=== PATIENT | female | born 1955 | race Caucasian/White ===

== ENCOUNTER 2020-08-02 07:23 | Outpatient (CLI) | payer MEDICARE, SELFPAY ==
[2020-08-02 07:49] LABS: Hematocrit 41.1 % (37.0-47.0); Hemoglobin 13.5 g/dL (12.0-15.0); Mean Corpuscular HGB Conc 32.8 g/dl (32-36); Mean Corpuscular Hemoglobin 28.5 pg (26-34); Mean Corpuscular Volume 86.7 fl (80-100); Mean Platelet Volume 10.1 fl (7.4-10.4); Platelet Count Result 287 k/mm3 (150-375); Red Blood Count 4.74 M/mm3 (4.2-5.4); White Blood Count 4.7 K/mm3 (4.5-10.0)
[2020-08-02 08:01] LABS: Alanine Aminotransferase 23 U/L (4-35); Albumin Level 3.8 g/dL (3.5-5.1); Alkaline Phosphatase 59 U/L (38-126); Anion Gap 7 mmol/L (8-16); Aspartate Amino Transferase 38 U/L (14-36); Bilirubin,Total 0.3 mg/dL (0.2-1.3); Blood Urea Nitrogen 13 mg/dL (7-17); Calcium 8.8 mg/dL (8.4-10.2); Carbon Dioxide 26 mmol/L (22-30); Chloride 107 mmol/L (98-107); Cholesterol 193 mg/dL (0-200); Estimated Glomerular Filt Rate > 60; Glucose 86 mg/dL (65-105); HDL Direct 41 mg/dL; Sodium 140 mmol/L (137-145); Triglycerides 76 mg/dL (<150)
[2020-08-02 08:12] LABS: Parathyroid Intact 42.1 pg/mL (7.5-53.5)
[2020-08-02 08:17] LABS: LDL Cholesterol Direct 120 mg/dL
[2020-08-02 08:30] LABS: Vitamin D 25 Hydroxy 84.3 ng/mL
[2020-08-04 18:08] LABS: Free T4 Free Thyroxine 1.12 ng/mL (0.78-2.19)
== END 2020-08-02 07:24 | disposition home or self-care (01) ==
PROVIDERS: PCP Family Medicine; Referring Provider Internal Medicine Endocrinology, Diabetes & Metabolism; Visit Provider Family Medicine
DX: Z13.6 Encounter for screening for cardiovascular disorders (principal); D64.9 Anemia, unspecified; E03.9 Hypothyroidism, unspecified; M81.0 Age-related osteoporosis without current pathological fracture; R73.02 Impaired glucose tolerance (oral); Z00.00 Encounter for general adult medical examination without abnormal findings; M81.6 Localized osteoporosis [Lequesne]
CPT/HCPCS: 36415; 80053; 80061; 82306; 83970; 84439; 84443; 85027

== ENCOUNTER 2020-08-18 13:48 | Outpatient (CLI) | payer MEDICARE, SELFPAY ==
--- NOTE | ~2020-08-18 | DEXA_ITS ---
Bone Density Report Name: Vilma Mckenzie Age: 65 Sex: Female Ethnicity: White Date of : 1955 Indication: postmenopausal osteoporosis; monitoring treatment; hyperparathyroidism; height loss; LOCALIZED OSTEOPOROSIS W/O CURRENT PATHOLOGICAL FRACTURE Referring Provider: PaxtonJaylan Study: Bone densitometry was performed. Exam Date: August 18, 2020 Accession number: [id number] Bone Density: Region BMD T-score Z-score Classification AP Spine (L1-L4) 0.700 -3.2 -1.4 Osteoporosis Femoral Neck (Left) 0.591 -2.3 -0.8 Osteopenia Total Hip (Left) 0.656 -2.3 -1.1 Osteopenia Total Hip Bilateral Avg 0.643 -2.4 -1.2 Osteopenia Femoral Neck (Right) 0.518 -3.0 -1.5 Osteoporosis Total Hip (Right) 0.629 -2.6 -1.3 Osteoporosis World Health Organization criteria for BMD impression classify patients as: Normal (T-score at or above -1.0), Osteopenia (T-score between -1.0 and -2.5), or Osteoporosis (T-score at or below -2.5). 10-year Fracture Risk: FRAX not reported because: Some T-score for Spine Total or Hip Total or Femoral Neck at or below -2.5 Treated for osteoporosis Previous Exams: Region Exam Age BMD T-score BMD Change BMD Change Date g/cm2 vs Baseline vs Previous AP Spine(L1-L4) 08/18/2020 65 0.700 -3.2 -0.009(-1.3%)# -0.023(-3.2%)* 08/12/2018 63 0.723 -2.9 0.014(2.0%)# 0.014(2.0%) 07/22/2016 61 0.709 -3.1 0.000(0.0%)# -0.023(-3.1%) 06/14/2014 59 0.732 -2.9 0.023(3.2%)# 0.023(3.2%)# 06/11/2012 57 0.709 -3.1 Total Hip(Left) 08/18/2020 65 0.656 -2.3 -0.027(-4.0%)# -0.059(-8.2%)* 08/12/2018 63 0.715 -1.9 0.031(4.6%)# 0.023(3.3%) 07/22/2016 61 0.692 -2.1 0.008(1.2%)# 0.028(4.2%)* 06/14/2014 59 0.664 -2.3 -0.020(-2.9%)# -0.020(-2.9%)# 06/11/2012 57 0.683 -2.1 Total Hip(Right) 08/18/2020 65 0.629 -2.6 -0.045(-6.7%)# -0.015(-2.3%) 08/12/2018 63 0.644 -2.4 -0.030(-4.5%)# -0.015(-2.2%) 07/22/2016 61 0.658 -2.3 -0.016(-2.3%)# -0.018(-2.6%) 06/14/2014 59 0.676 -2.2 0.002(0.3%)# 0.002(0.3%)# 06/11/2012 57 0.674 -2.2 *Denotes significance at 95% confidence level, LSC for AP Spine = 0.022 g/cm2, LSC for Total Hip = 0.027 g/cm2 Clinical Information Provided by Patient: Is being treated for osteoporosis Has used the following medications: Boniva (i.e. ibandronate), Evista (i.e. 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
== END 2020-08-18 13:49 | disposition home or self-care (01) ==
LOC: ANHIMG 13:50
PROVIDERS: PCP Family Medicine; Visit Provider Internal Medicine Endocrinology, Diabetes & Metabolism
DX: M81.0 Age-related osteoporosis without current pathological fracture (principal); M85.852 Other specified disorders of bone density and structure, left thigh; M85.851 Other specified disorders of bone density and structure, right thigh
CPT/HCPCS: 77080

== ENCOUNTER 2020-09-02 09:32 | Outpatient (CLI) | payer MEDICARE, SELFPAY ==
[2020-09-07 13:54] LABS: Total Volume 1700 mL; Urine Calcium 11.1 mg/dL
== END 2020-09-02 09:33 | disposition home or self-care (01) ==
PROVIDERS: PCP Family Medicine; Visit Provider Internal Medicine Endocrinology, Diabetes & Metabolism
DX: M81.8 Other osteoporosis without current pathological fracture (principal)
CPT/HCPCS: 82340

== ENCOUNTER 2020-09-18 08:46 | Outpatient (CLI) | payer MEDICARE, SELFPAY ==
--- NOTE | ~2020-09-18 | MM_ITS ---
EXAMINATION: MM screening porfirio BI w rosi HISTORY: Screening mammogram TECHNIQUE: Craniocaudal and mediolateral oblique 3-D tomosynthesis images were obtained and synthetic 2-D images were generated. CAD analysis was submitted and interpreted. COMPARISON: No prior mammogram is available for comparison at this institution. BREAST PARENCHYMAL COMPOSITION: The breasts are heterogeneously dense, which may obscure small masses . FINDINGS: Numerous microcalcifications are scattered in the breast, more numerous on the right. There is no evidence of suspicious mass, calcification, or architectural distortion to suggest malignancy in either breast. There has been no suspicious interval change. IMPRESSION: 1. No mammographic evidence of malignancy. 2. Recommend routine screening mammography in one year. BI-RADS Category 2: Benign finding(s). Reviewed, dictated and finalized at location A.
== END 2020-09-18 08:47 | disposition home or self-care (01) ==
PROVIDERS: PCP Family Medicine; Visit Provider Family Medicine
DX: Z12.31 Encounter for screening mammogram for malignant neoplasm of breast (principal)
CPT/HCPCS: 77063; 77067

== ENCOUNTER 2021-06-22 07:31 | Outpatient (CLI) | payer MEDICARE, SELFPAY ==
[2021-06-22 18:26] LABS: Hematocrit 42.8 % (37.0-47.0); Hemoglobin 13.5 g/dL (12.0-15.0); Mean Corpuscular HGB Conc 31.5 g/dl (32-36); Mean Corpuscular Hemoglobin 27.3 pg (26-34); Mean Corpuscular Volume 86.5 fl (80-100); Platelet Count Result 309 k/mm3 (150-375); Red Blood Count 4.95 M/mm3 (4.2-5.4); Red Cell Distribution Width 14.6 % (11.5-14.5); White Blood Count 5.5 K/mm3 (4.5-10.0)
[2021-06-22 18:36] LABS: Alanine Aminotransferase 29 U/L (4-35); Albumin Level 4.2 g/dL (3.5-5.1); Alkaline Phosphatase 104 U/L (38-126); Anion Gap 6 mmol/L (8-16); Aspartate Amino Transferase 37 U/L (14-36); Bilirubin,Total 0.4 mg/dL (0.2-1.3); Blood Urea Nitrogen 19 mg/dL (7-17); Calcium 9.7 mg/dL (8.4-10.2); Carbon Dioxide 29 mmol/L (22-30); Chloride 103 mmol/L (98-107); Cholesterol 223 mg/dL (0-200); Estimated Glomerular Filt Rate > 60; Glucose 94 mg/dL (65-110); HDL Direct 41 mg/dL; Potassium 4.5 mmol/L (3.4-5.0); Sodium 138 mmol/L (137-145); Triglycerides 116 mg/dL (<150)
[2021-06-22 18:46] LABS: LDL Cholesterol Direct 147 mg/dL
[2021-06-23 13:08] LABS: Free T4 Free Thyroxine Reflex 0.98 ng/dL (0.78-2.19)
[2021-06-23 13:59] LABS: Total Triiodothyronine (T3) 4.97 NG/ML (0.97-1.69)
== END 2021-06-22 07:32 | disposition home or self-care (01) ==
PROVIDERS: PCP Family Medicine; Referring Provider Internal Medicine Endocrinology, Diabetes & Metabolism; Visit Provider Family Medicine
DX: E78.2 Mixed hyperlipidemia (principal); R42 Dizziness and giddiness; E03.9 Hypothyroidism, unspecified
CPT/HCPCS: 36415; 80053; 80061; 84439; 84443; 84480; 85027

== ENCOUNTER 2021-06-29 11:01 | Outpatient (CLI) | payer MEDICARE, SELFPAY | END 2021-06-29 11:02 | disposition home or self-care (01) | LOC: ANHAUDASC 11:02 | PROVIDERS: PCP Family Medicine; Visit Provider Family Medicine | DX: H90.3 Sensorineural hearing loss, bilateral (principal) | CPT/HCPCS: 92557; 92567 ==

== ENCOUNTER 2021-07-06 10:16 | Outpatient (CLI) | payer MEDICARE, SELFPAY ==
[2021-07-06 11:24] LABS: Vitamin D 25 Hydroxy 69.3 ng/mL
[2021-07-09 14:49] LABS: Total Volume 2000 mL; Urine Calcium 20.6 mg/dL
== END 2021-07-06 10:17 | disposition home or self-care (01) ==
PROVIDERS: PCP Family Medicine; Visit Provider Internal Medicine Endocrinology, Diabetes & Metabolism
DX: M81.8 Other osteoporosis without current pathological fracture (principal); E55.9 Vitamin D deficiency, unspecified
CPT/HCPCS: 36415; 82306; 82340

== ENCOUNTER 2021-08-09 01:21 | Day surgery (SDC) | payer MEDICARE, SELFPAY ==
[2021-07-27 15:12] VITALS: BMI 19.6
--- NOTE | 2021-08-08 13:26 | PM.HPGS ---
History of Present Illness History of Present Illness Consent: Risks, benefits, and alternatives have been discussed and questions answered. Patient agrees to proceed with procedure. Chief complaint: positive cologuard Narrative: Vilma Mckenzie is a 66 year old female referred for colon cancer screening. She perform Cologuard test which was positive Review of Systems Review of Systems: All systems reviewed & are unremarkable except as noted in HPI and below PMFSH Past Medical History Medical History Hypothyroidism Surgical History Surgical History History of parathyroidectomy Hx of tonsillectomy Family History Family History Other Family history of glaucoma Social History Social History Smoking status: Never smoker Second hand tobacco smoke exposure: No Alcohol intake: never Substance use: never Living arrangements: alone Gender identity (if verbalized by the patient): Female Sexual Orientation (if Verbalized by the Patient): Straight or Heterosexual Spiritual care concerns: No Agree to blood products: Yes Meds Home Medications and Allergies Home Medications Medication Instructions Recorded Confirmed Type sumatriptan succinate 100 mg tablet See Rx Instructions PO .COMPLEX #9 07/07/20 07/27/21 Rx tablet azelaic acid 15 % topical gel 1 applic TOPICAL BID 06/12/21 07/27/21 History pimecrolimus 1 % topical cream 1 applic TOPICAL BID 06/12/21 07/27/21 History teriparatide 20 mcg/dose (600 20 mcg SUBCUT DAILY 06/12/21 07/27/21 History mcg/2.4 mL) subcutaneous pen injector calcium carbonate-vitamin D3 1 tablet PO DAILY 07/27/21 07/27/21 History [Calcium + D] cetirizine [Zyrtec] 10 mg PO DAILY 07/27/21 07/27/21 History levothyroxine 50 mcg PO DAILY 07/27/21 07/27/21 History multivitamin with minerals [All 1 tablet PO DAILY 07/27/21 07/27/21 History Purpose Multivitamin-Min] omega-3 fatty acids [Fish Oil] 1,000 mg PO DAILY 07/27/21 07/27/21 History Allergies Allergy/AdvReac Type Severity Reaction Status Date / Time latex Allergy Mild Unknown Verified 08/09/21 07:47 amoxicillin Allergy Unknown Unknown Verified 08/09/21 07:47 prednisone AdvReac Mild Other Verified 08/09/21 07:47 Exam Resp: Auscultation: clear to auscultation bilaterally Cardio: Rate: regular rate Rhythm: regular rhythm GI: GI Palp: Yes Soft to palpation and No Tenderness to palpation present (GI) Assessment and Plan Assessment and plan (1) Colon cancer screening: Code(s): Z12.11 - Encounter for screening for malignant neoplasm of colon Status: Acute Assessment and Plan: Colonoscopy with possible biopsy or polypectomy or cautery or injection of substances.
[2021-08-09 07:50] VITALS: BP 120/45; PULSE 94; RESP 18; O2SAT 100; BMI 19.0
[2021-08-09] MEDS: LACTATED RINGERS 1,000 ML 150 ML IV CONT (08:06)
--- NOTE | 2021-08-09 08:31 | WPDANESEPPF ---
Anes - Initial Pre Proc Eval Procedure: Operation Date: 08/09/21 09:00 Proposed Procedures p Colonoscopy - Peter Mota MD Date/Time: 08/09/21 08:31 Surgeon: Peter Mota MD Pre Op Diagnosis: positive cologuard Patient Data Age: 66 Gender: F Height: 1.75 m Weight: 58.4 kg Last Vital Signs Pulse 94 08/09/21 07:50 Resp 18 08/09/21 07:50 BP 120/45 L 08/09/21 07:50 Pulse Ox 100 08/09/21 07:50 Allergies Allergy/AdvReac Type Severity Reaction Status Date / Time latex Allergy Mild Unknown Verified 08/09/21 07:47 amoxicillin Allergy Unknown Unknown Verified 08/09/21 07:47 prednisone AdvReac Mild Other Verified 08/09/21 07:47 Home Medications Medication Instructions Recorded Confirmed Type sumatriptan succinate 100 mg tablet See Rx Instructions PO .COMPLEX #9 07/07/20 07/27/21 Rx tablet azelaic acid 15 % topical gel 1 applic TOPICAL BID 06/12/21 07/27/21 History pimecrolimus 1 % topical cream 1 applic TOPICAL BID 06/12/21 07/27/21 History teriparatide 20 mcg/dose (600 20 mcg SUBCUT DAILY 06/12/21 07/27/21 History mcg/2.4 mL) subcutaneous pen injector calcium carbonate-vitamin D3 1 tablet PO DAILY 07/27/21 07/27/21 History [Calcium + D] cetirizine [Zyrtec] 10 mg PO DAILY 07/27/21 07/27/21 History levothyroxine 50 mcg PO DAILY 07/27/21 07/27/21 History multivitamin with minerals [All 1 tablet PO DAILY 07/27/21 07/27/21 History Purpose Multivitamin-Min] omega-3 fatty acids [Fish Oil] 1,000 mg PO DAILY 07/27/21 07/27/21 History Patient hx anesthesia problems: none Family hx anesthesia problems: none Results Review: All pre-operative results and documents have been reviewed as part of the pre-operative evaluation. [facility] Past Medical History Medical History (Updated 08/09/21 @ 08:31 by Eliecer Broussard MD) Hypothyroidism Surgical History Surgical History History of parathyroidectomy Hx of tonsillectomy Family History Family History Other Family history of glaucoma Social History Social History Smoking status: Never smoker Second hand tobacco smoke exposure: No Alcohol intake: never Substance use: never Living arrangements: alone Gender identity (if verbalized by the patient): Female Sexual Orientation (if Verbalized by the Patient): Straight or Heterosexual Spiritual care concerns: No Agree to blood products: Yes Anes - Eval Final PreProcedure Day of Procedure 08/09/21 08:31 Patient weight: normal Heart: regular rate and rhythm Lungs: clear to auscultation Airway: Mallampati scale class II Neurological: alert and oriented Last oral intake: >/= 8 hours ASA classification: II Emergent: no Anesthetic plan: proceed Anesthesia type and monitoring: general GIVS and standard monitoring Results Review: All pre-operative results and documents have been reviewed as part of the pre-operative evaluation. Informed Consent: The patient's anesthetic plan and its attendant risks and benefits were discussed with the patient/family/POA. Questions were solicited and answers provided to the satisfaction of the patient/family/POA.
[2021-08-09 09:30] VITALS: BP 87/46; PULSE 79; RESP 25; O2SAT 96
[2021-08-09 09:40] VITALS: BP 94/58; PULSE 81; RESP 17; O2SAT 99
[2021-08-09 09:50] VITALS: BP 99/65; PULSE 75; RESP 17; O2SAT 99
== END 2021-08-09 10:01 | disposition home or self-care (01) ==
PROVIDERS: PCP Family Medicine; Visit Provider Internal Medicine Gastroenterology
PROC: 0DJD8ZZ Inspection of Lower Intestinal Tract, Via Natural or Artificial Opening Endoscopic (ICD-10-PCS; CPT 45378; principal; 2021-08-09 09:00)
DX: Z12.11 Encounter for screening for malignant neoplasm of colon (principal); K63.5 Polyp of colon; R19.5 Other fecal abnormalities; E03.9 Hypothyroidism, unspecified
CPT/HCPCS: 45381; 45385; 88305; J2704; J7120

== ENCOUNTER 2021-09-20 10:03 | Outpatient (CLI) | payer MEDICARE, SELFPAY ==
--- NOTE | ~2021-09-20 | MM_ITS ---
EXAMINATION: MM screening porfirio BI w rosi HISTORY: Screening TECHNIQUE: Craniocaudal and mediolateral oblique 3-D tomosynthesis images were obtained and synthetic 2-D images were generated. CAD analysis was submitted and interpreted. COMPARISON: Comparison to multiple prior studies sequentially, with oldest reviewed study dated 09/2012. BREAST PARENCHYMAL COMPOSITION: The breasts are heterogeneously dense, which may obscure small masses . FINDINGS: Stable benign-appearing right breast calcifications. There is no evidence of suspicious mas s, calcification, or architectural distortion to suggest malignancy in either breast. There has been no suspicious interval change. IMPRESSION: 1. No mammographic evidence of malignancy. 2. Recommend routine screening mammography in one year. BI-RADS Category 2: Benign finding(s). Reviewed, dictated and finalized at location A.
== END 2021-09-20 10:04 | disposition home or self-care (01) ==
LOC: ANHIMG 10:05
PROVIDERS: PCP Family Medicine; Visit Provider Family Medicine
DX: Z12.31 Encounter for screening mammogram for malignant neoplasm of breast (principal)
CPT/HCPCS: 77063; 77067

== ENCOUNTER → 2022-06-25 14:40 | Outpatient (CLI) | payer MEDICARE, SELFPAY ==
--- NOTE | ~2022-06-25 | XR_ITS ---
XR knee LT 3V 06/25/2022 14:59 Indication: Left knee pain Procedure: 3 views left knee Comparison: No prior studies for comparison. Findings: There is anatomic alignment. No significant joint space narrowing. No fracture, subluxation or dislocation. No joint effusion. Small marginal osteophyte lateral aspect of the patellofemoral co mpartment. Impression: 1: Mild osteoarthritis of the left knee.. Reviewed, dictated and finalized at location A. 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
--- NOTE | ~2022-06-25 | XR_ITS ---
XR knee RT 3V 06/25/2022 14:59 INDICATION: Right knee pain PROCEDURE: 3 views right knee COMPARISON: 10/10/2017 FINDINGS: Fracture, dislocation or subluxation is not identified. No significant joint effusion. The soft tissues appear within normal limits. No foreign bodies are identified. No significant joint spa ce narrowing. IMPRESSION: 1: No significant bone or joint abnormality. Reviewed, dictated and finalized at location A. [employer]
== END ==
PROVIDERS: PCP Family Medicine; Visit Provider Family Medicine
DX: M17.12 Unilateral primary osteoarthritis, left knee (principal); M25.569 Pain in unspecified knee
CPT/HCPCS: 73562

== ENCOUNTER 2022-06-26 08:10 | Outpatient (CLI) | payer MEDICARE, SELFPAY ==
[2022-06-26 20:18] LABS: LDL Cholesterol Direct 121 mg/dL
[2022-06-26 20:22] LABS: Alanine Aminotransferase 39 U/L (6-35); Albumin Level 4.1 g/dL (3.5-5.1); Alkaline Phosphatase 95 U/L (38-126); Anion Gap 8 mmol/L (8-16); Aspartate Amino Transferase 45 U/L (14-36); Bilirubin,Total 0.4 mg/dL (0.2-1.3); Blood Urea Nitrogen 16 mg/dL (7-17); Calcium 9.1 mg/dL (8.4-10.2); Carbon Dioxide 27 mmol/L (22-30); Chloride 104 mmol/L (98-107); Cholesterol 204 mg/dL (0-200); Estimated Glomerular Filt Rate > 60; Glucose 34 mg/dL (65-110); HDL Direct 37 mg/dL; Potassium 5.2 mmol/L (3.4-5.0); Sodium 139 mmol/L (137-145); Triglycerides 89 mg/dL (<150)
[2022-06-26 20:25] LABS: Vitamin D 25 Hydroxy 48.4 ng/mL
[2022-06-26 20:34] LABS: Basophils Absolute Auto 0.1 K/mm3 (0.0-0.1); Eosinophils Absolute Auto 0.1 K/mm3 (0-0.3); Eosinophils Percent Auto 1.8 % (0-4.4); Hematocrit 43.5 % (37.0-47.0); Hemoglobin 13.5 g/dL (12.0-15.0); Immature Granulocyte Absolute 0.01 K/mm3 (0.00-0.031); Immature Granulocyte Percent A 0.2 % (0-0.5); Lymphocytes Absolute Auto 1.77 K/mm3 (0.9-3.2); Lymphocytes Percent Auto 28.9 % (18.3-44.2); Mean Corpuscular Hemoglobin 26.3 pg (26-34); Mean Corpuscular Volume 84.8 fl (80-100); Mean Platelet Volume 11.1 fl (7.4-10.4); Monocytes Absolute Auto 0.7 K/mm3 (0.1-0.6); Monocytes Percent Auto 11.6 % (2.6-8.5); Neutrophils Absolute Auto 3.5 K/mm3 (1.3-6.7); Neutrophils Percent Auto 56.5 % (45.5-73.1); Platelet Count Result 303 k/mm3 (150-375); Red Blood Count 5.13 M/mm3 (4.2-5.4); Red Cell Distribution Width 15.2 % (11.5-14.5); White Blood Count 6.1 K/mm3 (4.5-10.0)
== END 2022-06-26 08:11 | disposition home or self-care (01) ==
LOC: ANHGOSHLAB 08:12
PROVIDERS: PCP Family Medicine; Visit Provider Family Medicine
DX: E03.9 Hypothyroidism, unspecified (principal); E55.9 Vitamin D deficiency, unspecified; E78.2 Mixed hyperlipidemia; R42 Dizziness and giddiness
CPT/HCPCS: 36415; 80053; 80061; 82306; 84443; 85025

== ENCOUNTER 2022-09-25 12:11 | Outpatient (CLI) | payer MEDICARE, SELFPAY ==
--- NOTE | ~2022-09-25 | MM_ITS ---
EXAMINATION: MM screening porfirio BI w rosi HISTORY: Screening mammogram TECHNIQUE: Craniocaudal and mediolateral oblique 3-D tomosynthesis images were obtained and synthetic 2-D images were generated. CAD analysis was submitted and interpreted. COMPARISON: 09/20/2021, 09/18/2020, 04/28/2017 BREAST PARENCHYMAL COMPOSITION: The breasts are heterogeneously dense, which may obscure small masses . FINDINGS: Scattered benign-appearing calcifications are present. No suspicious mass, calcification, o r architectural distortion are identified in either breast to suggest malignancy. There has been no s uspicious interval change. IMPRESSION: 1. No mammographic evidence of malignancy. 2. Recommend routine screening mammography in one year. BI-RADS Category 2: Benign finding(s). Reviewed, dictated and finalized at location A.
== END 2022-09-25 12:12 | disposition home or self-care (01) ==
LOC: ANHIMG 12:12
PROVIDERS: PCP Family Medicine; Visit Provider Family Medicine
DX: Z12.31 Encounter for screening mammogram for malignant neoplasm of breast (principal)
CPT/HCPCS: 77063; 77067

== ENCOUNTER 2022-09-25 12:50 | Outpatient (CLI) | payer MEDICARE, SELFPAY ==
[2022-09-25 15:25] LABS: Anion Gap 8 mmol/L (8-16); Blood Urea Nitrogen 21 mg/dL (7-17); Calcium 9.3 mg/dL (8.4-10.2); Carbon Dioxide 27 mmol/L (22-30); Chloride 103 mmol/L (98-107); Estimated Glomerular Filt Rate > 60; Glucose 99 mg/dL (65-110); Potassium 4.2 mmol/L (3.4-5.0); Sodium 138 mmol/L (137-145)
== END 2022-09-25 12:51 | disposition home or self-care (01) ==
LOC: ANHGOSHLAB 12:51
PROVIDERS: PCP Family Medicine; Visit Provider Family Medicine
DX: E87.5 Hyperkalemia (principal)
CPT/HCPCS: 36415; 77063; 77067; 80048

== ENCOUNTER 2023-10-10 10:30 | Outpatient (CLI) | payer MEDICARE, SELFPAY ==
--- NOTE | ~2023-10-10 | MM_ITS ---
EXAMINATION: MM screening porfirio BI w rosi HISTORY: Screening mammogram TECHNIQUE: Craniocaudal and mediolateral oblique 3-D tomosynthesis images were obtained and synthetic 2-D images were generated. CAD analysis was submitted and interpreted. COMPARISON: 09/25/2022, 09/20/2021 bilateral screening mammogram examinations BREAST PARENCHYMAL COMPOSITION: The breasts are heterogeneously dense, which may obscure small masses . FINDINGS: Scattered bilateral benign calcifications are again identified. There is no evidence of kapil picious mass, calcification, or architectural distortion to suggest malignancy in either breast. Ther e has been no suspicious interval change. IMPRESSION: 1. No mammographic evidence of malignancy. 2. Recommend routine screening mammography in one year. BI-RADS Category 2: Benign finding(s). Reviewed, dictated and finalized at location B.
== END 2023-10-10 10:31 | disposition home or self-care (01) ==
PROVIDERS: PCP Family Medicine; Visit Provider Family Medicine
DX: Z12.31 Encounter for screening mammogram for malignant neoplasm of breast (principal)
CPT/HCPCS: 77063; 77067

== ENCOUNTER 2024-01-05 08:14 | Outpatient (CLI) | payer MEDICARE, SELFPAY ==
[2024-01-05 18:02] LABS: LDL Cholesterol Direct 145 mg/dL
[2024-01-05 19:24] LABS: Aspartate Amino Transferase 36 U/L (14-36); Potassium 4.4 mmol/L (3.4-5.0)
[2024-01-05 19:27] LABS: Alanine Aminotransferase 24 U/L (6-35); Albumin Level 4.2 g/dL (3.5-5.1); Alkaline Phosphatase 39 U/L (38-126); Anion Gap 12 mmol/L (4-12); Bilirubin,Total 0.8 mg/dL (0.2-1.3); Blood Urea Nitrogen 17 mg/dL (7-17); Calcium 9.1 mg/dL (8.4-10.2); Carbon Dioxide 22 mmol/L (22-30); Chloride 100 mmol/L (98-107); Cholesterol 231 mg/dL (0-200); Estimated Glomerular Filt Rate > 60; Glucose 61 mg/dL (65-110); HDL Direct 61 mg/dL; Sodium 134 mmol/L (137-145); Triglycerides 73 mg/dL (<150)
== END 2024-01-05 08:15 | disposition home or self-care (01) ==
PROVIDERS: PCP Family Medicine; Visit Provider Family Medicine
DX: E03.9 Hypothyroidism, unspecified (principal); E78.2 Mixed hyperlipidemia
CPT/HCPCS: 36415; 80053; 80061; 84443

== ENCOUNTER 2024-01-12 10:55 | Outpatient (CLI) | payer MEDICARE, SELFPAY | END 2024-01-12 10:56 | disposition home or self-care (01) | LOC: ANHAUDASC 10:55 | PROVIDERS: PCP Family Medicine; Visit Provider Family Medicine | DX: H90.3 Sensorineural hearing loss, bilateral (principal) | CPT/HCPCS: 92557; 92567 ==

== ENCOUNTER 2024-02-12 07:48 | Outpatient (NON) | payer MEDICARE, SELFPAY | END 2024-02-12 07:49 | disposition home or self-care (01) | PROVIDERS: PCP Family Medicine; Visit Provider Internal Medicine Gastroenterology | DX: K63.5 Polyp of colon (principal); D12.3 Benign neoplasm of transverse colon; Z86.010 Personal history of colon polyps | CPT/HCPCS: 88305 ==

== ENCOUNTER 2024-02-12 07:54 | Day surgery (SDC) | payer MEDICARE, SELFPAY ==
[2024-01-05 07:49] VITALS: BMI 21.4
[2024-01-22 09:56] VITALS: BMI 21.1
--- NOTE | 2024-02-11 13:14 | WPDANESEPPF ---
Anes - Initial Pre Proc Eval Procedure: Operation Date: 02/12/24 10:00 Proposed Procedures p Diagnostic Colonoscopy - Kumar Garcia MD Date/Time: 02/11/24 13:14 Surgeon: Kumar Garcia MD Pre Op Diagnosis: History of Colon Polyps Patient Data Age: 68 Gender: F Height: 1.73 m Weight: 63 kg Allergies Allergy/AdvReac Type Severity Reaction Status Date / Time latex Allergy Mild Unknown Verified 02/12/24 08:42 prednisone AdvReac Mild Other Verified 02/12/24 08:42 amoxicillin AdvReac Unknown Diarrhea Verified 02/12/24 08:42 Home Medications Medication Instructions Recorded Confirmed Type pimecrolimus 1 % topical cream 1 applic topical BID PRN ECZEMA 06/12/21 02/12/24 History calcium carbonate 600 mg-vitamin 1 tablet PO DAILY 07/27/21 02/12/24 History D3 5 mcg (200 unit) tablet cetirizine 10 mg capsule (Zyrtec) 10 mg PO DAILY 07/27/21 02/12/24 History levothyroxine 50 mcg tablet 50 mcg PO DAILY 07/27/21 02/12/24 History multivitamin with minerals 1 tablet PO DAILY 07/27/21 02/12/24 History conjugated estrogens 0.625 mg/gram 0.625 mg vaginal 2XW #30 grams 12/11/21 02/12/24 Rx vaginal cream azelastine 137 mcg (0.1 %) nasal 1 spray intranasal Q12H #30 mL 12/31/23 02/12/24 Rx spray denosumab 60 mg/mL subcutaneous 60 mg subcut [id number] 12/31/23 02/12/24 History syringe (Prolia) sumatriptan succinate 100 mg tablet See Rx Instructions PO .COMPLEX #9 12/31/23 02/12/24 Rx tabs riboflavin (vitamin B2) 50 mg 50 mg PO DAILY 01/22/24 02/12/24 History tablet turmeric root extract 500 mg 500 mg PO DAILY 01/22/24 02/12/24 History capsule Patient hx anesthesia problems: none Family hx anesthesia problems: none Results Review: All pre-operative results and documents have been reviewed as part of the pre-operative evaluation. [facility] Past Medical History Medical History Chronic rhinitis Hypothyroidism Surgical History Surgical History History of parathyroidectomy Hx of tonsillectomy Family History Family History Other Family history of glaucoma Social History Social History Smoking status: Never smoker Second hand tobacco smoke exposure: No Alcohol intake: current Drinks per week: 0 Alcohol use details: RARE, 3 TIMES A YEAR Substance use: never Substance use type: does not use Lack of Transportation: No Lack of Food: Never True Current Housing: I Have Housing Concerned About Future Housing: No Difficulty Paying Gas/Electric Bills: No Difficulty Paying for Meds: No Currently Unemployed: No Education: Master's Degree or Higher Difficulty w/ Childcare or Family Care: No Living arrangements: with family Gender identity (if verbalized by the patient): Female Sexual Orientation (if Verbalized by the Patient): Straight or Heterosexual Spiritual care concerns: No Agree to blood products: Yes Anes - Eval Final PreProcedure Day of Procedure Patient weight: normal Heart: regular rate and rhythm Lungs: clear to auscultation and normal air movement Airway: Mallampati scale class II Neurological: alert and oriented Last oral intake: >/= 8 hours ASA classification: II Emergent: no Anesthetic plan: proceed Anesthesia type and monitoring: general GIVS and standard monitoring
[2024-02-12 08:43] VITALS: BP 110/74; PULSE 79; RESP 15; TEMP 36.6; O2SAT 100
[2024-02-12] MEDS: LACTATED RINGERS 1,000 ML 150 ML IV CONT (08:49)
--- NOTE | 2024-02-12 09:32 | PM.HPGS ---
History of Present Illness History of Present Illness Consent: Risks, benefits, and alternatives have been discussed and questions answered. Patient agrees to proceed with procedure. Chief complaint: History of Colon Polyps Narrative: Vilma Mckenzie is a 68 year old female presents for screening colonoscopy. Patient's current weight appetite and bowel movements are normal. She denies abdominal pain. Patient has had no bleeding. Patient does have a history of a rather large polyp resected in 2021. Because of its large size follow-up colonoscopy is advised at this time. Patient's family history noncontributory. Review of Systems Review of Systems: All systems reviewed & are unremarkable except as noted in HPI and below PMFSH Past Medical History Medical History Chronic rhinitis Hypothyroidism Surgical History Surgical History History of parathyroidectomy Hx of tonsillectomy Family History Family History Other Family history of glaucoma Social History Social History Smoking status: Never smoker Second hand tobacco smoke exposure: No Alcohol intake: current Drinks per week: 0 Alcohol use details: RARE, 3 TIMES A YEAR Substance use: never Substance use type: does not use Lack of Transportation: No Lack of Food: Never True Current Housing: I Have Housing Concerned About Future Housing: No Difficulty Paying Gas/Electric Bills: No Difficulty Paying for Meds: No Currently Unemployed: No Education: Master's Degree or Higher Difficulty w/ Childcare or Family Care: No Living arrangements: with family Gender identity (if verbalized by the patient): Female Sexual Orientation (if Verbalized by the Patient): Straight or Heterosexual Spiritual care concerns: No Agree to blood products: Yes Meds Home Medications and Allergies Home Medications Medication Instructions Recorded Confirmed Type pimecrolimus 1 % topical cream 1 applic topical BID PRN ECZEMA 06/12/21 02/12/24 History calcium carbonate 600 mg-vitamin 1 tablet PO DAILY 07/27/21 02/12/24 History D3 5 mcg (200 unit) tablet cetirizine 10 mg capsule (Zyrtec) 10 mg PO DAILY 07/27/21 02/12/24 History levothyroxine 50 mcg tablet 50 mcg PO DAILY 07/27/21 02/12/24 History multivitamin with minerals 1 tablet PO DAILY 07/27/21 02/12/24 History conjugated estrogens 0.625 mg/gram 0.625 mg vaginal 2XW #30 grams 12/11/21 02/12/24 Rx vaginal cream azelastine 137 mcg (0.1 %) nasal 1 spray intranasal Q12H #30 mL 12/31/23 02/12/24 Rx spray denosumab 60 mg/mL subcutaneous 60 mg subcut [id number] 12/31/23 02/12/24 History syringe (Prolia) sumatriptan succinate 100 mg tablet See Rx Instructions PO .COMPLEX #9 12/31/23 02/12/24 Rx tabs riboflavin (vitamin B2) 50 mg 50 mg PO DAILY 01/22/24 02/12/24 History tablet turmeric root extract 500 mg 500 mg PO DAILY 01/22/24 02/12/24 History capsule Allergies Allergy/AdvReac Type Severity Reaction Status Date / Time latex Allergy Mild Unknown Verified 02/12/24 08:42 prednisone AdvReac Mild Other Verified 02/12/24 08:42 amoxicillin AdvReac Unknown Diarrhea Verified 02/12/24 08:42 Vital Signs Vital Signs - 24 hr 02/12/24 08:43 Temperature 97.9 F Pulse Rate 79 Respiratory Rate 15 Blood Pressure 110/74 Pulse Oximetry 100 Oxygen Delivery Room Air Exam Narrative: Physical exam reveals patient to be alert signs stable. HEENT exam is unremarkable. Patient is anicteric. Lungs are clear to auscultation and percussion. Heart is without murmur or extra sounds. Abdomen bowel sounds are present soft nontender with no organomegaly. Digital external rectal exam normal. Assessment and Plan Assessment and plan (1) History of colon polyps: Code
[2024-02-12 10:09] VITALS: BP 80/54; PULSE 73; RESP 14; O2SAT 98
[2024-02-12 10:19] VITALS: BP 82/55; PULSE 74; RESP 16; O2SAT 99
--- NOTE | 2024-02-12 10:21 | SUR.PHASEII ---
1009; DR BYRNES BROUGHT PT TO [facility]. BP 80/54. IVF INFUSING PER DR BYRNES
[2024-02-12 10:29] VITALS: BP 101/75; PULSE 66; RESP 16; O2SAT 99
--- NOTE | 2024-02-12 10:47 | SUR.PHASEII ---
PT MEETS DISCHARGE CRITERIA. WAITING FOR RIDE
--- NOTE | 2024-02-12 10:50 | WPDANESPN ---
Anes - Prog Note Post-Op Date/Time: 02/12/24 10:50 Cardiovascular status: normal Respiratory status: normal Airway patency: baseline Mental status: baseline Post-Op hydration status: normal Vital Signs: Last Vital Signs Temp 36.6 C 02/12/24 08:43 Pulse 66 02/12/24 10:29 Resp 16 02/12/24 10:29 BP 101/75 02/12/24 10:29 Pulse Ox 99 02/12/24 10:29 O2 Del Method Room Air 02/12/24 10:29 Pain Score (VAS): 0 I/O: Intake & Output 02/11/24 02/12/24 02/12/24 23:59 07:59 15:59 Intake Total 700 Balance 700 Post-procedural complaints: none Patient Feedback: Patient satisfied with anesthetic care. Other Findings: Patient vital signs back to baseline. Patient denies nausea and vomiting. Patient's pain under control. Patient OK for discharge.
== END 2024-02-12 10:49 | disposition home or self-care (01) ==
PROVIDERS: PCP Family Medicine; Visit Provider Internal Medicine Gastroenterology
PROC: 0DJD8ZZ Inspection of Lower Intestinal Tract, Via Natural or Artificial Opening Endoscopic (ICD-10-PCS; CPT 45378; principal; 2024-02-12 10:00)
DX: Z86.010 Personal history of colon polyps (principal); D12.3 Benign neoplasm of transverse colon; K64.8 Other hemorrhoids
CPT/HCPCS: 45385

== ENCOUNTER 2024-07-23 08:21 | Observation (INO) | payer MEDICARE, SELFPAY ==
[2024-07-23] VITALS (20 sets, daily range): BP systolic 119–151; BP diastolic 72–100; PULSE 58–80; RESP 12–28; TEMP 36.2–36.4; O2SAT 99–100; BMI 16.7
--- NOTE | 2024-07-23 09:01 | ED.GENADULT ---
HPI - General Adult General Chief complaint: Abdominal Pain Stated complaint: abdominal pain Time Seen by Provider: 07/23/24 09:01 Source: patient Mode of arrival: ambulatory Limitations: no limitations History of Present Illness HPI narrative: 69 YEARS OLD WHITE FEMALE CAME TO THE ED BY PRIVATE CAR BECAUSE OF ABDOMINAL PAIN. PATIENT IS TELLING ME THAT SHE HAD LEFT LOWER QUADRANT PAIN LAST NIGHT, THIS MORNING RADIATING ACROSS LOWER ABDOMEN TO THE RIGHT SIDE, ASSOCIATED WITH NAUSEA AND VOMITING ONCE. PATIENT DENIES AGGRAVATING OR RELIEVING FACTORS, HISTORY OF HYPOTHYROIDISM, DRINKS ALCOHOL OCCASIONALLY, DOES NOT SMOKE OR USE DRUGS. NO HISTORY OF ABDOMINAL SURGERY. Related Data Home Medications ?Medication ?Instructions ?Recorded ?Confirmed ?Last Taken ?Type pimecrolimus 1 % topical cream 1 applic topical BID PRN ECZEMA 06/12/21 07/23/24 01/18/24 History calcium 600 mg (as 1 tablet PO DAILY 07/27/21 07/23/24 07/22/24 History carbonate)-vitamin D3 5 mcg (200 unit) tablet cetirizine 10 mg capsule (Zyrtec) 10 mg PO DAILY 07/27/21 07/23/24 07/22/24 History levothyroxine 50 mcg tablet 50 mcg PO DAILY 07/27/21 07/23/24 07/23/24 History multivitamin with minerals 1 tablet PO DAILY 07/27/21 07/23/24 07/22/24 History denosumab 60 mg/mL subcutaneous 60 mg subcut [id number] 12/31/23 07/23/24 09/24/23 History syringe (Prolia) riboflavin (vitamin B2) 50 mg 50 mg PO DAILY 01/22/24 07/23/24 07/22/24 History tablet turmeric root extract 500 mg 500 mg PO DAILY 01/22/24 07/23/24 07/22/24 History capsule Allergies Allergy/AdvReac Type Severity Reaction Status Date / Time latex Allergy Mild Unknown Verified 07/23/24 08:44 prednisone AdvReac Mild Other Verified 07/23/24 08:44 amoxicillin AdvReac Unknown Diarrhea Verified 07/23/24 08:44 Review of Systems Review of Systems: All systems reviewed & are unremarkable except as noted in HPI and below PMFSH Past Medical History Medical History Mixed hyperlipidemia Hearing loss Chronic rhinitis Migraine headache Vaginal prolapse TMJ (temporomandibular joint disorder) History of colon polyps Osteoporosis Hypothyroidism Surgical History Surgical History Hx of tonsillectomy History of parathyroidectomy Family History Family History Sibling Malignant neoplasm of prostate Hypercholesteremia Mother Osteoporosis Grandparent Osteoporosis Other Family history of glaucoma Social History Social History Smoking status: Never smoker Second hand tobacco smoke exposure: No Alcohol intake: never Drinks per week: 0 Alcohol use details: RARE, 3 TIMES A YEAR Substance use: never Substance use type: does not use Do You Feel Safe in your Home?: Yes Lack of Transportation: No Lack of Food: Never True Current Housing: I Have Housing Concerned About Future Housing: No Difficulty Paying Gas/Electric Bills: No Difficulty Paying for Meds: No Currently Unemployed: No Education: Master's Degree or Higher Difficulty w/ Childcare or Family Care: No Living arrangements: with family Gender identity (if verbalized by the patient): Female Sexual Orientation (if Verbalized by the Patient): Straight or Heterosexual Spiritual care concerns: No Agree to blood products: Yes Exam Narrative: GENERAL APPEARANCE: WELL-DEVELOPED, WELL-NOURISHED SKIN: NORMAL COLOR HEAD: NORMOCEPHALIC, NONTRAUMATIC EYES: CLEAR CONJUNCTIVA ENT: OROPHARYNX NORMAL, EARS NORMAL, NOSE NORMAL NECK: SUPPLE, NONTENDER CHEST AND RESPIRATORY: AIRWAY PATENT, NO RESPIRATORY DISTRESS, NO ACCESSORY MUSCLE USE HEART: REGULAR RATE/RHYTHM ABDOMEN: SOFT, MILD TENDERNESS RIGHT LOWER QUADRANT AND SUPRAPUBIC AREA NO GUARDING OR REBOUND NO ORGANOMEGALY, QUIET BOWEL SOUNDS VASCULAR: NORMAL PERIPHERAL PULSES, NORMAL CAPILLARY REFILL. MUSCULOSKELETAL: NORMAL RANGE OF MOTION, NONTENDER BACK NEUROLOGIC: ALERT AND ORIENTED ?3, MANAGEMENT LEAD IS NORMAL TESTED, NO GROSS MOTOR DEFICIT Course Consultations Consultation #1: DR DAWSON ADMIT TO HOSPITALIST Date: 07/23/24 Time: 12:04 Vital Signs Vital signs: Vital Signs Pulse Rate 63 07/23/24 08:32 Respiratory Rate 15 07/23/24 08:32 Blood Pressure 151/86 H 07/23/24 08:32 Pulse Oximetry 100 07/23/24 08:32 Temperature 36.4 C 07/23/24 13:46 Pulse Rate 77 07/23/24 13:46 Respiratory Rate 16 07/23/24 13:46 Blood Pressure 149/83 H 07/23/24 13:46 Pulse Oximetry 100 07/23/24 13:46 Oxygen Delivery Room Air 07/23/24 08:44 Medical Decision Making MDM Narrative Medical decision making narrative: PATIENT PRESENTS WITH ABDOMINAL PAIN VITAL SIGNS STABLE PHYSICAL EXAMINATION SHOWING SLIGHT TENDERNESS RIGHT LOWER QUADRANT WITHOUT GUARDING REBOUND DIFFERENTIAL DIAGNOSIS APPENDICITIS, CONSTIPATION, CHOLECYSTITIS, DIVERTICULITIS, COLITIS, URINARY TRACT INFECTION BLOOD WORKUP TODAY INCLUDES CBC, CMP, LIPASE, LACTIC ACID SHOWED INSIGNIFICANT ABNORMALITY URINALYSIS SHOWED NO EVIDENCE OF INFECTION CHEST X-RAY SHOWED NO ACUTE ABNORMALITIES CT ABDOMEN AND PELVIS WITH IV CONTRAST SHOWED QUESTIONABLE APPENDICITIS ADMIT TO HOSPITALIST, DISCUSSED WITH DR. DAWSON Vital Signs Vital Signs: Vital Signs Pulse Rate 63 07/23/24 08:32 Respiratory Rate 15 07/23/24 08:32 Blood Pressure 151/86 H 07/23/24 08:32 Pulse Oximetry 100 07/23/24 08:32 Temperature 36.4 C 07/23/24 13:46 Pulse Rate 77 07/23/24 13:46 Respiratory Rate 16 07/23/24 13:46 Blood Pressure 149/83 H 07/23/24 13:46 Pulse Oximetry 100 07/23/24 13:46 Oxygen Delivery Room Air 07/23/24 08:44 Lab Data 07/23/24 09:13 07/23/24 09:13 Labs: Lab Results 07/23/24 07/23/24 Range/Units 09:13 09:26 WBC 9.1 (4.5-10.0) K/mm3 RBC 5.11 (4.2-5.4) M/mm3 Hgb 15.0 (12.0-15.0) g/dL Hct 45.6 (37.0-47.0) % MCV 89.2 (80-100) fl MCH 29.4 (26-34) pg MCHC 32.9 (32-36) g/dl RDW 13.2 (11.5-14.5) % Plt Count 270 (150-375) k/mm3 MPV 10.0 (7.4-10.4) fl Immature Gran % (Auto) 0.2 (0-0.5) % Neut % (Auto) 86.5 H (45.5-73.1) % Lymph % (Auto) 8.9 L (18.3-44.2) % [place] % (Auto) 3.9 (2.6-8.5) % Eos % (Auto) 0.1 (0-4.4) % Baso % (Auto) 0.4 (0.2-1.2) % Lymph # (Auto) 0.81 L (0.9-3.2) K/mm3 [place] # (Auto) 0.4 (0.1-0.6) K/mm3 Eos # (Auto) 0.0 (0-0.3) K/mm3 Baso # (Auto) 0.0 (0.0-0.1) K/mm3 Abs Immat Gran (auto) 0.02 (0.00-0.031) K/mm3 Absolute Neuts (auto) 7.8 H (1.3-6.7) K/mm3 Absolute Nucleated RBC 0.000 (0.0-0.012) K/mm3 Nucleated RBC % 0.0 (0.0-0.2) % Sodium 138 (137-145) mmol/L Potassium 3.8 (3.4-5.0) mmol/L Chloride 103 (98-107) mmol/L Carbon Dioxide 23 (22-30) mmol/L Anion Gap 12 (4-12) mmol/L BUN 14 (7-17) mg/dL Creatinine 0.66 L (0.7-1.0) mg/dL Estim Creat Clear Calc 67 ml/min Estimated GFR > 60 (59 - ) Glucose 114 H (65-110) mg/dL Lactic Acid 1.0 (0.7-2.0) mmol/L Calcium 9.0 (8.4-10.2) mg/dL Total Bilirubin 0.6 (0.2-1.3) mg/dL AST 36 (14-36) U/L ALT 29 (6-35) U/L Alkaline Phosphatase 58 (38-126) U/L Troponin I < 0.012 (0.000-0.034) ng/mL Total Protein 7.0 (6.3-8.2) g/dL Albumin 4.5 (3.5-5.1) g/dL Lipase 34 (23-300) U/L Urine Color Dark yellow (Yellow) Urine Appearance Clear (Clear) Urine pH 7.0 (5.0-9.0) Ur Specific [place] 1.018 (1.001-1.035) Urine Protein Trace (Negative) mg/dL Urine Glucose (UA) Negative (Negative) mg/dL Urine Ketones 2+ H (Negative) mg/dL Ur Blood (Man) Negative (Negative) Urine Nitrate Negative (Negative) Urine Bilirubin Negative (Negative) Urine Urobilinogen 0.2 (<2.0) mg/dL Leukocyte Esterase Rfl Negative (Negative) YOHANA/UL Urine RBC 0-2 (0-2) /hpf Urine WBC 0-5 (0-3) /hpf Ur Squamous Epith Cells Occasional (Few) /hpf Urine Bacteria None seen /hpf Urine Casts 0-2 Imaging Data Radiologist's impression: Impressions Chest X-Ray 07/23/24 09:48 IMPRESSION: 1. No acute cardiopulmonary disease. Abdomen/Pelvis CT 07/23/24 10:06 IMPRESSION: 1. Fluid-filled appendix dilated to 1.6 cm which raises suspicion for acute appendicitis but without evident wall thickening or periappendiceal inflammatory stranding to more specifically suggest this. 2. Large moderate proximal colonic stool with additional thickened material in the distal ileum suggestive of constipation. 2. 3 separate 8-11 mm cystic lesions in the head and body of the pancreas. The differential diagnosis includes pseudocyst, intraductal papillary mucinous neoplasm (IPMN), mucinous cystic neoplasm (MCN), and the less common serous cystadenoma and neuroendocrine tumor. Correlate for history of pancreatitis and consider 1 year follow-up pre and postcontrast MRI. Critical Care Time Critical Care Time Critical Care Time: No Discharge Plan Discharge Clinical Impression: Abdominal pain, Acute constipation Patient Disposition: Still a Patient Condition: Stable
[2024-07-23] MEDS: SODIUM CHLORIDE 0.9% IV 1,000 ML 999 ML IV CONT (09:12)
[2024-07-23 09:22] LABS: Basophils Percent Auto 0.4 % (0.2-1.2); Eosinophils Percent Auto 0.1 % (0-4.4); Hematocrit 45.6 % (37.0-47.0); Immature Granulocyte Absolute 0.02 K/mm3 (0.00-0.031); Immature Granulocyte Percent A 0.2 % (0-0.5); Lymphocytes Absolute Auto 0.81 K/mm3 (0.9-3.2); Lymphocytes Percent Auto 8.9 % (18.3-44.2); Mean Corpuscular HGB Conc 32.9 g/dl (32-36); Mean Corpuscular Hemoglobin 29.4 pg (26-34); Mean Corpuscular Volume 89.2 fl (80-100); Monocytes Absolute Auto 0.4 K/mm3 (0.1-0.6); Monocytes Percent Auto 3.9 % (2.6-8.5); Neutrophils Absolute Auto 7.8 K/mm3 (1.3-6.7); Neutrophils Percent Auto 86.5 % (45.5-73.1); Platelet Count Result 270 k/mm3 (150-375); Red Blood Count 5.11 M/mm3 (4.2-5.4); Red Cell Distribution Width 13.2 % (11.5-14.5); White Blood Count 9.1 K/mm3 (4.5-10.0)
[2024-07-23 09:27] LABS: Add Urine Microscopic? YES; Appearance Urine Clear (Clear); Bacteria Urine None Seen /hpf; Bilirubin Urine Negative (Negative); Blood Urine Negative (Negative); Color Urine Dark Yellow (Yellow); Glucose Urine UA Negative (Negative); Ketones Urine 2+ mg/dL (Negative); Leukocyte Esterase Ur Negative LEU/UL (Negative); Nitrate Urine Negative (Negative); Non Pathogenic Casts 0-2; Protein Urine Trace mg/dL (Negative); RBC Urine 0-2 /hpf (0-2); Specific Grav Ur 1.018 (1.001-1.035); Squamous Epithelial Cell Urine Occasional /hpf (Few); Urobilinogen Urine 0.2 mg/dL (<2.0); WBC Urine 0-5 /hpf (0-3)
[2024-07-23 09:39] LABS: Alanine Aminotransferase 29 U/L (6-35); Albumin Level 4.5 g/dL (3.5-5.1); Alkaline Phosphatase 58 U/L (38-126); Anion Gap 12 mmol/L (4-12); Aspartate Amino Transferase 36 U/L (14-36); Bilirubin,Total 0.6 mg/dL (0.2-1.3); Blood Urea Nitrogen 14 mg/dL (7-17); Carbon Dioxide 23 mmol/L (22-30); Chloride 103 mmol/L (98-107); Estimated CRCL calculation 67 ml/min; Estimated Glomerular Filt Rate > 60; Glucose 114 mg/dL (65-110); Lipase 34 U/L (23-300); Potassium 3.8 mmol/L (3.4-5.0); Sodium 138 mmol/L (137-145)
[2024-07-23 09:49] LABS: Troponin I < 0.012 ng/mL (0.000-0.034)
[2024-07-23] MEDS: ONDANSETRON INJ 4 MG/2 ML VIAL IV PUSH (11:17)
[2024-07-23] MEDS: HYDROmorphone HCL INJ (*CRX) 1 MG/ML SYR 0.5 MG IV PUSH (11:17)
--- NOTE | 2024-07-23 12:17 | PM.IMHP ---
H&P: HPI History of Present Illness Date/Time: 07/23/24 12:17 Chief Complaint: Abdominal Pain Narrative: 69 y/o F presents here with abdominal pain with PMH of hypothyroidism. The patient presents here from home for further evaluation of abdominal pain. She reports onset of left lower abdominal pain around 8-9 p.m. She reports overnight that she tried a heating pad for her pain without relief. Then this morning and pain now effecting the whole abdomen and diffuse. Now also accompanied by nausea with 1 episode of emesis. She denies any significant abdominal surgery history. Last bowel movement at 0600 a.m. this morning, described small volume and formed. Initial VS at presentation: 97.5? F, HR 63, R 15, 151/86, 100% on RA. ED workup showed: No leukocytosis, no anemia, no significant electrolyte derangements, glucose 114, creatinine 0.66 and normal GFR, negative troponin, 2+ ketones. CXR showed no acute cardiopulmonary disease. CT abdomen/pelvis showed fluid-filled appendix dilated 1.6 cm raises concerns for acute appendicitis but without evidence wall thickening or periappendiceal inflammatory stranding to more specifically suggest this, large moderate proximal colonic stool, recent right 8-11 mm cystic lesions in the head and body of the pancreas. Review of Systems Review of Systems: All systems reviewed & are unremarkable except as noted in HPI and below PMFSH Past Medical History Medical History Mixed hyperlipidemia Hearing loss Chronic rhinitis Migraine headache Vaginal prolapse TMJ (temporomandibular joint disorder) History of colon polyps Osteoporosis Hypothyroidism Surgical History Surgical History Hx of tonsillectomy History of parathyroidectomy Family History Family History Sibling Malignant neoplasm of prostate Hypercholesteremia Mother Osteoporosis Grandparent Osteoporosis Other Family history of glaucoma Social History Social History Smoking status: Never smoker Second hand tobacco smoke exposure: No Alcohol intake: never Drinks per week: 0 Alcohol use details: RARE, 3 TIMES A YEAR Substance use: never Substance use type: does not use Do You Feel Safe in your Home?: Yes Lack of Transportation: No Lack of Food: Never True Current Housing: I Have Housing Concerned About Future Housing: No Difficulty Paying Gas/Electric Bills: No Difficulty Paying for Meds: No Currently Unemployed: No Education: Master's Degree or Higher Difficulty w/ Childcare or Family Care: No Living arrangements: with family Gender identity (if verbalized by the patient): Female Sexual Orientation (if Verbalized by the Patient): Straight or Heterosexual Spiritual care concerns: No Agree to blood products: Yes Meds Home Medications and Allergies Home Medications ?Medication ?Instructions ?Recorded ?Confirmed ?Type pimecrolimus 1 % topical cream 1 applic topical BID PRN ECZEMA 06/12/21 07/23/24 History calcium 600 mg (as 1 tablet PO DAILY 07/27/21 07/23/24 History carbonate)-vitamin D3 5 mcg (200 unit) tablet cetirizine 10 mg capsule (Zyrtec) 10 mg PO DAILY 07/27/21 07/23/24 History levothyroxine 50 mcg tablet 50 mcg PO DAILY 07/27/21 07/23/24 History multivitamin with minerals 1 tablet PO DAILY 07/27/21 07/23/24 History conjugated estrogens 0.625 mg/gram 0.625 mg vaginal 2XW #30 grams 12/11/21 07/23/24 Rx vaginal cream azelastine 137 mcg (0.1 %) nasal 1 spray intranasal Q12H #30 mL 12/31/23 07/23/24 Rx spray denosumab 60 mg/mL subcutaneous 60 mg subcut [id number] 12/31/23 07/23/24 History syringe (Prolia) sumatriptan succinate 100 mg tablet See Rx Instructions PO .COMPLEX #9 12/31/23 07/23/24 Rx tabs riboflavin (vitamin B2) 50 mg 50 mg PO DAILY 01/22/24 07/23/24 History tablet turmeric root extract 500 mg 500 mg PO DAILY 01/22/24 07/23/24 History capsule Allergies Allergy/AdvReac Type Severity Reaction Status Date / Time latex Allergy Mild Unknown Verified 07/23/24 08:44 prednisone AdvReac Mild Other Verified 07/23/24 08:44 amoxicillin AdvReac Unknown Diarrhea Verified 07/23/24 08:44 Vital Signs Vital Signs - 24 hr 07/23/24 08:32 07/23/24 08:44 07/23/24 08:46 Temperature 97.5 F L Pulse Rate 63 63 60 Respiratory Rate 15 16 18 Blood Pressure 151/86 H 151/86 H 139/83 Pulse Oximetry 100 99 100 Oxygen Delivery Room Air 07/23/24 09:01 07/23/24 09:16 07/23/24 09:18 Temperature Pulse Rate 64 66 64 Respiratory Rate 13 21 H 28 H Blood Pressure 143/86 H 130/95 H 125/78 Pulse Oximetry 99 100 100 Oxygen Delivery 07/23/24 09:19 07/23/24 09:31 07/23/24 09:51 Temperature Pulse Rate 67 58 L 61 Respiratory Rate 17 13 13 Blood Pressure 135/88 140/84 Pulse Oximetry 100 100 100 Oxygen Delivery 07/23/24 10:15 07/23/24 10:30 07/23/24 10:46 Temperature Pulse Rate 72 68 68 Respiratory Rate 15 17 17 Blood Pressure 139/83 Pulse Oximetry 99 99 99 Oxygen Delivery 07/23/24 10:47 07/23/24 11:00 Temperature Pulse Rate 80 74 Respiratory Rate 16 12 Blood Pressure 136/83 Pulse Oximetry 99 100 Oxygen Delivery Exam Const: General: comfortable and no acute distress Other: , female, well appearing HENMT: Face/Nose/Sinus: Normal nares present Mouth: Yes moist mucous membranes Eyes: General: appearance normal, both eyes and all related structures Sclera: sclerae normal Pupils: Equal, round and reactive pupils present EOM: EOMs intact bilaterally Resp: Effort & Inspection: normal respiratory effort Auscultation: clear to auscultation bilaterally Cardio: Rate: regular rate Rhythm: regular rhythm Other: S1-S2 present without murmur, rub, ectopy GI: Other: Abdomen soft, nondistended, nontender. Normoactive bowel sounds in all quadrants. Skin: General skin exam: normal color and no rashes or lesions noted Wounds: no wounds Neuro: Speech: normal speech Motor exam (neuro): 5/5 motor strength present throughout Sensory Exam: normal sensation Other: A&O x4 Extrem: General: normal to inspection Psych: Mental Status: mental status grossly normal Affect: normal affect Other: Good insight and judgment, pleasant H&P: Results Labs Labs: Short CBC 07/23/24 Range/Units 09:13 WBC 9.1 (4.5-10.0) K/mm3 Hgb 15.0 (12.0-15.0) g/dL Hct 45.6 (37.0-47.0) % Plt Count 270 (150-375) k/mm3 BMP 07/23/24 09:13 Sodium 138 Potassium 3.8 Chloride 103 Carbon Dioxide 23 BUN 14 Creatinine 0.66 L Glucose 114 H Calcium 9.0 Cardiac Enzymes 07/23/24 Range/Units 09:13 Troponin I < 0.012 (0.000-0.034) ng/mL Liver Function 07/23/24 Range/Units 09:13 Total Bilirubin 0.6 (0.2-1.3) mg/dL AST 36 (14-36) U/L ALT 29 (6-35) U/L Alkaline Phosphatase 58 (38-126) U/L Albumin 4.5 (3.5-5.1) g/dL Urine 07/23/24 Range/Units 09:13 Urine Color Dark yellow (Yellow) Urine Appearance Clear (Clear) Urine pH 7.0 (5.0-9.0) Ur Specific [place] 1.018 (1.001-1.035) Urine Protein Trace (Negative) mg/dL Urine Glucose (UA) Negative (Negative) mg/dL Assessment and Plan Assessment and plan (1) Appendicitis: Qualifiers: Acute appendicitis type: with generalized peritonitis Appendicitis abscess presence: without abscess Appendicitis gangrene presence: without gangrene Appendicitis perforation presence: without perforation Appendicitis type: acute appendicitis Qualified Code(s): K35.200 - Acute appendicitis with generalized peritonitis, without perforation or abscess Code(s): K37 - Unspecified appendicitis Status: Suspected Assessment and Plan: - CT abd/pelvis: 1. Fluid-filled appendix dilated to 1.6 cm which raises suspicion for acute appendicitis but without evident wall thickening or periappendiceal inflammatory stranding to more specifically suggest this. 2. Large moderate proximal colonic stool with additional thickened material in the distal ileum suggestive of constipation. 3. 3 separate 8-11 mm cystic lesions in the head and body of the pancreas. The differential diagnosis includes pseudocyst, intraductal papillary mucinous neoplasm (IPMN), mucinous cystic neoplasm (MCN), and the less common serous cystadenoma and neuroendocrine tumor. Correlate for history of pancreatitis and consider 1 year follow-up pre and postcontrast MRI. - WBC 9.1 - did not meet SIRS criteria, lactic 1.0 - general surgery consulted - analgesics prn - IV fluids - clear liquid diet - start Ertapenem on 07/23 (2) Acute constipation: Code(s): K59.00 - Constipation, unspecified Status: Acute Assessment and Plan: - see CT above - IV fluids - start docusate bid (3) Hypothyroidism: Qualifiers: Hypothyroidism type: unspecified Qualified Code(s): E03.9 - Hypothyroidism, unspecified Code(s): E03.9 - Hypothyroidism, unspecified Status: Chronic Assessment and Plan: - continue home medications Plan Diet: clear liquid GI Prophylaxis: No current indication DVT Prophylaxis: SCDs Lines: Peripheral Code Status: Full code Quality VTE Prophylaxis VTE prophylaxis: mechanical ordered Hospitalist MIPS Advance Care Plan I have confirmed that the patient's Advanced Care Plan is present, code status is documented, or surrogate decision maker is listed in patient medical record.: Yes Medication Reconciliation I have utilized all available resources to obtain, update and review the patients current medications (includes all prescriptions, OTC, herbals, cannabis, and nutritional supplements).: Yes
[2024-07-23] MEDS: ERTAPENEM 1 GM/NS 50 ML 1 GM/50 ML BAG IVPB (12:46)
[2024-07-23] MEDS: SODIUM CHLORIDE 0.9% IV 1,000 ML 125 ML IV CONT (12:49)
--- NOTE | 2024-07-23 15:53 | ADMGEN ---
This patient, Vilma Mckenzie, was admitted to 3 [facility] Surg Room 319-01. Patient/family oriented to hospital policies and general routines including ID bracelet, bed and alarms, visiting hours, pain management, procedures, bathroom and other care routines, personal items, smoking policy, room service/diet, and visiting hours. Information on how to activate the Rapid Response Team has been discussed. Patient/Family are encouraged to report perceived risks to care and to ask questions if they do not understand what they are told or what they should do.
--- NOTE | 2024-07-23 19:21 | PM.CNGS ---
Assessment and Plan Assessment and plan (1) Abdominal pain: Qualifiers: Abdominal location: generalized Qualified Code(s): R10.84 - Generalized abdominal pain Code(s): R10.9 - Unspecified abdominal pain Status: Acute Assessment and Plan: Pain much better but process tank tender in the right lower quadrant. Will recheck exam and labs again in the morning. Monitor any recurrence of her abdominal pain. May need to repeat her CT scan as well. (2) Abnormal CT scan, gastrointestinal tract: Code(s): R93.3 - Abnormal findings on diagnostic imaging of other parts of digestive tract Status: Acute Assessment and Plan: Dilated appendix at 1.6 cm but no periappendiceal inflammatory changes. As above, may need to repeat CT scan at some point unless decision made to proceed with appendectomy. (3) Acute constipation: Code(s): K59.00 - Constipation, unspecified Status: Acute Assessment and Plan: Retained stool noted on CT scan patient tells me that her bowel habits wax and wane between constipation and then sometimes some loose stools. She eats more fiber when she has small pellets of stool and that seems to improve the situation. She did have a colonoscopy last January which showed 3 tubular adenoma polyps in the area of the hepatic flexure but was otherwise negative. History of Present Illness Consult details Consult date: 07/23/24 Reason for consult: abdominal pain Requesting physician: Lita Portillo MD Narrative: Patient is a 69-year-old woman who came to the emergency room today after having experienced severe abdominal pain starting early this morning. The pain began of the left side of the abdomen but then moved across and became diffuse. By the time she came to the emergency room the pain seemed to be somewhat in the right lower quadrant. The she had also had some nausea and vomiting. In the emergency room, she was afebrile and had normal vital signs. Her white blood cell count was 9000. Her abdominal exam showed some right lower quadrant tenderness but no peritoneal signs. She had a CT scan of the abdomen and pelvis which showed a 1.6 cm, fluid-filled appendix but no periappendiceal inflammatory changes. She was also noted to have quite a bit of retained stool in the corresponding proximal ascending colon and even some solid matter in the distal ileum. She received an analgesics in the emergency room about 8-9 hours ago and has had very little pain since then. She also received a dose of ertapenem. She is had liquids throughout the day and tolerated these with no nausea. She feels much better than she did when she came to the emergency room and then she did last night. Review of Systems Review of Systems: All systems reviewed & are unremarkable except as noted in HPI and below (HPI) [facility] Past Medical History Medical History Mixed hyperlipidemia Hearing loss Chronic rhinitis Migraine headache Vaginal prolapse TMJ (temporomandibular joint disorder) History of colon polyps Osteoporosis Hypothyroidism Surgical History Surgical History Hx of tonsillectomy History of parathyroidectomy Family History Family History Sibling Malignant neoplasm of prostate Hypercholesteremia Mother Osteoporosis Grandparent Osteoporosis Other Family history of glaucoma Social History Social History Smoking status: Never smoker Second hand tobacco smoke exposure: No Alcohol intake: never Drinks per week: 0 Alcohol use details: RARE, 3 TIMES A YEAR Substance use: never Substance use type: does not use Do You Feel Safe in your Home?: Yes Lack of Transportation: No Lack of Food: Never True Current Housing: I Have Housing Concerned About Future Housing: No Difficulty Paying Gas/Electric Bills: No Difficulty Paying for Meds: No Currently Unemployed: No Education: Master's Degree or Higher Difficulty w/ Childcare or Family Care: No Living arrangements: with family Gender identity (if verbalized by the patient): Female Sexual Orientation (if Verbalized by the Patient): Straight or Heterosexual Spiritual care concerns: No Agree to blood products: Yes Meds Home Medications and Allergies Home Medications ?Medication ?Instructions ?Recorded ?Confirmed ?Type pimecrolimus 1 % topical cream 1 applic topical BID PRN ECZEMA 06/12/21 07/23/24 History calcium 600 mg (as 1 tablet PO DAILY 07/27/21 07/23/24 History carbonate)-vitamin D3 5 mcg (200 unit) tablet cetirizine 10 mg capsule (Zyrtec) 10 mg PO DAILY 07/27/21 07/23/24 History levothyroxine 50 mcg tablet 50 mcg PO DAILY 07/27/21 07/23/24 History multivitamin with minerals 1 tablet PO DAILY 07/27/21 07/23/24 History conjugated estrogens 0.625 mg/gram 0.625 mg vaginal 2XW #30 grams 12/11/21 07/23/24 Rx vaginal cream azelastine 137 mcg (0.1 %) nasal 1 spray intranasal Q12H #30 mL 12/31/23 07/23/24 Rx spray denosumab 60 mg/mL subcutaneous 60 mg subcut [id number] 12/31/23 07/23/24 History syringe (Prolia) sumatriptan succinate 100 mg tablet See Rx Instructions PO .COMPLEX #9 12/31/23 07/23/24 Rx tabs riboflavin (vitamin B2) 50 mg 50 mg PO DAILY 01/22/24 07/23/24 History tablet turmeric root extract 500 mg 500 mg PO DAILY 01/22/24 07/23/24 History capsule Allergies Allergy/AdvReac Type Severity Reaction Status Date / Time latex Allergy Mild Unknown Verified 07/23/24 08:44 prednisone AdvReac Mild Other Verified 07/23/24 08:44 amoxicillin AdvReac Unknown Diarrhea Verified 07/23/24 08:44 Vital Signs Vital Signs - 24 hr 07/23/24 08:32 07/23/24 08:44 07/23/24 08:46 Temperature 36.4 C L Pulse Rate 63 63 60 Respiratory Rate 15 16 18 Blood Pressure 151/86 H 151/86 H 139/83 Pulse Oximetry 100 99 100 Oxygen Delivery Room Air 07/23/24 09:01 07/23/24 09:16 07/23/24 09:18 Temperature Pulse Rate 64 66 64 Respiratory Rate 13 21 H 28 H Blood Pressure 143/86 H 130/95 H 125/78 Pulse Oximetry 99 100 100 Oxygen Delivery 07/23/24 09:19 07/23/24 09:31 07/23/24 09:51 Temperature Pulse Rate 67 58 L 61 Respiratory Rate 17 13 13 Blood Pressure 135/88 140/84 Pulse Oximetry 100 100 100 Oxygen Delivery 07/23/24 10:15 07/23/24 10:30 07/23/24 10:46 Temperature Pulse Rate 72 68 68 Respiratory Rate 15 17 17 Blood Pressure 139/83 Pulse Oximetry 99 99 99 Oxygen Delivery 07/23/24 10:47 07/23/24 11:00 07/23/24 11:22 Temperature Pulse Rate 80 74 80 Respiratory Rate 16 12 20 Blood Pressure 136/83 147/100 H Pulse Oximetry 99 100 100 Oxygen Delivery 07/23/24 11:31 07/23/24 12:16 07/23/24 12:45 Temperature Pulse Rate 75 71 77 Respiratory Rate 18 14 14 Blood Pressure 122/76 119/75 Pulse Oximetry 100 100 100 Oxygen Delivery 07/23/24 13:46 07/23/24 15:45 Temperature 36.4 C Pulse Rate 77 Respiratory Rate 16 Blood Pressure 149/83 H Pulse Oximetry 100 Oxygen Delivery Room Air Exam Const: General: comfortable, no acute distress, alert and awake HENMT: Head: normocephalic and atraumatic Mouth: Yes Normal oral and palatal mucosa present Eyes: Conjunctivae: conjunctivae normal Pupils: Equal, round and reactive pupils present EOM: EOMs intact bilaterally Neck: Neck: normal visual inspection, no lymphadenopathy and nontender Resp: Effort & Inspection: normal respiratory effort Auscultation: clear to auscultation bilaterally Cardio: Rate: regular rate Rhythm: regular rhythm Heart sounds: no gallops, no murmurs and no rubs GI: Inspection: non-distended, scaphoid and no scars GI Palp: Yes Soft to palpation, Yes Tenderness to palpation present (GI) (Right lower quadrant), No Guarding due to palpation present (GI), No Hepatomegaly present, No Splenomegaly present and No Palpable mass present Skin: Lesions: no lesions Rashes: no rashes Neuro: General: no focal motor deficits and CN's II-XI intact bilaterally Cranial nerves: Yes Equal, round and reactive pupils present, Yes Bilaterally intact EOM present, Yes facial symmetry and Yes Midline tongue present Speech: normal speech Motor exam (neuro): 5/5 motor strength present throughout and Motor abnormalities not present Extrem: General: no clubbing, cyanosis or edema and edema Psych: Affect: normal affect Thought process: Normal thought process present Insight: Good insight present (Psych) Results Labs 07/23/24 09:13 07/23/24 09:13 Labs: Abnormal lab results 07/23/24 Range/Units 09:13 Neut % (Auto) 86.5 H (45.5-73.1) % Lymph % (Auto) 8.9 L (18.3-44.2) % Lymph # (Auto) 0.81 L (0.9-3.2) K/mm3 Absolute Neuts (auto) 7.8 H (1.3-6.7) K/mm3 Creatinine 0.66 L (0.7-1.0) mg/dL Glucose 114 H (65-110) mg/dL Urine Ketones 2+ H (Negative) mg/dL Diabetes panel 07/23/24 Range/Units 09:13 Sodium 138 (137-145) mmol/L Potassium 3.8 (3.4-5.0) mmol/L Chloride 103 (98-107) mmol/L Carbon Dioxide 23 (22-30) mmol/L BUN 14 (7-17) mg/dL Creatinine 0.66 L (0.7-1.0) mg/dL Glucose 114 H (65-110) mg/dL Calcium 9.0 (8.4-10.2) mg/dL AST 36 (14-36) U/L ALT 29 (6-35) U/L Alkaline Phosphatase 58 (38-126) U/L Total Protein 7.0 (6.3-8.2) g/dL Albumin 4.5 (3.5-5.1) g/dL Calcium panel 07/23/24 Range/Units 09:13 Calcium 9.0 (8.4-10.2) mg/dL Albumin 4.5 (3.5-5.1) g/dL Pituitary panel 07/23/24 Range/Units 09:13 Sodium 138 (137-145) mmol/L Potassium 3.8 (3.4-5.0) mmol/L Chloride 103 (98-107) mmol/L Carbon Dioxide 23 (22-30) mmol/L BUN 14 (7-17) mg/dL Creatinine 0.66 L (0.7-1.0) mg/dL Glucose 114 H (65-110) mg/dL Calcium 9.0 (8.4-10.2) mg/dL Adrenal panel 07/23/24 Range/Units 09:13 Sodium 138 (137-145) mmol/L Potassium 3.8 (3.4-5.0) mmol/L Chloride 103 (98-107) mmol/L Carbon Dioxide 23 (22-30) mmol/L BUN 14 (7-17) mg/dL Creatinine 0.66 L (0.7-1.0) mg/dL Glucose 114 H (65-110) mg/dL Calcium 9.0 (8.4-10.2) mg/dL Total Bilirubin 0.6 (0.2-1.3) mg/dL AST 36 (14-36) U/L ALT 29 (6-35) U/L Alkaline Phosphatase 58 (38-126) U/L Total Protein 7.0 (6.3-8.2) g/dL Albumin 4.5 (3.5-5.1) g/dL All other labs normal. Imaging Abdomen CT scan report/results: report reviewed and image reviewed CT scan - pelvis: report reviewed and image reviewed
[2024-07-24] MEDS: SODIUM CHLORIDE 0.9% IV 1,000 ML 100 ML IV CONT ×2 (00:30→09:52)
[2024-07-24] MEDS: LEVOTHYROXINE SODIUM 50 MCG TABLET PO (05:41)
[2024-07-24 06:00] VITALS: BP 121/78; PULSE 73; RESP 18; TEMP 36.8; O2SAT 100
[2024-07-24 06:30] LABS: Basophils Percent Auto 0.8 % (0.2-1.2); Eosinophils Absolute Auto 0.1 K/mm3 (0-0.3); Eosinophils Percent Auto 1.1 % (0-4.4); Hematocrit 42.3 % (37.0-47.0); Immature Granulocyte Absolute 0.01 K/mm3 (0.00-0.031); Immature Granulocyte Percent A 0.2 % (0-0.5); Lymphocytes Percent Auto 28.7 % (18.3-44.2); Mean Corpuscular HGB Conc 33.1 g/dl (32-36); Mean Corpuscular Volume 90.6 fl (80-100); Mean Platelet Volume 9.8 fl (7.4-10.4); Monocytes Absolute Auto 0.5 K/mm3 (0.1-0.6); Monocytes Percent Auto 9.6 % (2.6-8.5); Neutrophils Absolute Auto 3.1 K/mm3 (1.3-6.7); Neutrophils Percent Auto 59.6 % (45.5-73.1); Platelet Count Result 240 k/mm3 (150-375); Red Blood Count 4.67 M/mm3 (4.2-5.4); Red Cell Distribution Width 13.6 % (11.5-14.5); White Blood Count 5.2 K/mm3 (4.5-10.0)
[2024-07-24 06:38] LABS: Alanine Aminotransferase 23 U/L (6-35); Albumin Level 3.7 g/dL (3.5-5.1); Alkaline Phosphatase 49 U/L (38-126); Anion Gap 8 mmol/L (4-12); Aspartate Amino Transferase 30 U/L (14-36); Bilirubin,Total 0.7 mg/dL (0.2-1.3); Blood Urea Nitrogen 7 mg/dL (7-17); CRP 0.8 mg/dL (<1.0); Calcium 7.8 mg/dL (8.4-10.2); Carbon Dioxide 22 mmol/L (22-30); Chloride 110 mmol/L (98-107); Estimated CRCL calculation 58 ml/min; Estimated Glomerular Filt Rate > 60; Glucose 87 mg/dL (65-110); Potassium 3.8 mmol/L (3.4-5.0); Sodium 140 mmol/L (137-145)
[2024-07-24 08:00] VITALS: PULSE 71; RESP 16; O2SAT 99
[2024-07-24] MEDS: ERTAPENEM 1 GM/NS 50 ML 1 GM/50 ML BAG IVPB (09:48)
--- NOTE | 2024-07-24 10:50 | PM.IMPN ---
Progress Note: A&P Assessment and Plan (1) Appendicitis: Qualifiers: Appendicitis type: acute appendicitis Acute appendicitis type: with generalized peritonitis Appendicitis gangrene presence: without gangrene Appendicitis perforation presence: without perforation Appendicitis abscess presence: without abscess Qualified Code(s): K35.200 - Acute appendicitis with generalized peritonitis, without perforation or abscess Code(s): K37 - Unspecified appendicitis Status: Suspected Assessment and Plan: - CT abd/pelvis: 1. Fluid-filled appendix dilated to 1.6 cm which raises suspicion for acute appendicitis but without evident wall thickening or periappendiceal inflammatory stranding to more specifically suggest this. 2. Large moderate proximal colonic stool with additional thickened material in the distal ileum suggestive of constipation. 3. 3 separate 8-11 mm cystic lesions in the head and body of the pancreas. The differential diagnosis includes pseudocyst, intraductal papillary mucinous neoplasm (IPMN), mucinous cystic neoplasm (MCN), and the less common serous cystadenoma and neuroendocrine tumor. Correlate for history of pancreatitis and consider 1 year follow-up pre and postcontrast MRI. - WBC 9.1 - did not meet SIRS criteria, lactic 1.0 - general surgery consulted - analgesics prn - IV fluids - clear liquid diet - start Ertapenem on 07/23 - surgery following (2) Acute constipation: Code(s): K59.00 - Constipation, unspecified Status: Acute Assessment and Plan: - see CT above - IV fluids - start docusate bid (3) Hypothyroidism: Qualifiers: Hypothyroidism type: unspecified Qualified Code(s): E03.9 - Hypothyroidism, unspecified Code(s): E03.9 - Hypothyroidism, unspecified Status: Chronic Assessment and Plan: - continue home medications (4) Abdominal pain: Qualifiers: Abdominal location: generalized Qualified Code(s): R10.84 - Generalized abdominal pain Code(s): R10.9 - Unspecified abdominal pain Status: Acute Assessment and Plan: Surgery was consulted jess reviewed: Will recheck exam and labs again in the morning. Monitor any recurrence of her abdominal pain. May need to repeat her CT scan as well Plan Diet: clear liquid GI Prophylaxis: No current indication DVT Prophylaxis: SCDs Lines: Peripheral Code Status: Full code Subjective Date/time seen: 07/24/24 10:50 Interval history: 69 y/o F presents here with abdominal pain with PMH of hypothyroidism. Initial VS at presentation: 97.5? F, HR 63, R 15, 151/86, 100% on RA. ED workup showed: No leukocytosis, no anemia, no significant electrolyte derangements, glucose 114, creatinine 0.66 and normal GFR, negative troponin, 2+ ketones. CXR showed no acute cardiopulmonary disease. CT abdomen/pelvis showed fluid-filled appendix dilated 1.6 cm raises concerns for acute appendicitis but without evidence wall thickening or periappendiceal inflammatory stranding to more specifically suggest this, large moderate proximal colonic stool, recent right 8-11 mm cystic lesions in the head and body of the pancreas. Surgery was consulted, DR Cortez saw pt 07/23 at 1900. Review of Systems Review of Systems: All systems reviewed & are unremarkable except as noted in HPI and below Exam Narrative: normal Const: General: comfortable and no acute distress Other: , female, well appearing HENMT: Face/Nose/Sinus: Normal nares present Mouth: Yes moist mucous membranes Eyes: General: appearance normal, both eyes and all related structures Sclera: sclerae normal Pupils: Equal, round and reactive pupils present EOM: EOMs intact bilaterally Resp: Effort & Inspection: normal respiratory effort Auscultation: clear to auscultation bilaterally Cardio: Rate: regular rate Rhythm: regular rhythm Other: S1-S2 present without murmur, rub, ectopy GI: Other: Abdomen soft, nondistended, nontender. Normoactive bowel sounds in all quadrants. Skin: General skin exam: normal color and no rashes or lesions noted Wounds: no wounds Neuro: Cranial nerves: Yes Equal, round and reactive pupils present Speech: normal speech Motor exam (neuro): 5/5 motor strength present throughout Sensory Exam: normal sensation Other: A&O x4 Extrem: General: normal to inspection Psych: Mental Status: mental status grossly normal Affect: normal affect Other: Good insight and judgment, pleasant Objective Data Vital Signs Vital Signs: Vital Signs - 24 hr 07/23/24 11:00 07/23/24 11:22 07/23/24 11:31 Temperature Pulse Rate 74 80 75 Respiratory Rate 12 20 18 Blood Pressure 147/100 H 122/76 Pulse Oximetry 100 100 100 Oxygen Delivery 07/23/24 12:16 07/23/24 12:45 07/23/24 13:46 Temperature 97.6 F Pulse Rate 71 77 77 Respiratory Rate 14 14 16 Blood Pressure 119/75 149/83 H Pulse Oximetry 100 100 100 Oxygen Delivery 07/23/24 15:45 07/23/24 22:00 07/24/24 06:00 Temperature 97.2 F L 98.3 F Pulse Rate 72 73 Respiratory Rate 18 18 Blood Pressure 127/72 121/78 Pulse Oximetry 100 100 Oxygen Delivery Room Air Intake/Output Intake/Output: Intake & Output 07/21/24 07/22/24 07/23/24 07/24/24 23:59 23:59 23:59 23:59 Intake Total 2785.4 1101.3 Balance 2785.4 1101.3 Meds/Results Medications: Active Medications Generic Name Dose Route Start Last Admin Trade Name Freq PRN Reason Stop Dose Admin Acetaminophen 650 mg 07/23/24 12:44 Acetaminophen 325 Mg Tablet PO Q6H PRN Mild Pain (1-3) or Fever Hydrocodone Bitart/Acetaminophen 1 tab 07/23/24 12:44 Hydrocodone/Acetaminophen (*Crx) 5-325 Mg Tablet PO Q6H PRN Pain Rated 4-6 Docusate Sodium 100 mg 07/23/24 21:00 Docusate Sodium 100 Mg Capsule PO Q12HR NAOMI Sodium Chloride 1,000 mls @ 100 mls/hr 07/23/24 12:05 07/24/24 09:52 Normal Saline Iv IV CONT 100 mls/hr .Q10H NAOMI Administration Ertapenem 1 gm in 50 mls @ 100 mls/hr 07/24/24 09:00 07/24/24 09:48 Invanz 1 Gm/Ns 50 Ml IVPB 100 mls/hr Q24H NAOMI Administration Levothyroxine Sodium 50 mcg 07/24/24 06:30 07/24/24 05:41 Levothyroxine Sodium 50 Mcg Tablet PO 50 mcg DAILY@0630 NAOMI Administration Miscellaneous Information 1 each 07/23/24 00:01 Pimecrolimus 1% Cream Is Out Of Stock, Can Patient Bring From Home? XX 08/22/24 00:00 CLARIFY NAOMI Morphine Sulfate 2 mg 07/23/24 12:44 Morphine Sulfate (*Crx) 2 Mg/Ml Inj IV PUSH Q4H PRN Pain Rated 7-10 Ondansetron HCl 4 mg 07/23/24 12:05 Ondansetron Inj 4 Mg/2 Ml Vial IV PUSH Q4H PRN Nausea Pimecrolimus 1 applic 07/23/24 19:04 Pimecrolimus 1% 30 Gm Cream TOPICAL BID PRN Eczema Radiology Results: ITS Impressions Chest X-Ray 07/23/24 09:48 IMPRESSION: 1. No acute cardiopulmonary disease. Abdomen/Pelvis CT 07/23/24 10:06 IMPRESSION: 1. Fluid-filled appendix dilated to 1.6 cm which raises suspicion for acute appendicitis but without evident wall thickening or periappendiceal inflammatory stranding to more specifically suggest this. 2. Large moderate proximal colonic stool with additional thickened material in the distal ileum suggestive of constipation. 2. 3 separate 8-11 mm cystic lesions in the head and body of the pancreas. The differential diagnosis includes pseudocyst, intraductal papillary mucinous neoplasm (IPMN), mucinous cystic neoplasm (MCN), and the less common serous cystadenoma and neuroendocrine tumor. Correlate for history of pancreatitis and consider 1 year follow-up pre and postcontrast MRI. Labs Labs: Laboratory Results - last 24 hr 07/24/24 06:17 WBC 5.2 RBC 4.67 Hgb 14.0 Hct 42.3 MCV 90.6 MCH 30.0 MCHC 33.1 RDW 13.6 Plt Count 240 MPV 9.8 Immature Gran % (Auto) 0.2 Neut % (Auto) 59.6 Lymph % (Auto) 28.7 [place] % (Auto) 9.6 H Eos % (Auto) 1.1 Baso % (Auto) 0.8 Lymph # (Auto) 1.50 [place] # (Auto) 0.5 Eos # (Auto) 0.1 Baso # (Auto) 0.0 Abs Immat Gran (auto) 0.01 Absolute Neuts (auto) 3.1 Absolute Nucleated RBC 0.000 Nucleated RBC % 0.0 Sodium 140 Potassium 3.8 Chloride 110 H Carbon Dioxide 22 Anion Gap 8 BUN 7 D Creatinine 0.59 L Estim Creat Clear Calc 58 Estimated GFR > 60 Glucose 87 Calcium 7.8 L Total Bilirubin 0.7 AST 30 ALT 23 Alkaline Phosphatase 49 C-Reactive Protein 0.8 Total Protein 6.0 L Albumin 3.7 Quality VTE Prophylaxis VTE prophylaxis: mechanical ordered
--- NOTE | 2024-07-24 12:39 | PM.DS ---
DS: Admitting Diagnosis Discharge Date 07/24 Admitting Diagnosis abd pain DS: Discharge Diagnosis Discharge Diagnosis (1) Appendicitis: Qualifiers: Acute appendicitis type: with generalized peritonitis Appendicitis abscess presence: without abscess Appendicitis gangrene presence: without gangrene Appendicitis perforation presence: without perforation Appendicitis type: acute appendicitis Qualified Code(s): K35.200 - Acute appendicitis with generalized peritonitis, without perforation or abscess Code(s): K37 - Unspecified appendicitis Status: Suspected (2) Acute constipation: Code(s): K59.00 - Constipation, unspecified Status: Acute Assessment and Plan: - see CT above - IV fluids - start docusate bid (3) Hypothyroidism: Qualifiers: Hypothyroidism type: unspecified Qualified Code(s): E03.9 - Hypothyroidism, unspecified Code(s): E03.9 - Hypothyroidism, unspecified Status: Chronic Assessment and Plan: - continue home medications (4) Abdominal pain: Qualifiers: Abdominal location: generalized Qualified Code(s): R10.84 - Generalized abdominal pain Code(s): R10.9 - Unspecified abdominal pain Status: Acute DS: Summary Hospital Course Hospital Course: 69-year-old woman admitted for severe abdominal pain started yesterday. Pain started to left side of the abdomen but then moved across and became diffuse. By the time she came to the emergency room the pain seemed to be somewhat in the right lower quadrant. The she had also had some nausea and vomiting. She was afebrile, her VS were wnl. WBC- 9000. Her exam showed some RLQ tenderness but no peritoneal signs. Surgery was consulted. Dr Cortez saw and evaluated her on 07/23 in te evening. # abd pain r/o appendicitis - CT abd/pelvis: 1. Fluid-filled appendix dilated to 1.6 cm which raises suspicion for acute appendicitis but without evident wall thickening or periappendiceal inflammatory stranding to more specifically suggest this. 2. Large moderate proximal colonic stool with additional thickened material in the distal ileum suggestive of constipation. 3. 3 separate 8-11 mm cystic lesions in the head and body of the pancreas. The differential diagnosis includes pseudocyst, intraductal papillary mucinous neoplasm (IPMN), mucinous cystic neoplasm (MCN), and the less common serous cystadenoma and neuroendocrine tumor. Correlate for history of pancreatitis and consider 1 year follow-up pre and postcontrast MRI. - WBC 9.1 - did not meet SIRS criteria, lactic 1.0 - analgesics prn - IV fluids - clear liquid diet - start Ertapenem on 07/23 - surgery following: Dilated appendix at 1.6 cm but no periappendiceal inflammatory changes. As above, may need to repeat CT scan at some point unless decision made to proceed with appendectomy. 07/24- this morning her pain is pretty much gone. She ate breakfast. No n/v. Dr Cortez told pt that he would be ok with discharge but a close f/u on friday and home with antibiotics- he would send rx for her. # acute constipation apparently not a new issues- she had been battling with it She eats more fiber when she starts having issues with BMs - need to add fiber daily to diet -had colonoscopy last January: 3 tubular adenoma polyps in the area of the hepatic flexure but otherwise unremarkable Status at Discharge Functional status at discharge: independent ambulation Overall status at discharge: patient is progressing back to baseline Time Spent with Patient Time attestation: Total time spent providing and/or coordinating discharge services: Time spent: Greater than 30 minutes Exam Narrative: normal Const: General: comfortable and no acute distress Other: , female, well appearing HENMT: Face/Nose/Sinus: Normal nares present Mouth: Yes moist mucous membranes Eyes: General: appearance normal, both eyes and all related structures Sclera: sclerae normal Pupils: Equal, round and reactive pupils present EOM: EOMs intact bilaterally Resp: Effort & Inspection: normal respiratory effort Auscultation: clear to auscultation bilaterally Cardio: Rate: regular rate Rhythm: regular rhythm Other: S1-S2 present without murmur, rub, ectopy GI: Other: Abdomen soft, nondistended, nontender. Normoactive bowel sounds in all quadrants. Skin: General skin exam: normal color and no rashes or lesions noted Wounds: no wounds Neuro: Cranial nerves: Yes Equal, round and reactive pupils present Speech: normal speech Motor exam (neuro): 5/5 motor strength present throughout Sensory Exam: normal sensation Other: A&O x4 Extrem: General: normal to inspection Psych: Mental Status: mental status grossly normal Affect: normal affect Other: Good insight and judgment, pleasant DS: Data Data Completed and Pending Completed studies during hospitalization: chest xray, abd/pelvis ct Labs on day of discharge: Labs from last 24 hours 07/24/24 06:17 WBC 5.2 RBC 4.67 Hgb 14.0 Hct 42.3 MCV 90.6 MCH 30.0 MCHC 33.1 RDW 13.6 Plt Count 240 MPV 9.8 Immature Gran % (Auto) 0.2 Neut % (Auto) 59.6 Lymph % (Auto) 28.7 [place] % (Auto) 9.6 H Eos % (Auto) 1.1 Baso % (Auto) 0.8 Lymph # (Auto) 1.50 [place] # (Auto) 0.5 Eos # (Auto) 0.1 Baso # (Auto) 0.0 Abs Immat Gran (auto) 0.01 Absolute Neuts (auto) 3.1 Absolute Nucleated RBC 0.000 Nucleated RBC % 0.0 Sodium 140 Potassium 3.8 Chloride 110 H Carbon Dioxide 22 Anion Gap 8 BUN 7 D Creatinine 0.59 L Estim Creat Clear Calc 58 Estimated GFR > 60 Glucose 87 Calcium 7.8 L Total Bilirubin 0.7 AST 30 ALT 23 Alkaline Phosphatase 49 C-Reactive Protein 0.8 Total Protein 6.0 L Albumin 3.7 Discharge Plan Discharge Attending physician on discharge: Jamie Stewart Consulting providers: Joe Cortez Discharging Clinician: Nette Mcbride Patient Disposition: Home, Self-Care Activity: may shower Diet: as tolerated and high fiber Discharge Instructions: please f/u with Dr Cortez. He is sending you home with antibiotics- please start taking it as directed. If abd pain return or you develop any other new or worrisome symptoms, please come back to ED. Start taking metamucil daily and use OTC meds to regulate your BMs. When ou use metamucil, please make sure you drink enough water. Patient Instructions: Antibiotic Form Patient Language: Tuvaluan Stand Alone Forms: General Discharge Information Follow-up/Referrals: Mercedez Morillo MD [Primary Care Provider] - 2 Weeks Joe Cortez MD [Physician] - 1 Week (f/u when instructed per DR Cortez) Discharge Medications: Continued conjugated estrogens 0.625 mg/gram cream 0.625 mg vaginal 2XW Qty: 30 0RF Prolia 60 mg/mL syringe 60 mg subcut [id number] azelastine 137 mcg (0.1 %) spray,non-aerosol 1 spray intranasal Q12H Qty: 30 11RF Rx Instructions: administer into each nostril sumatriptan succinate 100 mg tablet See Rx Instructions PO .COMPLEX Qty: 9 3RF Rx Instructions: take 1 tab at onset of headache; if no relief, may repeat 1 tab after at least 2 hrs; max = 2 tabs/24 hrs PO pimecrolimus 1 % cream 1 applic topical BID PRN (Reason: ECZEMA) calcium carbonate-vitamin D3 600 mg-5 mcg (200 unit) Tablet 1 tablet PO DAILY levothyroxine 50 mcg tablet 50 mcg PO DAILY multivitamin with minerals Tablet 1 tablet PO DAILY Zyrtec 10 mg Capsule 10 mg PO DAILY riboflavin (vitamin B2) 50 mg Tablet 50 mg PO DAILY turmeric root extract 500 mg Capsule 500 mg PO DAILY Date of admission: 07/23/24 12:05 Primary Care Provider: Mercedez Morillo Admitting Provider: Frank Rome Attending physician on admission: Frank Rome Condition: Stable Quality VTE Prophylaxis VTE prophylaxis: mechanical ordered Hospitalist MIPS Heart Failure (Exclusion) Patient has history of Heart Transplant or Left Ventricular Assistive Device?: No IF YES, STOP HERE Heart Failure (Qualifier) Patient has current or prior documentation of LVEF less than or equal to 40%, or mod/servere depressed LVSF?: No IF NO, STOP HERE
[2024-07-24 14:00] VITALS: BP 117/73; PULSE 71; RESP 16; TEMP 36.4; O2SAT 99
--- NOTE | 2024-07-24 14:59 | PM.PNGS ---
Progress Note: A&P Assessment and Plan (1) Abnormal CT scan, gastrointestinal tract: Code(s): R93.3 - Abnormal findings on diagnostic imaging of other parts of digestive tract Status: Acute Assessment and Plan: Dilated appendix but no surrounding inflammatory changes, retained stool cecum (2) Abdominal pain: Qualifiers: Abdominal location: generalized Qualified Code(s): R10.84 - Generalized abdominal pain Code(s): R10.9 - Unspecified abdominal pain Status: Acute Assessment and Plan: Pain is gone today. Patient tolerated liquids well. Will discharge and have her see me in the office later this week. Subjective Subjective Date/Time Seen: 07/24/24 14:59 Patient reports: feels better, pain is less, tolerating liquids well and afebrile Review of Systems Review of Systems: All systems reviewed & are unremarkable except as noted in HPI and below (HPI) Exam Const: General: comfortable and no acute distress Orientation/consciousness: patient oriented x3 GI: Inspection: normal to inspection and non-distended GI Palp: Yes Soft to palpation, No Tenderness to palpation present (GI), No Guarding due to palpation present (GI) and No Rebound tenderness present Auscultation: normal bowel sounds Neuro: General: patient oriented x3 and no focal motor deficits Extrem: General: no calf tenderness and no edema Psych: Affect: normal affect Insight: Good insight present (Psych) Judgement: Good judgement present (Psych) Objective Data Vital Signs Vital Signs: Vital Signs - 24 hr 07/23/24 15:45 07/23/24 22:00 07/24/24 06:00 Temperature 36.2 C L 36.8 C Pulse Rate 72 73 Respiratory Rate 18 18 Blood Pressure 127/72 121/78 Pulse Oximetry 100 100 Oxygen Delivery Room Air 07/24/24 14:00 Temperature 36.4 C L Pulse Rate 71 Respiratory Rate 16 Blood Pressure 117/73 Pulse Oximetry 99 Oxygen Delivery Intake/Output Intake/Output: Intake & Output 07/21/24 07/22/24 07/23/24 07/24/24 23:59 23:59 23:59 23:59 Intake Total 2785.4 1281.3 Balance 2785.4 1281.3 Meds/Results Medications: Active Medications Generic Name Dose Route Start Last Admin Trade Name Freq PRN Reason Stop Dose Admin Acetaminophen 650 mg 07/23/24 12:44 Acetaminophen 325 Mg Tablet PO Q6H PRN Mild Pain (1-3) or Fever Hydrocodone Bitart/Acetaminophen 1 tab 07/23/24 12:44 Hydrocodone/Acetaminophen (*Crx) 5-325 Mg Tablet PO Q6H PRN Pain Rated 4-6 Docusate Sodium 100 mg 07/23/24 21:00 Docusate Sodium 100 Mg Capsule PO Q12HR NAOMI Sodium Chloride 1,000 mls @ 100 mls/hr 07/23/24 12:05 07/24/24 09:52 Normal Saline Iv IV CONT 100 mls/hr .Q10H NAOMI Administration Ertapenem 1 gm in 50 mls @ 100 mls/hr 07/24/24 09:00 07/24/24 09:48 Invanz 1 Gm/Ns 50 Ml IVPB 100 mls/hr Q24H NAOMI Administration Levothyroxine Sodium 50 mcg 07/24/24 06:30 07/24/24 05:41 Levothyroxine Sodium 50 Mcg Tablet PO 50 mcg DAILY@0630 NAOMI Administration Miscellaneous Information 1 each 07/23/24 00:01 Pimecrolimus 1% Cream Is Out Of Stock, Can Patient Bring From Home? XX 08/22/24 00:00 CLARIFY NAOMI Morphine Sulfate 2 mg 07/23/24 12:44 Morphine Sulfate (*Crx) 2 Mg/Ml Inj IV PUSH Q4H PRN Pain Rated 7-10 Ondansetron HCl 4 mg 07/23/24 12:05 Ondansetron Inj 4 Mg/2 Ml Vial IV PUSH Q4H PRN Nausea Pimecrolimus 1 applic 07/23/24 19:04 Pimecrolimus 1% 30 Gm Cream TOPICAL BID PRN Eczema Radiology Results: ITS Impressions Chest X-Ray 07/23/24 09:48 IMPRESSION: 1. No acute cardiopulmonary disease. Abdomen/Pelvis CT 07/23/24 10:06 IMPRESSION: 1. Fluid-filled appendix dilated to 1.6 cm which raises suspicion for acute appendicitis but without evident wall thickening or periappendiceal inflammatory stranding to more specifically suggest this. 2. Large moderate proximal colonic stool with additional thickened material in the distal ileum suggestive of constipation. 2. 3 separate 8-11 mm cystic lesions in the head and body of the pancreas. The differential diagnosis includes pseudocyst, intraductal papillary mucinous neoplasm (IPMN), mucinous cystic neoplasm (MCN), and the less common serous cystadenoma and neuroendocrine tumor. Correlate for history of pancreatitis and consider 1 year follow-up pre and postcontrast MRI. Labs Labs: Laboratory Results - last 24 hr 07/24/24 06:17 WBC 5.2 RBC 4.67 Hgb 14.0 Hct 42.3 MCV 90.6 MCH 30.0 MCHC 33.1 RDW 13.6 Plt Count 240 MPV 9.8 Immature Gran % (Auto) 0.2 Neut % (Auto) 59.6 Lymph % (Auto) 28.7 [place] % (Auto) 9.6 H Eos % (Auto) 1.1 Baso % (Auto) 0.8 Lymph # (Auto) 1.50 [place] # (Auto) 0.5 Eos # (Auto) 0.1 Baso # (Auto) 0.0 Abs Immat Gran (auto) 0.01 Absolute Neuts (auto) 3.1 Absolute Nucleated RBC 0.000 Nucleated RBC % 0.0 Sodium 140 Potassium 3.8 Chloride 110 H Carbon Dioxide 22 Anion Gap 8 BUN 7 D Creatinine 0.59 L Estim Creat Clear Calc 58 Estimated GFR > 60 Glucose 87 Calcium 7.8 L Total Bilirubin 0.7 AST 30 ALT 23 Alkaline Phosphatase 49 C-Reactive Protein 0.8 Total Protein 6.0 L Albumin 3.7
== END 2024-07-24 15:40 | disposition home or self-care (01) ==
LOC: ANHED 12:08 → ANH3MEDSUR 07-24 12:55
PROVIDERS: Student in an Organized Health Care Education/Training Program; Admitting Provider Family Medicine; Emergency Provider Emergency Medicine; PCP Family Medicine; Visit Provider Internal Medicine
DX: R10.84 Generalized abdominal pain (principal); R93.3 Abnormal findings on diagnostic imaging of other parts of digestive tract; K59.00 Constipation, unspecified; E03.9 Hypothyroidism, unspecified; E78.2 Mixed hyperlipidemia; G43.909 Migraine, unspecified, not intractable, without status migrainosus; J31.0 Chronic rhinitis; H91.90 Unspecified hearing loss, unspecified ear; M26.609 Unspecified temporomandibular joint disorder, unspecified side; M81.0 Age-related osteoporosis without current pathological fracture; N81.10 Cystocele, unspecified; Z79.899 Other long term (current) drug therapy; Z86.018 Personal history of other benign neoplasm
CPT/HCPCS: 36415; 71046; 74177; 80053; 81001; 83605; 83690; 84484; 85025; 86140; 96361; 96365; 96375; 99285; A9270; G0378; J1171; J1335; J2405; J7030; Q9967

== ENCOUNTER 2024-08-03 08:29 | Outpatient (CLI) | payer MEDICARE, SELFPAY ==
--- OUTSIDE RECORDS SUMMARY | 2024-08-03 08:53 | XMS_ITS | Encounter Summary ---
Author Organization [facility] Address [address] [place] [address] Care Team Providers Care Fishing Manager Name Role Phone Unavailable Primary Care Provider Unavailabl e Encounter Details Date Type Department Care Team (Late st Contact Info) Description 11/25/2019 Lab Requisition [facility] [address] [place] [id number] Venkatesh Woodson MD [address] [place] [id number] Social History Tobacco Use Types Packs/Day Years Used Date Smoking Tobacco: Never Assessed Sex and Gender Information Value Date Recorded Sex Assigned at Not on file Gender Identity Not on file Sexual Orientation Not on file documented as of this encounter Plan of Treatment Not on file documented as of this encounter Procedures Procedure Name Priority Date/Time Associated Diagnosis Comments DERMATOPATHOLOGY Routine 11/23/2019 12:0 0 AM CDT documented in this encounter Results * DERMATOPATHOLOGY (11/23/2019 12:00 AM CDT) Case Report Dermatopathology Report Case: [id number] Authorizing Provider: Venkatesh Woodson MD Collected: 11/23/2019 12:00 AM Ordering Location: [facility] Received: 11/25/2019 10:45 AM Pathologist: Nicole Gerardo MD Specimen: Skin, right upper buttock 0 1:12 PM CDT DERMATOPATHOLOGY LABORATORY Final Diagnosis Specimen A. 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 Path # [id number] 0 1:12 PM CDT DERMATOPATHOLOGY LABORATORY Gross Description Specimen A: Received is one formalin filled container labeled with the patient's name and designated right upper buttock. The specimen consists of a shave biopsy measuring [id number]. Jar 0. 0 1:12 PM CDT DERMATOPATHOLOGY LABORATORY Microscopic Description Specimen A. SKIN, right upper buttock: This is a junctional nevus. There is melanin pigment in the stratum corneum. There is architectural disorder characterized by a lentiginous proliferation of melanocytes between irregular nests of cells along the dermal-epidermal junction. There is underlying fibroplasia of the papillary dermis. (Junctional Kenny's Nevus or Junctional Dysplastic Nevus) 0 1:12 PM CDT DERMATOPATHOLOGY LABORATORY Disclaimer An external and internal positive and negative controls are appropriate for the histochemical, immunohistochemical and immunofluorescence stain(s) in this case (if any), except where stated explicitly. The performance characteristics of the stain(s) cited in this report were developed and its performance characteristic determined by the Dermatopathology Laboratory at [facility], directed by Dr. Virgie Martinez. These tests need not be, and therefore are not, approved by the [place] Food and Drug Administration. The tests are used for clinical purposes. Billing Codes Specimen Charges Stain Charges 11870 1 0 1:12 PM CDT DERMATOPATHOLOGY LABORATORY Embedded Images 0 1:12 PM CDT DERMATOPATHOLOGY LABORATORY Pathology/Cytolog y TISSUE SPECIMEN FROM SKIN / Unknown 11/23/2019 11/25/2019 10:45 AM CDT Venkatesh Woodson MD LAB - PATHOLOGY/CYTO LOGY ORDERABLES DERMATOPATHOLOGY LABORATORY [facility] - Department of Dermatology [employer] [place] [address], [facility] [phone] documented in this encounter Visit Diagnoses Not on filedocumented in this encounter
--- OUTSIDE RECORDS SUMMARY | 2024-08-03 08:53 | XMS_ITS | Clinical Summary ---
Author Organization [facility] Address [address] [place] [address] Phone Care Team Providers Care Relations Specialist Name Role Phone Mercedez Morillo MD Primary Care Provider [phone] Allergies No known active allergies Medications ibandronate (BONIVA) 150 mg tablet 02/28/20 13 Active ELIDEL 1 % Cream 04/03/20 13 Active FINACEA 15 % Gel 03/01/20 13 Active EVISTA 60 mg tablet 03/29/20 13 Active Eflornithine (VANIQA) 13.9 % Cream Apply to affected area. Active Cetirizine (ZYRTEC) 10 mg Capsule Take by mouth. Activ e GLUC HCL/CSANA/GLY- AM-GLY,MX/C (GLUCOSAM-COND ROITIN-GA GLYCN-C ORAL) Take by mouth. A ctive Insulin [place], Disposable, (Ira Pen Needle) 32 gauge x 5/32 Needle Use once daily with Forteo 100 Each 2 2 3:04 PM CDT 02/13/20 21 Active Insulin [place], Disposable, (Unifine Pentips Plus) 31 gauge x 5/16 Needle USE ONCE DAILY WITH FORTEO 100 Each 2 11/09/19 22 Active azithromycin (ZITHROMAX) 250 mg tablet Take 2 tablets by mouth on day 1, then take 1 tablet by mouth daily on days 2-5 6 Tablet 2 6:39 PM CDT 12/12/19 22 Active azelastine (ASTEPRO) 0.15 % (205.5 mcg) nasal spray Administer 2 Sprays in each nostril daily. 30 mL 12/12/19 22 Active mupirocin (BACTROBAN) 2 % Ointment APPLY TO THE AFFECTED AREA(S) TWICE DAILY. 22 Gram 2 6:21 PM CDT 01/22/20 22 Active teriparatide (Forteo) 20 mcg/dose (600mcg/2.4mL) pen Inject 20 mcg by subcutaneous injection daily. 7.2 mL 1 2 11:40 AM SUPERINTENDENT AMMUNITION STORAGE 03/07/20 22 Active azelastine (ASTELIN) 137 mcg/actuation nasal spray ADMINISTER 1 SPRAY IN EACH NOSTRIL EVERY 12 HOURS. 30 mL 11 3 11:39 AM CDT 03/26/20 22 Active levothyroxine 50 mcg tablet Take 1 Tablet (50 mcg) by mouth daily. 30 Tablet 7 3 2:04 PM SUPERINTENDENT AMMUNITION STORAGE 04/16/20 22 Active levothyroxine 50 mcg tablet Take 1 tablet (50 mcg total) by mouth credit charge authorizer before breakfast 90 Tablet 3 3 12:54 PM SUPERINTENDENT AMMUNITION STORAGE 07/18/19 23 Active teriparatide (Forteo) 20 mcg/dose (600mcg/2.4mL) pen Inject 0.08 mL (20 mcg total) under the skin credit charge authorizer before breakfast 7.2 mL 3 3 11:11 AM CDT 07/18/19 23 Active Insulin [place], Disposable, (Pen Needle) 32 gauge x 5/32 Needle Use once daily for forteo injection 100 Each 3 3 11:11 AM CDT 11/19/19 23 Active pimecrolimus (Elidel) 1 % Cream Apply to rash on trunk twice daily as directed 60 Gram 4 3 3:02 PM CDT 12/03/19 23 Active Azelaic Acid (Finacea) 15 % Gel Apply to face twice daily. 50 Gram 10 3 3:02 PM CDT 12/03/19 23 Active azelastine (ASTELIN) 137 mcg/actuation nasal spray Administer 1 spray in both nostrils every 12 hours 30 mL 11 4 12:14 PM CDT 04/27/20 23 Active SUMAtriptan (IMITREX) 100 mg tablet Take 1 tab at onset of headache; if no relief, may repeat 1 tab after at least 2 hrs; max = 2 tabs/24 hrs PO 9 Tablet 3 3 12:54 PM SUPERINTENDENT AMMUNITION STORAGE 04/27/20 23 Active SUMAtriptan (IMITREX) 100 mg tablet take 1 tab at onset of headache; if no relief, may repeat 1 tab after at least 2 hrs; max = 2 tabs/24 hrs PO 9 Tablet 3 04/28/20 23 Active SUMAtriptan (IMITREX) 100 mg tablet Take one tablet by mouth at onset of headache; if no relief may repeat one tablet after at least 2 hours. maximum of 2 tablets in 24 hours. 9 Tablet 3 04/28/20 23 Active estradioL (ESTRACE) 0.01% (0.1 mg/g) vaginal cream Use 1/4th of an applicator (1 gram) twice weekly. 42.5 Gram 3 4 11:14 AM SUPERINTENDENT AMMUNITION STORAGE 10/09/19 24 Active azelastine (ASTELIN) 137 mcg/actuation nasal spray [place] 1 [place] in each nostril every 12 hours. 30 mL 11 4 11:14 AM SUPERINTENDENT AMMUNITION STORAGE 12/31/19 24 Active SUMAtriptan (IMITREX) 100 mg tablet Take 1 Tablet (100 mg) by mouth as needed at onest of headache. If no relief, may repeat with another tablet after at least 2 hours. Max doseage: 2 tablets/24 hours 9 Tablet 3 4 11:36 AM CDT 12/31/19 24 Active levothyroxine 50 mcg tablet Take 1 Tablet (50 mcg) by mouth daily in the morning BEFORE BREAKFAST. 90 Tablet 3 5 12:54 PM SUPERINTENDENT AMMUNITION STORAGE 07/05/19 25 Active psyllium (Hydrocil) Powder 1 tbsp orally daily; mix into at least 8 oz of water or juice before administering 300 Gram 07/25/19 25 Active levothyroxine 50 mcg tablet Take 1 tablet (50 mcg total) by mouth credit charge authorizer before breakfast 90 Tablet 3 4 11:04 AM SUPERINTENDENT AMMUNITION STORAGE 07/08/19 24 025 Discontinu ed(Reorder ) levoFLOXacin (LEVAQUIN) 750 mg tablet Take 1 Tablet (750 mg) by mouth daily for 5 days. 5 Tablet 5 5:01 PM SUPERINTENDENT AMMUNITION STORAGE 07/25/19 25 025 metroNIDAZOLE (FLAGYL) 500 mg tablet Take 1 Tablet (500 mg) by mouth 3 times daily for 5 days. 14 Tablet 5 5:01 PM SUPERINTENDENT AMMUNITION STORAGE 07/25/19 25 025 Active Problems Patient Care Coordination No te Formatting of this note migh t be different from the original. Primary Care: Mercedez Morillo MD Referring Provider: Mercedez Morillo MD [address] [id number] Other: Problem Noted Date Diagnosed Date Breast mass, right 04/06/2013 Overview (04/06/2013): Looks benign, stable, plan continued 6 month follow-up Encounters Date Type Department Care Team Description 07/31/2024 External Device Data [facility] Provider, Abstract 07/30/2024 External Device Data [facility] Provider, Abstract 07/28/2024 External Device Data [facility] Provider, Abstract 07/28/2024 External Device Data [facility] Provider, Abstract 07/13/2024 External Device Data [facility] Provider, Abstract 06/16/2024 External Device Data [facility] Provider, Abstract 06/16/2024 External Device Data [facility] Provider, Abstract 06/09/2024 External Device Data [facility] Provider, Abstract from Last 3 Months Family History Medical History Relation Name Comments Heart Disease Father Stroke Maternal Grandfather Cancer Maternal Uncle Bone Heart Disease Paternal Grandfather Heart Disease Paternal Grandmother Relation Name Status Comments Father Maternal Grandfather Maternal Uncle Paternal Grandfather Paternal Grandmother Social History Tobacco Use Types Packs/Day Years Used Date Smoking Tobacco: Never Alcohol Use Standard Drinks/Week Comments Not Asked 0 (1 standard drink = 0.6 oz pur e alcohol) Comments No Sex and Gender Information Value Date Recorded Sex Assigned at Not on file Legal Sex Female 1:54 PM SUPERINTENDENT AMMUNITION STORAGE Gender Identity Not on file Sexual Orientation Not on file Last Filed Vital Signs Vital Sign Reading Time Taken Comments Blood Pressure 108/61 04/06/2013 3:03 PM SUPERINTENDENT AMMUNITION STORAGE Pulse 76 04/06/2013 3:03 PM SUPERINTENDENT AMMUNITION STORAGE Temperature - - Respiratory Rate - - Oxygen Saturation - - Inhaled Oxygen Concentration - - Weight 61.7 kg (136 lb) 04/06/2013 3:03 PM SUPERINTENDENT AMMUNITION STORAGE Height 172.7 cm (5' 8 ) 04/06/2013 3:03 PM SUPERINTENDENT AMMUNITION STORAGE Body Mass Index 20.68 04/06/2013 3:03 PM SUPERINTENDENT AMMUNITION STORAGE Plan of Treatment Health Maintenance Due Date Last Done Comments DTAP/TDAP/TD VACCINES (1 - Tdap) 1974 COLORECTAL SCREENING 2000 Colorectal Cancer Screening 2000 FIT-DNA Q 3 years 2000 FIT/FOBT Q 1 year 2000 Flex Sig/CT Colonography Q 5 years 2000 PNEUMOCOCCAL VACCINE 50+ YEA RS (1 of 1 - PCV) 2005 ZOSTER VACCINE (1 of 2) 2005 BREAST CANCER SCREENING 04/06/2014 04/06/20 13, 11/27/2012, 10/14/2011, Additional history exists OSTEOPOROSIS SCREENING 2020 INFLUENZA VACCINE (#1) 2023 02/25/2021 RSV VACCINE (60+ or ) (1 - 1-dose 75+ series) 2030 Procedures Procedure Name Priority Date/Time Associated Diagnosis Comments MAMMO DIAGNOSTIC UNI RIGHT W OR WO CAD Routine 04/06/2013 2:47 PM SUPERINTENDENT AMMUNITION STORAGE Breast mass from Last 3 Months or Most Recently Relevant to Health Maintenance Results * MAMMO DIGITAL DIAG UNI RIGHT (04/06/2013 2:47 PM SUPERINTENDENT AMMUNITION STORAGE) Anatomical Region Laterality Modality Breast Right Mammography 04/06/2013 2:46 PM SUPERINTENDENT AMMUNITION STORAGE Narrative 04/07/2013 7:32 PM SUPERINTENDENT AMMUNITION STORAGE RIGHT BREAST FULL FIELD DIGITAL DIAGNOSTIC MAMMOGRAM WITH COMPUTER-AIDED DETECTION AND RIGHT BREAST ULTRASOUND. 04/06/13 HISTORY: Fibrocystic changes Comparison is made with previous studies dated November 2012, September 2011 and May 2010. Breast composition: Heterogeneously dense which lowers the sensitivity of mammography. Findings: Numerous calcifications are identified within the right breast. These are predominately within the upper outer quadrant. Compared with studies dating back to 2010, these are all essentially stable. No new dominant masses, areas of asymmetry, or suspicious clustered calcifications are identified within the right breast. CAD was utilized. A right breast ultrasound was performed. This demonstrates hypoechoic parallel smoothly marginated mass in the upper-outer quadrant of the right breast which measures 9 x 3 mm in size. Several other cysts are seen. When compared with the ultrasound from November 2012 from the outside institution, this mass is stable. Overall assessment: BI-RADS category 2. Benign findings. RECOMMENDATION: Annual mammography is recommended. The patient due for next bilateral mammogram in November 2013. Dictated from Deb Morin Procedure Note Starla Link MD - 04/07/2013 RIGHT BREAST FULL FIELD DIGITAL DIAGNOSTIC MAMMOGRAM WITH COMPUTER-AIDED DETECTION AND RIGHT BREAST ULTRASOUND. 04/06/13 HISTORY: Fibrocystic changes Comparison is made with previous studies dated November 2012, September 2011 and May 2010. Breast composition: Heterogeneously dense which lowers the sensitivity of mammography. Findings: Numerous calcifications are identified within the right breast. These are predominately within the upper outer quadrant. Compared with studies dating back to 2010, these are all essentially stable. No new dominant masses, areas of asymmetry, or suspicious clustered calcifications are identified within the right breast. CAD was utilized. A right breast ultrasound was performed. This demonstrates hypoechoic parallel smoothly marginated mass in the upper-outer quadrant of the right breast which measures 9 x 3 mm in size. Several other cysts are seen. When compared with the ultrasound from November 2012 from the outside institution, this mass is stable. Overall assessment: BI-RADS category 2. Benign findings. RECOMMENDATION: Annual mammography is recommended. The patient due for next bilateral mammogram in November 2013. Dictated from Deb Morin Domonique Resendiz MD MAMMO ORDERABLES Final Result from Last 3 Months or Most Recently Relevant to Health Maintenance Insurance [employer] O OPEN ACCESS RX CLAUDIO PLANS (INTERNAL) [facility] RX AETNA Medicare Part D Care Teams Relations Specialist Relationship Specialty Start Date End Date Mercedez Morillo MD [address] [place] [id number] PCP - General Family Practice 04/06/13
--- OUTSIDE RECORDS SUMMARY | 2024-08-03 08:53 | XMS_ITS | Encounter Summary ---
Author Organization [facility] Address [address] [place] [address] Care Team Providers Care Welding Pantograph Operator Name Role Phone Mercedez Morillo MD Primary Care Provider [phone] Encounter Details Date Type Department Care Team (Late st Contact Info) Description 07/31/2024 External Device Data [facility] Provider, Abstract NO ADDRESS ON FILE Social History Tobacco Use Types Packs/Day Years Used Date Smoking Tobacco: Never Alcohol Use Standard Drinks/Week Comments Not Asked 0 (1 standard drink = 0.6 oz pur e alcohol) Comments No Sex and Gender Information Value Date Recorded Sex Assigned at Not on file Legal Sex Female 1:54 PM APRON CLEANER Gender Identity Not on file Sexual Orientation Not on file documented as of this encounter Plan of Treatment Not on file documented as of this encounter Visit Diagnoses Not on filedocumented in this encounter Care Teams Welding Pantograph Operator Relationship Specialty Start Date End Date Mercedez Morillo MD [address] [place] [address] PCP - General Family Practice 04/06/13 documented as of this encounter
--- OUTSIDE RECORDS SUMMARY | 2024-08-03 08:53 | XMS_ITS | Encounter Summary ---
Author Organization [facility] Address [address] [place] [address] Phone Care Team Providers Care Marketing Production Specialist Name Role Phone Mercedez Morillo MD Primary Care Provider [phone] Encounter Details Date Type Department Care Team (Late st Contact Info) Description 03/03/2023 [id number] [facility] 5th [place] [address] [place] [address] Robert Berry MD [address] [facility] [address] [place] [address] Social History Tobacco Use Types Packs/Day Years Used Date Smoking Tobacco: Never Smokeless Tobacco: Never Alcohol Use Standard Drinks/Week Comments Yes 0 (1 standard drink = 0.6 oz pur e alcohol) AUDIT-C Answer Date Recorded Q1: How often do you have a drink containing alc ohol? Monthly or less 11/25/2021 Q2: How many drinks containi ng alcohol do you have on a typical day when you are drinking? 1 or 2 11/25/2021 Q3: How often do you have si x or more drinks on one occasion? Never 11/25/2021 PHQ-2 Answer Date Recorded PHQ-2 Total Score (If total score is 3 or more points, staff should administer the PHQ-9) 0 08/29/2020 Comments No Sex and Gender Information Value Date Recorded Sex Assigned at Not on file Legal Sex Female 11:14 AM ASSISTANT FEDERAL PUBLIC DEFENDER Gender Identity Female 08/22/2020 9:50 AM CDT Sexual Orientation Straight 08/22/2020 9: 50 AM CDT documented as of this encounter Plan of Treatment Not on file documented as of this encounter Visit Diagnoses Not on filedocumented in this encounter Care Teams Marketing Production Specialist Relationship Specialty Start Date End Date Mercedez Morillo MD PCP - General 08/26/16 documented as of this encounter
--- OUTSIDE RECORDS SUMMARY | 2024-08-03 08:53 | XMS_ITS | Clinical Summary ---
Author Organization [facility] Address [address] [place] [address] Care Team Providers Care Director Dermatology Name Role Phone Unavailable Primary Care Provider Unavailabl e Source Comments [facility],non-owned Affiliates and Associated Physician Practices is amultiple site organization consisting of ambulatory clinics and hospital sitesin [place], [place], [place] and [place]. This disclosure is being madepursuant to the Care Everywhere program and may not contain all information available regarding this patient. Last updated 18.[facility] [employer] Social History Tobacco Use Types Packs/Day Years Used Date Smoking Tobacco: Never Assessed Sex and Gender Information Value Date Recorded Sex Assigned at Not on file Gender Identity Not on file Sexual Orientation Not on file Plan of Treatment Health Maintenance Due Date Last Done Comments BONE DENSITY TESTING 1955 COLOGUARD (AGES 45-75) - COL ON CA SCREENING 1955 COLON MONITORING 1955 COLONOSCOPY - COLON CA SCREENING 1955 CT COLONOGRAPHY - COLON CA SCREENING 1955 Colorectal Cancer Screening 1955 FIT - COLON CA SCREENING 1955 FLEX SIG - COLON CA SCREENING 1955 LIPID TESTING 1955 MAMMOGRAM 1955 HEPATITIS C SCREENING 05/10/1973 DTAP/TDAP/TD VACCINES (1 - Tdap) 1974 PNEUMOCOCCAL VACCINE 50+ (1 of 1 - PCV) 2005 ZOSTER VACCINE (1 of 2) 2005 COVID-19 VACCINE ( - 2023-2 5 season) 2024 INFLUENZA VACCINE (#1) 2024 DEPRESSION SCREENING 05/26/2024 MEDICARE AWV CALENDAR YEAR 2024 Respiratory Syncytial Virus (RSV) Vaccine Pt: or over 60 yrs (1 - 1-dose 75+ series) 2030 HEPATITIS B VACCINE Aged Out No longe r eligible based on patient's age to complete this topic HIB VACCINE Aged Out No longer eligi ble based on patient's age to complete this topic HPV VACCINE Aged Out No longer eligi ble based on patient's age to complete this topic MENINGOCOCCAL (Group B) VACCINE Aged Out No longer eligible based on patient's age to complete this topic MENINGOCOCCAL VACCINE Aged Out No adrian nalini eligible based on patient's age [place] [address]
--- OUTSIDE RECORDS SUMMARY | 2024-08-03 08:53 | XMS_ITS | Referral Summary ---
Author Organization [facility] Address [address] [facility] [place] [address] Care Team Providers Care Pickling Drum Operator Name Role Phone Unavailable Primary Care Provider Unavailabl e Source Comments [facility],non-owned Affiliates and Associated Physician Practices is amultiple site organization consisting of ambulatory clinics and hospital sitesin [place], [place]. This disclosure is being madepursuant to the Care Everywhere program and may not contain all information available regarding this patient. Last updated 18.[facility] [employer] Social History Tobacco Use Types Packs/Day Years Used Date Smoking Tobacco: Never Assessed Sex and Gender Information Value Date Recorded Sex Assigned at Not on file Gender Identity Not on file Sexual Orientation Not on file [place] [address]
--- OUTSIDE RECORDS SUMMARY | 2024-08-03 08:53 | XMS_ITS | Patient Health Summary ---
Author Organization [facility] Address [address] [facility] [place] [address] Care Team Providers Care Alarm Technician Name Role Phone Unavailable Primary Care Provider Unavailabl e Note from [facility],non-owned Affiliates and Associated Physician Practices is amultiple site organization consisting of ambulatory clinics and hospital sitesin [place], [place], [place]. This disclosure is being madepursuant to the Care Everywhere program and may not contain all information available regarding this patient. Last updated 18.[facility] Social History Tobacco Use Types Packs/Day Years Used Date Smoking Tobacco: Never Assessed Sex and Gender Information Value Date Recorded Sex Assigned at Not on file Gender Identity Not on file Sexual Orientation Not on file Procedures * DERMATOPATHOLOGY(Performed 11/23/2019) Results * DERMATOPATHOLOGY (11/23/2019 12:00 AM CDT) Case Report Dermatopathology Report Case: [id number] Authorizing Provider: Venkatesh Woodson MD Collected: 11/23/2019 12:00 AM Ordering Location: [facility] DermPath Lab Received: 11/25/2019 10:45 AM Pathologist: Nicole Gerardo MD Specimen: Skin, right upper buttock 0 1:12 PM CDT DERMATOPATHOLOGY LABORATORY Final Diagnosis Specimen A. 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 Path # [id number]. 0 1:12 PM CDT DERMATOPATHOLOGY LABORATORY Gross Description Specimen A: Received is one formalin filled container labeled with the patient's name and designated right upper buttock. The specimen consists of a shave biopsy measuring 6x4y4ic. Jar 0. 0 1:12 PM CDT DERMATOPATHOLOGY [...] characteristic determined by the Dermatopathology Laboratory at [facility], directed by Dr. Virgie Martinez. These tests need not be, and therefore are not, approved by the [place] Food and Drug Administration. The tests are used for clinical purposes. Billing Codes Specimen Charges Stain Charges 39258 1 0 1:12 PM CDT DERMATOPATHOLOGY LABORATORY Embedded Images 0 1:12 PM CDT DERMATOPATHOLOGY LABORATORY Pathology/Cytolog y TISSUE SPECIMEN FROM SKIN / Unknown 11/23/2019 11/25/2019 10:45 AM CDT Venkatesh Woodson MD LAB - PATHOLOGY/CYTO LOGY ORDERABLES Performing Organization Address City/State/[facility] Co de Phone Number DERMATOPATHOLOGY LABORATORY [facility] - Department of Dermatology [employer]/[address] [phone]
--- OUTSIDE RECORDS SUMMARY | 2024-08-03 08:53 | XMS_ITS | Encounter Summary ---
Author Organization [facility] Address [address] [place] [address] Care Team Providers Care Airborne And Air Delivery Specialist Name Role Phone Mercedez Morillo MD Primary Care Provider [phone] Encounter Details Date Type Department Care Team (Late st Contact Info) Description 07/16/2024 Results Follow-Up [facility] [id number] [place] [phone] [place] [id number] [place] [address] Social History Tobacco Use Types Packs/Day Years [...] on file Legal Sex Female 11:14 AM EXERCISE PHYSIOLOGIST CERTIFIED Gender Identity Female 08/22/2020 9:50 AM CDT Sexual Orientation Straight 08/22/2020 9: 50 AM CDT documented as of this encounter Plan of Treatment Not on file documented as of this encounter Visit Diagnoses Not on filedocumented in this encounter Care Teams Airborne And Air Delivery Specialist Relationship Specialty Start Date End Date Mercedez Morillo MD PCP - General 08/26/16 documented as of this encounter
--- OUTSIDE RECORDS SUMMARY | 2024-08-03 08:53 | XMS_ITS | Clinical Summary ---
Author Organization [facility] Address [address] [place] [id number] Care Team Providers Care Fork Operator Name Role Phone Mercedez Morillo MD Primary Care Provider [phone] Allergies Active Allergy Reactions Criticality Noted Date Comments Amoxicillin Poison Coco Extract Rash Medium 12/11/2022 Prednisone Agitation,Anxiety Low 12/25/2020 Medications azelaic acid (FINACEA) 15 % cream apply by topical route 2 times every day a thin layer to the affected area(s) 0 12/01/19 11 Active pimecrolimus (ELIDEL) 1 % cream apply by topical route 2 times every day a thin layer to the affected area(s) ; rub in gently and completely 0 0 05/04/20 13 Active calcium carbonate-ines min D3 (CALCIUM 600 WITH VITAMIN D3) 600 mg(1,500mg) -400 unit capsule 0 0 03/08/20 15 Active Additional Information Patient taking differently: 600 mg oral Daily, Reported on 07/13/2024 SUMAtriptan (IMITREX) 100 mg tablet Active turmeric (CURCUMIN MISC) Take by mouth daily 02/23/20 20 Active cetirizine 10 mg capsule Take 10 mg by mouth daily Active azelastine (ASTELIN) 137 mcg (0.1 %) nasal spray 02/16/20 22 Active riboflavin, vitamin B2, 400 mg tablet Take 400 mg by mouth daily 12/25/19 23 Active denosumab (PROLIA) 60 mg/mL syringe 04/08/20 23 Active estradioL (ESTRACE) 0.01 % (0.1 mg/gram) vaginal creamIndicatio ns:Vaginal atrophy Use 1/4th of an applicator (1 gram) twice weekly. 42.5 g 3 10/09/19 24 Active multivitamin (MULTI-DAY ORAL) Take by mouth Active levothyroxine (SYNTHROID) 50 mcg tablet Take 1 tablet (50 mcg total) by mouth ground support agent before breakfast 90 tablet 3 07/05/19 25 Active levothyroxine (SYNTHROID) 50 mcg tablet Take 1 tablet (50 mcg total) by mouth ground support agent before breakfast 90 tablet 3 07/08/19 24 025 Discontinued Active Problems Problem Noted Date Diagnosed Date Uterovaginal prolapse 01/30/2022 Assessment & Plan (10/09/2023 5:01 PM CDT): -currently managed with #3 Ring, she is happy with support and would like to continue with conservative management. -continue pessary self management, she leaves out nightly. -continue twice weekly VET -she will return in 12 months for pessary check Assessment & Plan (05/13/2022 5:21 PM ELEPHANT TAMER): -currently managed with #3 Ring -discussed trial of Gellhorn pessary to see if addressing apical support loss would provide improvement in subjective feeling of slower stream; she declines at this time -continue pessary self management, she leaves out nightly. -continue twice weekly VET -she will return in 6 months for pessary check Assessment & Plan (02/20/2022 2:59 PM CDT): -previously fit with a #2 Ring pessary that was upsized to a #3 Ring pessary to see if provides better symptomatic relief of slower urine stream in addition to relief of pressure/heaviness already achieved with #2. She was sent home with #2 Ring to go back to using, if desired. -she will call the office in 3-4 weeks to let us know if urinary stream improved -she was instructed on pessary self management and will remove nightly. -she will return in 3 months for pessary check Assessment & Plan (01/30/2022 1:02 PM CDT): -we reviewed management options and she would like to trial conservative management with a pessary -she was fit with a #2 Ring pessary that was comortable; we reviewed how to reinsert should it be expelled -will reassess at follow up if pessary support improves urinary stream -she will return in 2-4 weeks for pessary check Vaginal atrophy 01/30/2022 Assessment & Plan (10/09/2023 5:01 PM CDT): - continue twice weekly VET - she finds the cream messy and wasteful, she will check her insurance regarding use of Vagifem or Imvexxy and may call to have Rx changed Assessment & Plan (02/20/2022 2:56 PM CDT): - continue twice weekly VET - she finds the cream messy and wasteful, she will check her insurance regarding use of Vagifem or Imvexxy and may call to have Rx changed Assessment & Plan (01/30/2022 1:00 PM CDT): -continue twice weekly VET Pelvic floor dysfunction 01/30/2022 Assessment & Plan (02/20/2022 2:54 PM CDT): - continue home PFPT exercises Assessment & Plan (01/30/2022 1:00 PM CDT): -continue PFPT exercises Subclinical hypothyroidism 06/28/2021 Assessment & Plan (07/18/2022 4:16 PM ELEPHANT TAMER): Continue Levothyroxine 50 mcg daily Assessment & Plan (06/28/2021 12:28 PM ELEPHANT TAMER): With hypercholesterolemia Will start LT4 50 mcg daily, which can help to lower cholesterol Recheck TSH, FT4 in 3 m Vitamin D deficiency 06/28/2021 Assessment & Plan (07/08/2023 12:51 PM ELEPHANT TAMER): Chronic, well controlled UD 25 OH vit D levels Will adjust vit D dose if indicated Assessment & Plan (06/28/2021 12:30 PM ELEPHANT TAMER): Check vit D levels Adjust dose of vit D accordingly Family history of pituitary disease 09/02/2017 Osteoporosis 05/04/2013 Overview (08/29/2016): Osteoporosis Assessment & Plan (07/08/2023 12:50 PM ELEPHANT TAMER): Chronic , well controlled Prolia very 6 m Patient was advised to call me before next injection is due, so I can send the rx and the pt can come to the office to have the injection Risk of rebound fractures, if Prolia is discontinued was explained ' Weight bearing exercise Ca and vit D intake UD vit D and urine calcium Assessment & Plan (07/18/2022 4:18 PM ELEPHANT TAMER): Continue Forteo. Continue Ca and vit D After completing 2 years of Forteo, in December, will consider starting Prolia Assessment & Plan (06/28/2021 12:27 PM ELEPHANT TAMER): Continue Forteo Weight bearing exercise Calcium and vit D Will check 24 h urine calcium Assessment & Plan (08/29/2020 2:19 PM CDT): With worsening bone density Stop Evista Start Forteo Assessment & Plan (08/31/2019 10:06 AM CDT): Stop Boniva ( 1-2 year hiatus ) Continue Evista Weight bearing exercise Continue Ca and vit D Check labs in 2-3 months. Assessment & Plan (09/01/2018 10:32 AM CDT): Continue Ca and vit D intake Stop Boniva ( 2 year holiday period ) Continue Evista Consider repeat bone density in a year Assessment & Plan (09/02/2017 4:29 PM CDT): Continue Evista, Boniva Ca and Vit D intake discussed Daily walking and weight bearing exercise. 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 ) Vs secondary. Check PTH, serum Ca. Check 25 oh vit D Encounters Date Type Department Care Team Description 07/29/2024 Orders Only [facility] [address] [phone] Jaylan Matta MD Family history of pituitary disease (Primary Dx) 07/16/2024 Results Follow-Up [facility] [address], [place] [address] Jaylan Matta MD 07/13/2024 12:20 PM ELEPHANT TAMER Lab [address] [address] Lymphocytic thyroiditis; Vitamin D deficiency 07/13/2024 11:30 AM ELEPHANT TAMER Office Visit [facility] [address] [facility] [address] [place] [address] Jaylan Matta MD Lymphocytic thyroiditis (Primary Dx); Vitamin D deficiency 06/11/2024 Telephone [facility] [address] [facility] [address] [place] [address] Riddhi Moss RN 05/11/[address] [facility] [address] [facility] Medical Office Building [address] [place] [address] Robert Berry MD from Last 3 Months Surgical History Surgery Date Site/Laterality Comments TONSILLECTOMY Tonsillectomy PARATHYROIDECTOMY parathyroidectomy Medical History Medical History Date Comments History of multiple allergies Al lergies Hx Other Medical Headache, migra ine Hx Other Medical hyperparathyroi dism Hx Other Medical back pain Osteoporosis Osteoporosis Disorder of thyroid Thyroid dise ase Hx Other Medical poor circulatio n Hx Other Medical osteoarthritis Family History Medical History Relation Name Comments Coronary artery disease Brother Katerine nary artery disease; Coronary artery disease Father Katerine nary artery disease; /Coronary artery disease, premature; Osteoporosis Mother Osteoporosis; Mental illness Other 1 Family histor y of Mental illness; Stroke Other 2 Family history of Stroke; Arthritis Other 3 Family history of arthritis; Hip fracture Neg Hx Relation Name Status Comments Brother Father Mother Other 1 Other 2 Other 3 Social History Tobacco Use Types Packs/Day Years Used Date Smoking Tobacco: Never Smokeless Tobacco: Never Tobacco Cessation:Counseling Given: Not Answered Alcohol Use Standard Drinks/Week Comments Yes 0 [...] on file Legal Sex Female 11:14 AM ELEPHANT TAMER Gender Identity Female 08/22/2020 9:50 AM CDT Sexual Orientation Straight 08/22/2020 9: 50 AM CDT Obstetrics History Para Term AB IAB SAB Ectopic Multiple Livin g Live Births 2 2 Date Outcome GA Total Labor Labor/2nd/3rd Weight Sex Type Anes PTL Salima A1 A5 Name Clin Para Para Last Filed Vital Signs Vital Sign Reading Time Taken Comments Blood Pressure 110/66 07/13/2024 11:43 AM ELEPHANT TAMER Pulse 82 07/13/2024 11:43 AM ELEPHANT TAMER Temperature 36.2 C (97.1 F) 04/14/2024 11:12 AM ELEPHANT TAMER Respiratory Rate 20 07/13/2024 11:4 3 AM ELEPHANT TAMER Oxygen Saturation 100% 04/14/2024 11: 12 AM ELEPHANT TAMER Inhaled Oxygen Concentration - - Weight 64.3 kg (141 lb 12.8 oz) 025 11:43 AM ELEPHANT TAMER Height 170.2 cm (5' 7 ) 07/13/2024 11:4 3 AM ELEPHANT TAMER Body Mass Index 22.21 07/13/2024 11:43 AM ELEPHANT TAMER Plan of Treatment Health Maintenance Due Date Last Done Comments Breast Cancer Screening-Mammogram 1955 Colon Cancer Screening-Colonoscopy 1955 Fall Risk Assessment 1955 Hepatitis C Screening 1955 DTaP/Tdap/Td Vaccine (1 - Tdap) 1966 Hepatitis B Screening 1973 Pneumococcal vaccine 65+ (1 of 1 - PCV) 2005 Zoster Vaccine (1 of 2) 2005 Well Visit 65+ 2020 Depression Screening 08/29/2021 08/29/2020, 08/31/2019, 09/01/2018, Additional history exists Influenza Vaccine (#1) 2024 , 02/24/2019, 02/26/2018 Osteoporosis Screening-Bone Density Scan 03/03/2025 03/03/2023, 01/07/2022, 12/25/2020, Additional history exists Procedures Procedure Name Priority Date/Time Associated Diagnosis Comments VITAMIN D 25 HYDROXY Routine 07/13/2024 12:31 PM ELEPHANT TAMER Vitamin D deficiency TSH Routine 07/13/2024 12:31 PM ELEPHANT TAMER Lymphocytic thyroiditis T4, FREE Routine 07/13/2024 12:31 PM ELEPHANT TAMER Lymphocytic thyroiditis DEXA TBS AXIAL SKELETON BONE DENSITY 1 OR MORE SITES Schedule Routine, Read Routine (OP Routine) 03/03/2023 10:04 AM CDT Osteoporosis, unspecified osteoporosis type, unspecified pathological fracture presence from Last 3 Months or Most Recently Relevant to Health Maintenance Results * Vitamin D 25 hydroxy (07/13/2024 12:31 PM ELEPHANT TAMER) Vitamin D 25-OH 51 30 - 80 ng/mL Blood 07/13/2024 12:3 1 PM ELEPHANT TAMER 07/13/2024 5:04 PM ELEPHANT TAMER Jaylan Matta MD LAB BLOOD ORDERABLES Final Resul t Performing Organization Address [facility] Co de Phone Number DEE [address] [address] [employer] Time [place], [place] [id number] * TSH (07/13/2024 12:31 PM ELEPHANT TAMER) Pathologist [facility] Thyroid Stimulating Hormone 3.00 0.30 - 4.20 mcIUnit/mL Blood 07/13/2024 12:3 1 PM ELEPHANT TAMER 07/13/2024 5:04 PM ELEPHANT TAMER Jaylan Matta MD LAB BLOOD ORDERABLES Final Resul t Performing Organization Address City/[facility] Co de Phone Number DEE [phone] [address] [facility] [employer] [address] * T4, free (07/13/2024 12:31 PM ELEPHANT TAMER) Free T4 1.21 0.90 - 1.70 ng/dL Blood 07/13/2024 12:3 1 PM ELEPHANT TAMER 07/13/2024 5:04 PM ELEPHANT TAMER us Jaylan Matta MD LAB BLOOD ORDERABLES Final Resul t DEE LÓPEZ [address] [address] Department [place] [address] * Dexa TBS Axial Skeleton Bone Density 1 or more sites (03/03/2023 10:04 AM CDT) Anatomical Region Laterality Modality Wrist, Body N/A Radiographic Dora ging Narrative 03/03/2023 10:29 AM CDT Patient Name: Vilma Mckenzie Date of : 1955 Date of scan: 03/03/2023 Bone mineral density was performed on a HolomyLINGO Discovery Densitometer. Based on machine cross-calibration and precision studies the least significant changes of this densitometer is 0.024 g/cm2 at the spine, 0.020 g/cm2 at the total proximal femur, and 0.014g/cm2 at the forearm. HISTORY: This is a 67 y.o. postmenopausal female with a history of hyperparathyroidism (parathyroidectomy), osteoporosis, and thyroid disease. She reports that she has never smoked. She has never used smokeless tobacco. Currently on treatment with calcium, vitamin D, teriparatide (Forteo), and thyroid hormone and previously treated with ibandronate (Boniva) and raloxifene (Evista). INDICATIONS: Menopause status, treatment monitoring, and history of osteoporosis. FINDINGS: BONE MINERAL DENSITY OF THE LUMBAR SPINE Bone Mineral Density (BMD) of the lumbar spine was measured from L1-L4 and the average density was calculated to be 0.785 gm/cm2. This corresponds to a T-score (standard deviations from the mean of young adults) of -2.4. When compared to the previous study of 01/07/2022 there has been no significant changes in bone density. BONE MINERAL DENSITY OF THE PROXIMAL FEMUR Bone Mineral Density (BMD) of the left hip total was found to be 0.700 gm/cm2. This corresponds to a T-score standard deviations from the mean of young adults of -2.0. Femoral neck is 0.618 gm/cm2 with a T-score (standard deviations from the mean of young adults) of -2.1. When compared to the previous study of 01/07/2022 there has been a 0.056 gm/cm (8.7%) increase in bone density that is considered significant. SUMMARY: Bone mineral density shows evidence of low bone mass at the lumbar spine and proximal femur and moderately increased fracture risk (Osteopenia). There has been a significant increase in bone density since previous measurement. The lumbar spine Trabecular Bone Score is 1.307 which suggests partially degraded bone microarchitecture compared to the general population. Final decisions regarding diagnostic or therapeutic recommendations should include BMD, TBS, additional clinical risk factors as well the clinical context of the patient. Please see attached TBS results for further details. ADDITIONAL COMMENTS: Postmenopausal Women and Men Over 50: Diagnostic criteria: Osteoporosis: BMD at or below -2.5 T-score; Osteopenia (low bone mass): BMD between -1.0 and -2.5 T-score. If the patient has a history of a fragility fracture, a fracture that occurred with trauma equivalent to a fall from a standing position or less, then the diagnosis is osteoporosis regardless of bone density. The history and data sections of the bone mineral density scan were prepared by Mona Gonzalez) AMARILYS who is accredited by the International Society of Clinical Densitometry. The overall patient assessment and scan interpretation were performed by Robert Berry M.D. who is certified by the International Society of Clinical Densitometry. [id number] Robert Berry MD IMG DXA PROCEDURES Final Re sult from Last 3 Months or Most Recently Relevant to Health Maintenance Insurance [place] [address] [place] [address] [employer] Care Teams Fork Operator Relationship Specialty Start Date End Date Mercedez Morillo MD PCP - General 08/26/16
--- OUTSIDE RECORDS SUMMARY | 2024-08-03 08:53 | XMS_ITS | Referral Summary ---
Author Organization [address] [facility] Address [address] [place] [address] Care Team Providers Care Sign Artist Name Role Phone Mercedez Morillo MD Primary Care Provider [phone] Encounters Date Type Department Care Team Description 07/29/2024 Orders Only [facility] [address] [address] Jaylan Matta MD Family history of pituitary disease (Primary Dx) 07/16/2024 Results Follow-Up [facility] [address] [phone] Jaylan Matat MD 07/13/2024 12:20 PM SPEECH LANGUAGE PATHOLOGIST PRN Lab [address] [phone] Lymphocytic thyroiditis; Vitamin D deficiency 07/13/2024 11:30 AM SPEECH LANGUAGE PATHOLOGIST PRN Office Visit [facility] [address] [address] Jaylan Matta MD Lymphocytic thyroiditis (Primary Dx); Vitamin D deficiency 06/11/2024 Telephone [facility] at [address] [place] [phone] Riddhi Msos, STACY 05/11/2024 Telephone [facility] [address] [facility] Medical Office Building [address] [place] [address] Robert Berry MD from Last 3 Months Allergies Active Allergy Reactions Criticality Noted Date [...] 1 tablet (50 mcg total) by mouth supervisor fireworks assembly before breakfast 90 tablet 3 07/05/19 25 Active levothyroxine (SYNTHROID) 50 mcg tablet Take 1 tablet (50 mcg total) by mouth supervisor fireworks assembly before breakfast 90 tablet 3 07/08/19 24 [...] check Assessment & Plan (05/13/2022 5:21 PM SPEECH LANGUAGE PATHOLOGIST PRN): -currently managed with #3 Ring -discussed trial [...] 06/28/2021 Assessment & Plan (07/18/2022 4:16 PM SPEECH LANGUAGE PATHOLOGIST PRN): Continue Levothyroxine 50 mcg daily Assessment & Plan (06/28/2021 12:28 PM SPEECH LANGUAGE PATHOLOGIST PRN): With hypercholesterolemia Will start LT4 50 mcg daily, which can help to lower cholesterol Recheck TSH, FT4 in 3 m Vitamin D deficiency 06/28/2021 Assessment & Plan (07/08/2023 12:51 PM SPEECH LANGUAGE PATHOLOGIST PRN): Chronic, well controlled UD 25 OH vit D levels Will adjust vit D dose if indicated Assessment & Plan (06/28/2021 12:30 PM SPEECH LANGUAGE PATHOLOGIST PRN): Check vit D levels Adjust dose of vit D accordingly Family history of pituitary disease 09/02/2017 Osteoporosis 05/04/2013 Overview (08/29/2016): Osteoporosis Assessment & Plan (07/08/2023 12:50 PM SPEECH LANGUAGE PATHOLOGIST PRN): Chronic , well controlled Prolia very 6 [...] calcium Assessment & Plan (07/18/2022 4:18 PM SPEECH LANGUAGE PATHOLOGIST PRN): Continue Forteo. Continue Ca and vit D After completing 2 years of Forteo, in December, will consider starting Prolia Assessment & Plan (06/28/2021 12:27 PM SPEECH LANGUAGE PATHOLOGIST PRN): Continue Forteo Weight bearing exercise Calcium and [...] disease Assessment & Plan (07/08/2023 12:51 PM SPEECH LANGUAGE PATHOLOGIST PRN): Chronic, well controlled UD TFTs Continue Levothyroxine [...] serum Ca. Check 25 oh vit D Social History Tobacco Use Types Packs/Day Years [...] on file Legal Sex Female 11:14 AM SPEECH LANGUAGE PATHOLOGIST PRN Gender Identity Female 08/22/2020 9:50 AM CDT Sexual Orientation Straight 08/22/2020 9: 50 AM CDT Last Filed Vital Signs Vital Sign Reading Time Taken Comments Blood Pressure 110/66 07/13/2024 11:43 AM SPEECH LANGUAGE PATHOLOGIST PRN Pulse 82 07/13/2024 11:43 AM SPEECH LANGUAGE PATHOLOGIST PRN Temperature 36.2 C (97.1 F) 04/14/2024 11:12 AM SPEECH LANGUAGE PATHOLOGIST PRN Respiratory Rate 20 07/13/2024 11:4 3 AM SPEECH LANGUAGE PATHOLOGIST PRN Oxygen Saturation 100% 04/14/2024 11: 12 AM SPEECH LANGUAGE PATHOLOGIST PRN Inhaled Oxygen Concentration - - Weight 64.3 kg (141 lb 12.8 oz) 025 11:43 AM SPEECH LANGUAGE PATHOLOGIST PRN Height 170.2 cm (5' 7 ) 07/13/2024 11:4 3 AM SPEECH LANGUAGE PATHOLOGIST PRN Body Mass Index 22.21 07/13/2024 11:43 AM SPEECH LANGUAGE PATHOLOGIST PRN Plan of Treatment Not on file Procedures Procedure Name Priority Date/Time Associated Diagnosis Comments VITAMIN D 25 HYDROXY Routine 07/13/2024 12:31 PM SPEECH LANGUAGE PATHOLOGIST PRN Vitamin D deficiency TSH Routine 07/13/2024 12:31 PM SPEECH LANGUAGE PATHOLOGIST PRN Lymphocytic thyroiditis T4, FREE Routine 07/13/2024 12:31 PM SPEECH LANGUAGE PATHOLOGIST PRN Lymphocytic thyroiditis DEXA TBS AXIAL SKELETON BONE DENSITY 1 OR MORE SITES Schedule Routine, Read Routine (OP Routine) 03/03/2023 10:04 AM CDT Osteoporosis, unspecified osteoporosis type, unspecified pathological fracture presence from Last 3 Months or Most Recently Relevant to Health Maintenance Results * Vitamin D 25 hydroxy (07/13/2024 12:31 PM SPEECH LANGUAGE PATHOLOGIST PRN) Vitamin D 25-OH 51 30 - 80 ng/mL Blood 07/13/2024 12:3 1 PM SPEECH LANGUAGE PATHOLOGIST PRN 07/13/2024 5:04 PM SPEECH LANGUAGE PATHOLOGIST PRN Jaylan Matta MD LAB BLOOD ORDERABLES Final Resul t Performing Organization Address [facility] Co de Phone Number DEE LÓPEZ [address] [place] [address] * TSH (07/13/2024 12:31 PM SPEECH LANGUAGE PATHOLOGIST PRN) Thyroid Stimulating Hormone 3.00 0.30 - 4.20 mcIUnit/mL Blood 07/13/2024 12:3 1 PM SPEECH LANGUAGE PATHOLOGIST PRN 07/13/2024 5:04 PM SPEECH LANGUAGE PATHOLOGIST PRN us Jaylan Matta MD LAB BLOOD ORDERABLES Final Resul t Performing Organization Address City/[facility] Co de Phone Number DEE LÓPEZ [address] [address] [place] [address] * T4, free (07/13/2024 12:31 PM SPEECH LANGUAGE PATHOLOGIST PRN) Free T4 1.21 0.90 - 1.70 ng/dL Blood 07/13/2024 12:3 1 PM SPEECH LANGUAGE PATHOLOGIST PRN 07/13/2024 5:04 PM SPEECH LANGUAGE PATHOLOGIST PRN us Jaylan Matta MD LAB BLOOD ORDERABLES Final Resul t DEE LÓPEZ [address] [address] [place] [address] * Dexa TBS Axial Skeleton Bone Density 1 or more sites (03/03/2023 10:04 AM CDT) Anatomical Region Laterality Modality Wrist, Body N/A Radiographic Dora ging Narrative 03/03/2023 10:29 AM CDT Patient Name: Vilma Mckenzie Date of : 1955 Date of scan: 03/03/2023 Bone mineral density was performed on a Holo[employer]á [employer] Discovery Densitometer. Based on machine cross-calibration and [...] mineral density scan were prepared by Mona Vásquez(Max) AMARILYS who is accredited by the International Society of Clinical Densitometry. The overall patient assessment and scan interpretation were performed by Robert Berry M.D. who is certified by the International Society of Clinical Densitometry. [id number] Robert Berry MD [facility] DXA PROCEDURES Final Re sult from Last 3 Months or Most Recently Relevant to Health Maintenance Insurance [employer] [place] [id number] [facility] [id number] [facility] MEDICARE Care Teams Sign Artist Relationship Specialty Start Date End Date Mercedez Morillo MD PCP - General 08/26/16
[2024-08-03 13:30] LABS: Basophils Absolute Auto 0.1 K/mm3 (0.0-0.1); Basophils Percent Auto 1.7 % (0.2-1.2); Eosinophils Absolute Auto 0.1 K/mm3 (0-0.3); Eosinophils Percent Auto 2.8 % (0-4.4); Hematocrit 47.8 % (37.0-47.0); Hemoglobin 15.4 g/dL (12.0-15.0); Immature Granulocyte Absolute 0.01 K/mm3 (0.00-0.031); Immature Granulocyte Percent A 0.2 % (0-0.5); Lymphocytes Absolute Auto 1.45 K/mm3 (0.9-3.2); Lymphocytes Percent Auto 31.2 % (18.3-44.2); Mean Corpuscular HGB Conc 32.2 g/dl (32-36); Mean Corpuscular Hemoglobin 29.6 pg (26-34); Mean Corpuscular Volume 91.7 fl (80-100); Mean Platelet Volume 10.3 fl (7.4-10.4); Monocytes Absolute Auto 0.5 K/mm3 (0.1-0.6); Monocytes Percent Auto 11.6 % (2.6-8.5); Neutrophils Absolute Auto 2.4 K/mm3 (1.3-6.7); Neutrophils Percent Auto 52.5 % (45.5-73.1); Platelet Count Result 287 k/mm3 (150-375); Red Blood Count 5.21 M/mm3 (4.2-5.4); Red Cell Distribution Width 13.5 % (11.5-14.5); White Blood Count 4.7 K/mm3 (4.5-10.0)
[2024-08-03 13:55] LABS: Alanine Aminotransferase 33 U/L (6-35); Albumin Level 4.2 g/dL (3.5-5.1); Alkaline Phosphatase 50 U/L (38-126); Anion Gap 10 mmol/L (4-12); Aspartate Amino Transferase 50 U/L (14-36); Bilirubin,Total 0.7 mg/dL (0.2-1.3); Blood Urea Nitrogen 14 mg/dL (7-17); Calcium 8.9 mg/dL (8.4-10.2); Carbon Dioxide 26 mmol/L (22-30); Chloride 103 mmol/L (98-107); Cholesterol 202 mg/dL (0-200); Estimated Glomerular Filt Rate > 60; Glucose 88 mg/dL (65-110); HDL Direct 54 mg/dL; Potassium 4.7 mmol/L (3.4-5.0); Sodium 139 mmol/L (137-145); Triglycerides 94 mg/dL (<150)
[2024-08-03 14:06] LABS: LDL Cholesterol Direct 106 mg/dL
[2024-08-04 11:49] LABS: CA 19-9 4 U/mL (<34)
== END 2024-08-03 08:30 | disposition home or self-care (01) ==
PROVIDERS: PCP Family Medicine; Visit Provider Student in an Organized Health Care Education/Training Program
DX: K86.9 Disease of pancreas, unspecified (principal); D37.8 Neoplasm of uncertain behavior of other specified digestive organs; E83.51 Hypocalcemia; E89.2 Postprocedural hypoparathyroidism; E78.2 Mixed hyperlipidemia; R53.83 Other fatigue
CPT/HCPCS: 36415; 80053; 80061; 85025; 86301

== ENCOUNTER 2024-08-19 00:26 | Day surgery (SDC) | payer MEDICARE, SELFPAY ==
[2024-08-09 11:20] VITALS: BMI 21.7
--- NOTE | 2024-08-09 11:49 | PC.NURSE ---
Report to the Outpatient Waiting Room, entrance under the green pavilion located off [facility], at time __11:00AM on date ___08/19/24____. Planned Procedure Time: __1:00PM .? Time changes happen often and if your time is changed the preop area will call you the afternoon before. - You and your visitor will be asked to self-screen and do not enter if you have any COVID symptoms. Please call surgeon if you need to reschedule. - A mask is optional within the hospital at this time. Patients may have clear liquids (water, carbonated beverages, clear teas, apple juice) until 3 hours prior to surgery (10:00AM) with a maximum of 20 ounces. - No food from midnight until time of surgery and no smoking, or chewing tobacco (or any form of nicotine). No chewing gum, candy or mints. Take only the following medications with a SIP of water on the morning of surgery: __LEVOTHYROXINE. MAY TAKE SUMATRIPTAN NEEDED FOR MIGRAINE._ DO NOT STOP ANY OF YOUR OTHER PRESCRIPTION MEDICATIONS PRIOR TO SURGERY EXCEPT THE FOLLOWING Hold all vitamins and supplements for 3 days per anesthesiologist.- LAST DOSE 08/15/24 Please no make-up, nail fijian, hairspray, perfume, deodorant, or body powder the day of surgery.? No jewelry (including any body piercings) or valuables the day of surgery, leave them at home.? Please take a shower or bath the night before, or the morning of, surgery with an antibacterial soap.? Wear comfortable, loose fitting clothing.? - Jewelry must be removed prior to entering the operating room.? Rings and piercings that are not removed may be cut off. - The hospital will not accept responsibility for valuables.? - Please leave all valuables, including medications, at home the day of surgery. If you are going home after surgery, a licensed delivery driver must drive you home.? - NO public transportation without another adult if you receive anesthesia. - We recommend that an adult stay with you for 24 hours following discharge. - We also recommend that you do not drive, make important decision, drink alcoholic beverages, or take any drugs that were not prescribed by your health care provider for at least 24 hours after your discharge time. Follow any additional instructions given to you from your surgeon. Telephone instructions given to PATIENT and asked if any additional questions and then verbalized understanding. Patient advised to call surgeon office or pre surgery nurse liaison [phone] if any additional questions.
[2024-08-19] VITALS (13 sets, daily range): BP systolic 98–140; BP diastolic 59–83; PULSE 66–80; RESP 12–16; TEMP 36.3–36.7; O2SAT 94–100; BMI 21.5
--- OUTSIDE RECORDS SUMMARY | 2024-08-19 00:30 | XMS_ITS | Clinical Summary ---
Author Organization [facility] Address [address] [place] [address] Care Team Providers Care Personal Care Worker Name Role Phone Mercedez Morillo MD Primary Care Provider [phone] Allergies Active Allergy Reactions Criticality Noted Date Comments Amoxicillin Poison Coco Extract Rash Medium 12/11/2022 Prednisone Agitation,Anxiety Low 12/25/2020 Medications azelaic acid (FINACEA) 15 % cream apply by topical route 2 times every day a thin layer to the affected area(s) 0 1 Active pimecrolimus (ELIDEL) 1 % cream apply by topical route 2 times every day a thin layer to the affected area(s) ; rub in gently and completely 0 0 3 Active calcium carbonate-vitam in D3 (CALCIUM 600 WITH VITAMIN D3) 600 mg(1,500mg) -400 unit capsule 0 0 5 Active Additional Information Patient taking differently: 600 mg oral Daily, Reported on 07/13/2024 SUMAtriptan (IMITREX) 100 mg tablet Active turmeric (CURCUMIN MISC) Take by mouth daily 0 Active cetirizine 10 mg capsule Take 10 mg by mouth daily Active azelastine (ASTELIN) 137 mcg (0.1 %) nasal spray 2 Active riboflavin, vitamin B2, 400 mg tablet Take 400 mg by mouth daily 3 Active denosumab (PROLIA) 60 mg/mL syringe 3 Active estradioL (ESTRACE) 0.01 % (0.1 mg/gram) vaginal creamIndication s:Vaginal atrophy Use 1/4th of an applicator (1 gram) twice weekly. 42.5 g 3 4 Active multivitamin (MULTI-DAY ORAL) Take by mouth Active levothyroxine (SYNTHROID) 50 mcg tablet Take 1 tablet (50 mcg total) by mouth director health before breakfast 90 tablet 3 5 Active Active Problems Problem Noted Date Diagnosed Date Uterovaginal prolapse 01/30/2022 Assessment & Plan (10/09/2023 5:01 PM CDT): -currently managed with #3 Ring, she is happy with support and would like to continue with conservative management. -continue pessary self management, she leaves out nightly. -continue twice weekly VET -she will return in 12 months for pessary check Assessment & Plan (05/13/2022 5:21 PM PRIMARY SPECIAL EDUCATOR): -currently managed with #3 Ring -discussed trial [...] 06/28/2021 Assessment & Plan (07/18/2022 4:16 PM PRIMARY SPECIAL EDUCATOR): Continue Levothyroxine 50 mcg daily Assessment & Plan (06/28/2021 12:28 PM PRIMARY SPECIAL EDUCATOR): With hypercholesterolemia Will start LT4 50 mcg daily, which can help to lower cholesterol Recheck TSH, FT4 in 3 m Vitamin D deficiency 06/28/2021 Assessment & Plan (07/08/2023 12:51 PM PRIMARY SPECIAL EDUCATOR): Chronic, well controlled UD 25 OH vit D levels Will adjust vit D dose if indicated Assessment & Plan (06/28/2021 12:30 PM PRIMARY SPECIAL EDUCATOR): Check vit D levels Adjust dose of vit D accordingly Family history of pituitary disease 09/02/2017 Osteoporosis 05/04/2013 Overview (08/29/2016): Osteoporosis Assessment & Plan (07/08/2023 12:50 PM PRIMARY SPECIAL EDUCATOR): Chronic , well controlled Prolia very 6 [...] calcium Assessment & Plan (07/18/2022 4:18 PM PRIMARY SPECIAL EDUCATOR): Continue Forteo. Continue Ca and vit D After completing 2 years of Forteo, in December, will consider starting Prolia Assessment & Plan (06/28/2021 12:27 PM PRIMARY SPECIAL EDUCATOR): Continue Forteo Weight bearing exercise Calcium and [...] disease Assessment & Plan (07/08/2023 12:51 PM PRIMARY SPECIAL EDUCATOR): Chronic, well controlled UD TFTs Continue Levothyroxine [...] Encounters Date Type Department Care Team Description 08/18/2024 10:35 AM CDT Hospital Encounter [facility] [address] [place] [address] Pancreatic cyst 08/18/2024 Telephone [facility] [address] [address] Eva Carrillo LPN 08/05/2024 Orders Only [facility] [address] [address] Jaylan Matta MD Pancreatic cyst (Primary Dx) 08/03/2024 3:27 PM CDT - 08/03/2024 11:59 PM CDT Hospital Encounter [address] [phone] Family history of pituitary disease Discharge Disposition: Discharge to home or self care 08/03/2024 3:15 PM CDT Lab [facility] Outpatient Lab at [address] [phone] Vitamin D deficiency (Primary Dx) 07/29/2024 Orders Only [facility] [address] [address] Jaylan Matta MD Family history of pituitary disease (Primary Dx) 07/16/2024 Results [facility] [address] [phone] Jaylan Matta MD 07/13/2024 12:20 PM PRIMARY SPECIAL EDUCATOR Lab [address] [phone] Lymphocytic thyroiditis; Vitamin D deficiency 07/13/2024 11:30 AM PRIMARY SPECIAL EDUCATOR [facility] [address] [address] Jaylan Matta MD Lymphocytic thyroiditis (Primary Dx); Vitamin D deficiency 06/11/2024 Telephone [facility] [address] [address] Riddhi Moss RN from Last 3 Months Surgical History Surgery [...] on file Legal Sex Female 11:14 AM PRIMARY SPECIAL EDUCATOR Gender Identity Female 08/22/2020 9:50 AM CDT [...] Comments Blood Pressure 110/66 07/13/2024 11:43 AM PRIMARY SPECIAL EDUCATOR Pulse 82 07/13/2024 11:43 AM PRIMARY SPECIAL EDUCATOR Temperature 36.2 C (97.1 F) 04/14/2024 11:12 AM PRIMARY SPECIAL EDUCATOR Respiratory Rate 20 07/13/2024 11:4 3 AM PRIMARY SPECIAL EDUCATOR Oxygen Saturation 100% 04/14/2024 11: 12 AM PRIMARY SPECIAL EDUCATOR Inhaled Oxygen Concentration - - Weight 64.3 kg (141 lb 12.8 oz) 025 11:43 AM PRIMARY SPECIAL EDUCATOR Height 170.2 cm (5' 7 ) 07/13/2024 11:4 3 AM PRIMARY SPECIAL EDUCATOR Body Mass Index 22.21 07/13/2024 11:43 AM PRIMARY SPECIAL EDUCATOR Plan of Treatment Health Maintenance Due Date [...] Procedure Name Priority Date/Time Associated Diagnosis Comments BLOOD MISC TO CABO ROJO Routine 08/03/2024 3: 27 PM CDT CHROMOGRANIN A Routine 08/03/2024 3:27 PM CDT Family history of pituitary disease GASTRIN Routine 08/03/2024 3:27 PM CDT Family history of pituitary disease VITAMIN D 25 HYDROXY Routine 07/13/2024 12:31 PM PRIMARY SPECIAL EDUCATOR Vitamin D deficiency TSH Routine 07/13/2024 12:31 PM PRIMARY SPECIAL EDUCATOR Lymphocytic thyroiditis T4, FREE Routine 07/13/2024 12:31 PM PRIMARY SPECIAL EDUCATOR Lymphocytic thyroiditis DEXA TBS AXIAL SKELETON BONE DENSITY 1 OR MORE SITES Schedule Routine, Read Routine (OP Routine) 03/03/2023 10:04 AM CDT Osteoporosis, unspecified osteoporosis type, unspecified pathological fracture presence from Last 3 Months or Most Recently Relevant to Health Maintenance Results * Chromogranin A (08/03/2024 3:27 PM CDT) Chromogranin A 91 <93 ng/mL [facility] Comment: ADDITIONAL INFORMATION The testing method is a homogeneous time-resolved immunofluorescent assay manufactured by [employer] and performed on the Unbound KrNanotionor Compact Plus. Values obtained with different assay methods or kits may be different and cannot be used interchangeably. Test results cannot be interpreted as absolute evidence for the presence or absence of malignant disease. In some immunoassays, the presence of unusually high concentrations of analyte may result in a high-dose hook effect. This may result in a lower or even normal measured analyte concentration. If the reported result is inconsistent with the clinical presentation, the laboratory should be alerted for troubleshooting. For diagnostic purposes, these immunoassay results should always be assessed in conjunction with the patients medical history, clinical examination and other findings. Test Performed by: [place] [address] Territory Service Representative: Lucinda Renae Ph.D.; CLIA# [id number] Blood 08/03/2024 3:27 PM CDT 08/03/2024 9:25 PM CDT us Jaylan Matta MD LAB BLOOD ORDERABLES Final Resul t Performing Organization Address [facility] de Phone Number DEE MARIBEL [phone] [address] [address] [facility] * Gastrin (08/03/2024 3:27 PM CDT) [facility] Signature Gastrin 38 pg/mL [facility] Comment: REFERENCE VALUE <100 Reference ranges valid for >= 8 hour fast. Test Performed by: [facility] [employer] [place] [address] Territory Service Representative: Lucinda Renae Ph.D.; CLIA# [id number] Blood 08/03/2024 3:27 PM CDT 08/03/2024 9:25 PM CDT us Jaylan Matta MD LAB BLOOD ORDERABLES Final Resul t Performing Organization Address [facility] [place] [address] [address] [address] [facility] * Vitamin D 25 hydroxy (07/13/2024 12:31 PM PRIMARY SPECIAL EDUCATOR) Vitamin D 25-OH 51 30 - 80 ng/mL Blood 07/13/2024 12:3 1 PM PRIMARY SPECIAL EDUCATOR 07/13/2024 5:04 PM PRIMARY SPECIAL EDUCATOR us Jaylan Matta MD LAB BLOOD ORDERABLES Final Resul t Performing Organization Address [facility] Co de Phone Number DEE [phone] [address] [place] [address] * TSH (07/13/2024 12:31 PM PRIMARY SPECIAL EDUCATOR) Thyroid Stimulating Hormone 3.00 0.30 - 4.20 mcIUnit/mL Blood 07/13/2024 12:3 1 PM PRIMARY SPECIAL EDUCATOR 07/13/2024 5:04 PM PRIMARY SPECIAL EDUCATOR us Jaylan Matta MD LAB BLOOD ORDERABLES Final Resul t Performing Organization Address [facility] Co de Phone Number DEE [phone] [address] [place] [address] * T4, free (07/13/2024 12:31 PM PRIMARY SPECIAL EDUCATOR) Free T4 1.21 0.90 - 1.70 ng/dL Blood 07/13/2024 12:3 1 PM PRIMARY SPECIAL EDUCATOR 07/13/2024 5:04 PM PRIMARY SPECIAL EDUCATOR us Jaylan Matta MD LAB BLOOD ORDERABLES Final Resul t Performing Organization Address [facility] de Phone Number DEE [phone] [address] [facility] [place] [address] * Dexa TBS Axial Skeleton Bone Density 1 or more sites (03/03/2023 10:04 AM CDT) Anatomical Region Laterality Modality Wrist, Body N/A Radiographic Dora ging Narrative 03/03/2023 10:29 AM CDT Patient Name: Vilma Mckenzie Date of : 1955 Date of scan: 03/03/2023 Bone mineral density was performed on a Hologic Discovery Densitometer. Based on machine cross-calibration and [...] by the International Society of Clinical Densitometry. [id number] Robert Berry MD IMG DXA PROCEDURES Final Re sult from Last 3 Months or Most Recently Relevant to Health [place] [address] [place] [address] [employer] [place] [address] [facility] Address: [address] [place] [address] Care Teams Personal Care Worker Relationship Specialty Start Date End Date Mercedez Morillo MD PCP - General 08/26/16
--- OUTSIDE RECORDS SUMMARY | 2024-08-19 00:30 | XMS_ITS | Encounter Summary ---
Author Organization [facility] Address [address] [place] [address] Phone Care Team Providers Care Regional Economist Name Role Phone Mercedez Morillo MD Primary Care Provider [phone] Encounter Details Date Type Department Care Team (Late st Contact Info) Description 03/03/2023 Treatment [place] [id number] [facility] Advanced Medicine 5th [place] [address] [place] [address] Robert Berry MD [address] [facility] [address] [place] [address] Social History Tobacco Use Types Packs/Day Years [...] on file Legal Sex Female 11:14 AM QUILT STUFFER Gender Identity Female 08/22/2020 9:50 AM CDT Sexual Orientation Straight 08/22/2020 9: 50 AM CDT documented as of this encounter Plan of Treatment Not on file documented as of this encounter Visit Diagnoses Not on filedocumented in this encounter Care Teams Regional Economist Relationship Specialty Start Date End Date Mercedez Morillo MD PCP - General 08/26/16 documented as of this encounter
--- OUTSIDE RECORDS SUMMARY | 2024-08-19 00:30 | XMS_ITS | Encounter Summary ---
Author Organization [facility] Address [address] [facility] [place] [address] Care Team Providers Care Numerical Tool Programmer Name Role Phone Unavailable Primary Care Provider Unavailabl e Encounter Details Date Type Department Care Team (Late st Contact Info) Description 11/25/2019 Lab Requisition [facility] Lab [address] [place] [id number] Venkatesh Woodson MD [address] [place] [address] Social History Tobacco Use Types Packs/Day [...] AM CDT) Case Report Dermatopathology Report Case: [id number] Authorizing Provider: Venkatesh Woodson MD Collected: 11/23/2019 12:00 AM Ordering Location: [facility] Lab Received: 11/25/2019 10:45 AM Pathologist: Nicole Gerardo MD Specimen: Skin, right upper buttock 0 1:12 PM CDT DERMATOPATHOLOGY LABORATORY Final Diagnosis Specimen A. 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 Path # [id number]. 0 1:12 PM CDT DERMATOPATHOLOGY LABORATORY Gross Description Specimen A: Received is one formalin filled container labeled with the patient's name and designated right upper buttock. The specimen consists of a shave biopsy measuring [id number]. Jar 0. 0 1:12 PM CDT DERMATOPATHOLOGY [...] characteristic determined by the Dermatopathology Laboratory at [facility], directed by Dr. Virgie Martinez. These tests need not be, and therefore are not, approved by the [place] Food and Drug Administration. The tests are used for clinical purposes. Billing Codes Specimen Charges Stain Charges 48868 1 0 1:12 PM CDT DERMATOPATHOLOGY LABORATORY Embedded Images 0 1:12 PM CDT DERMATOPATHOLOGY LABORATORY Pathology/Cytolog y TISSUE SPECIMEN FROM SKIN / Unknown 11/23/2019 11/25/2019 10:45 AM CDT Venkatesh Woodson MD LAB - PATHOLOGY/CYTO LOGY ORDERABLES DERMATOPATHOLOGY LABORATORY [facility] - Department of Dermatology [employer] [place] [address], [facility] [phone] documented in this encounter Visit Diagnoses Not on filedocumented in this encounter
--- OUTSIDE RECORDS SUMMARY | 2024-08-19 00:30 | XMS_ITS | Encounter Summary ---
Author Organization [facility] Healthcare Address [address] [place] [address] Care Team Providers Care Head Of Strategy Name Role Phone Mercedez Morillo MD Primary Care Provider Encounter Details Date Type Department Care Team (Late st Contact Info) Description 08/18/2024 Telephone [facility] of [address] [address] Eva Carrillo LPN Social History Tobacco Use Types Packs/Day Years [...] on file Legal Sex Female 11:14 AM MEDICAL RESEARCH ASSOCIATE Gender Identity Female 08/22/2020 9:50 AM CDT Sexual Orientation Straight 08/22/2020 9: 50 AM CDT documented as of this encounter Miscellaneous Notes * Telephone Encounter - Eva Carrillo LPN - 08/18/2024 2:16 PM CDT Pt called in requesting results to an MRI done earlier today. Pt states that she is scheduled for an appendectomy tomorrow and wants to know if she needs to put the procedure on hold due to the MRI results. Please advise. documented in this encounter Plan of Treatment Not on file documented as of this encounter Visit Diagnoses Not on filedocumented in this encounter Care Teams Head Of Strategy Relationship Specialty Start Date End Date Mercedez Morillo MD PCP - General 08/26/16 documented as of this encounter
--- OUTSIDE RECORDS SUMMARY | 2024-08-19 00:30 | XMS_ITS | Clinical Summary ---
Author Organization [facility] Address [address] [place] [address] Phone Care Team Providers Care Acid Tank Cleaner Name Role Phone Mercedez Morillo MD Primary Care Provider [phone] Allergies No known active allergies Medications ibandronate (BONIVA) 150 mg tablet 3 Active ELIDEL 1 % Cream 3 Active FINACEA 15 % Gel 3 Active EVISTA 60 mg tablet 3 Active Eflornithine (VANIQA) 13.9 % Cream Apply to affected area. Active Cetirizine (ZYRTEC) 10 mg Capsule Take by mouth. Activ e GLUC HCL/CSANA/GLY- AM-GLY,MX/C (GLUCOSAM-COND ROITIN-GA GLYCN-C ORAL) Take by mouth. A ctive Insulin [place], Disposable, (Ira Pen Needle) 32 gauge x 5/32 Needle Use once daily with Forteo 100 Each 2 08/14/2021 3:04 PM CDT 1 Active Insulin [place], Disposable, (Unifine Pentips Plus) 31 gauge x 5/16 Needle USE ONCE DAILY WITH FORTEO 100 Each 2 2 Active azithromycin (ZITHROMAX) 250 mg tablet Take 2 tablets by mouth on day 1, then take 1 tablet by mouth daily on days 2-5 6 Tablet 12/11/2021 6:39 PM CDT 2 Active azelastine (ASTEPRO) 0.15 % (205.5 mcg) nasal spray Administer 2 Sprays in each nostril daily. 30 mL 2 Active mupirocin (BACTROBAN) 2 % Ointment APPLY TO THE AFFECTED AREA(S) TWICE DAILY. 22 Gram 01/21/2022 6:21 PM CDT 2 Active teriparatide (Forteo) 20 mcg/dose (600mcg/2.4mL) pen Inject 20 mcg by subcutaneous injection daily. 7.2 mL 1 05/16/2022 11:40 AM ACID TANK CLEANER 2 Active azelastine (ASTELIN) 137 mcg/actuation nasal spray ADMINISTER 1 SPRAY IN EACH NOSTRIL EVERY 12 HOURS. 30 mL 11 10/14/2022 11:39 AM CDT 2 Active levothyroxine 50 mcg tablet Take 1 Tablet (50 mcg) by mouth daily. 30 Tablet 7 07/18/2022 2:04 PM ACID TANK CLEANER 2 Active levothyroxine 50 mcg tablet Take 1 tablet (50 mcg total) by mouth obiee lead developer before breakfast 90 Tablet 3 04/13/2023 12:54 PM ACID TANK CLEANER 3 Active teriparatide (Forteo) 20 mcg/dose (600mcg/2.4mL) pen Inject 0.08 mL (20 mcg total) under the skin obiee lead developer before breakfast 7.2 mL 3 11/20/2022 11:11 AM CDT 3 Active Insulin [place], Disposable, (Pen Needle) 32 gauge x 5/32 Needle Use once daily for forteo injection 100 Each 3 11/20/2022 11:11 AM CDT 3 Active pimecrolimus (Elidel) 1 % Cream Apply to rash on trunk twice daily as directed 60 Gram 4 12/05/2022 3:02 PM CDT 3 Active Azelaic Acid (Finacea) 15 % Gel Apply to face twice daily. 50 Gram 10 12/05/2022 3:02 PM CDT 3 Active azelastine (ASTELIN) 137 mcg/actuation nasal spray Administer 1 spray in both nostrils every 12 hours 30 mL 11 01/07/2024 12:14 PM CDT 3 Active SUMAtriptan (IMITREX) 100 mg tablet Take 1 tab at onset of headache; if no relief, may repeat 1 tab after at least 2 hrs; max = 2 tabs/24 hrs PO 9 Tablet 3 04/29/2023 12:54 PM ACID TANK CLEANER 3 Active SUMAtriptan (IMITREX) 100 mg tablet take 1 tab at onset of headache; if no relief, may repeat 1 tab after at least 2 hrs; max = 2 tabs/24 hrs PO 9 Tablet 3 3 Active SUMAtriptan (IMITREX) 100 mg tablet Take one tablet by mouth at onset of headache; if no relief may repeat one tablet after at least 2 hours. maximum of 2 tablets in 24 hours. 9 Tablet 3 3 Active estradioL (ESTRACE) 0.01% (0.1 mg/g) vaginal cream Use 1/4th of an applicator (1 gram) twice weekly. 42.5 Gram 3 04/25/2024 11:14 AM ACID TANK CLEANER 4 Active azelastine (ASTELIN) 137 mcg/actuation nasal spray Oxbow 1 Oxbow in each nostril every 12 hours. 30 mL 11 04/25/2024 11:14 AM ACID TANK CLEANER 4 Active SUMAtriptan (IMITREX) 100 mg tablet Take 1 Tablet (100 mg) by mouth as needed at onest of headache. If no relief, may repeat with another tablet after at least 2 hours. Max doseage: 2 tablets/24 hours 9 Tablet 3 01/02/2024 11:36 AM CDT 4 Active levothyroxine 50 mcg tablet Take 1 Tablet (50 mcg) by mouth daily in the morning BEFORE BREAKFAST. 90 Tablet 3 07/06/2024 12:54 PM ACID TANK CLEANER 5 Active psyllium (Hydrocil) Powder 1 tbsp orally daily; mix into at least 8 oz of water or juice before administering 300 Gram 5 Active levoFLOXacin (LEVAQUIN) 750 mg tablet Take 1 Tablet (750 mg) by mouth daily for 5 days. 5 Tablet 07/24/2024 5:01 PM ACID TANK CLEANER 5 025 metroNIDAZOLE (FLAGYL) 500 mg tablet Take 1 Tablet (500 mg) by mouth 3 times daily for 5 days. 14 Tablet 07/24/2024 5:01 PM ACID TANK CLEANER 025 Active Problems Patient Care Coordination No te Formatting of this note migh t be different from the original. Primary Care: Mercedez Morillo MD Referring Provider: Mercedez Morillo MD [address] [place] [address] Other: Problem Noted Date Diagnosed Date Breast mass, right 04/06/2013 Overview (04/06/2013): Looks benign, stable, plan continued 6 month follow-up Encounters Date Type Department Care Team Description 08/11/2024 External Device Data [facility] ABSTRACTION Provider, Abstract 07/31/2024 External Device Data [facility] ABSTRACTION Provider, [...] on file Legal Sex Female 1:54 PM ACID TANK CLEANER Gender Identity Not on file Sexual Orientation Not on file Last Filed Vital Signs Vital Sign Reading Time Taken Comments Blood Pressure 108/61 04/06/2013 3:03 PM ACID TANK CLEANER Pulse 76 04/06/2013 3:03 PM ACID TANK CLEANER Temperature - - Respiratory Rate - - Oxygen Saturation - - Inhaled Oxygen Concentration - - Weight 61.7 kg (136 lb) 04/06/2013 3:03 PM ACID TANK CLEANER Height 172.7 cm (5' 8 ) 04/06/2013 3:03 PM ACID TANK CLEANER Body Mass Index 20.68 04/06/2013 3:03 PM ACID TANK CLEANER Plan of Treatment Health Maintenance Due Date [...] OR WO CAD Routine 04/06/2013 2:47 PM ACID TANK CLEANER Breast mass from Last 3 Months or Most Recently Relevant to Health Maintenance Results * MAMMO DIGITAL DIAG UNI RIGHT (04/06/2013 2:47 PM ACID TANK CLEANER) Anatomical Region Laterality Modality Breast Right Mammography 04/06/2013 2:46 PM ACID TANK CLEANER Narrative 04/07/2013 7:32 PM ACID TANK CLEANER RIGHT BREAST FULL FIELD DIGITAL DIAGNOSTIC MAMMOGRAM [...] Most Recently Relevant to Health Maintenance Insurance [place] [facility] [employer] PLANS (INTERNAL) [facility] RX AET[employer] Medicare Part D Care Teams Acid Tank Cleaner Relationship Specialty Start Date End Date Mercedez Morillo MD [address] [place] [id number] PCP - General Family Practice 04/06/13
--- OUTSIDE RECORDS SUMMARY | 2024-08-19 00:30 | XMS_ITS | Encounter Summary ---
Author Organization [facility] Healthcare Address [address] [place] [address] Care Team Providers Care Jar Capper Name Role Phone Mercedez Morillo MD Primary Care Provider [phone] Encounter Details Date Type Department Care Team (Late st Contact Info) Description 07/16/2024 Results Follow-Up [facility] [address] [place] [phone] [place]lan Matta [place] [id number] [place] [address] Social History Tobacco Use Types Packs/Day [...] on file Legal Sex Female 11:14 AM ADVERTISING CONSULTANT Gender Identity Female 08/22/2020 9:50 AM CDT Sexual Orientation Straight 08/22/2020 9: 50 AM CDT documented as of this encounter Plan of Treatment Not on file documented as of this encounter Visit Diagnoses Not on filedocumented in this encounter Care Teams Jar Capper Relationship Specialty Start Date End Date Mercedez Morillo MD PCP - General 08/26/16 documented as of this encounter
--- OUTSIDE RECORDS SUMMARY | 2024-08-19 00:30 | XMS_ITS | Referral Summary ---
Author Organization [address] [facility] Address [address] [place] [address] Care Team Providers Care Welder Manufacture Name Role Phone Mercedez Morillo MD Primary Care Provider [phone] Encounters Date Type Department Care Team Description 08/18/2024 Telephone [facility] [address] [phone] Eva Carrillo LPN 08/18/2024 10:35 AM CDT Hospital Encounter [address] [address] Pancreatic cyst 08/05/2024 Orders Only [facility] [address] [address] Jaylan Matta MD Pancreatic cyst (Primary Dx) 08/03/2024 3:27 PM CDT - 08/03/2024 11:59 PM CDT Hospital Encounter [address] [address] Family history of pituitary disease Discharge Disposition: Discharge to home or self care 08/03/2024 3:15 PM CDT Lab [facility] Outpatient Lab at [address] [address] Vitamin D deficiency (Primary Dx) 07/29/2024 Orders Only [facility] [address], [place] [address] Jaylan Matta MD Family history of pituitary disease (Primary Dx) 07/16/2024 Results Follow-Up [facility] [address] [address] Jaylan Matta MD 07/13/2024 12:20 PM EXECUTIVE ACCOUNT MANAGER Lab [address] [phone] Lymphocytic thyroiditis; Vitamin D deficiency 07/13/2024 11:30 AM EXECUTIVE ACCOUNT MANAGER Office Visit [facility] of [address] [phone] Jaylan Matta MD Lymphocytic thyroiditis (Primary Dx); Vitamin D deficiency 06/11/2024 Telephone [facility] [address] [facility] [address] [place] [address] Riddhi Moss RN from Last 3 Months Allergies Active Allergy [...] 1 tablet (50 mcg total) by mouth early childhood teacher before breakfast 90 tablet 3 5 Active [...] check Assessment & Plan (05/13/2022 5:21 PM EXECUTIVE ACCOUNT MANAGER): -currently managed with #3 Ring -discussed trial [...] 06/28/2021 Assessment & Plan (07/18/2022 4:16 PM EXECUTIVE ACCOUNT MANAGER): Continue Levothyroxine 50 mcg daily Assessment & Plan (06/28/2021 12:28 PM EXECUTIVE ACCOUNT MANAGER): With hypercholesterolemia Will start LT4 50 mcg daily, which can help to lower cholesterol Recheck TSH, FT4 in 3 m Vitamin D deficiency 06/28/2021 Assessment & Plan (07/08/2023 12:51 PM EXECUTIVE ACCOUNT MANAGER): Chronic, well controlled UD 25 OH vit D levels Will adjust vit D dose if indicated Assessment & Plan (06/28/2021 12:30 PM EXECUTIVE ACCOUNT MANAGER): Check vit D levels Adjust dose of vit D accordingly Family history of pituitary disease 09/02/2017 Osteoporosis 05/04/2013 Overview (08/29/2016): Osteoporosis Assessment & Plan (07/08/2023 12:50 PM EXECUTIVE ACCOUNT MANAGER): Chronic , well controlled Prolia very 6 [...] calcium Assessment & Plan (07/18/2022 4:18 PM EXECUTIVE ACCOUNT MANAGER): Continue Forteo. Continue Ca and vit D After completing 2 years of Forteo, in December, will consider starting Prolia Assessment & Plan (06/28/2021 12:27 PM EXECUTIVE ACCOUNT MANAGER): Continue Forteo Weight bearing exercise Calcium and [...] disease Assessment & Plan (07/08/2023 12:51 PM EXECUTIVE ACCOUNT MANAGER): Chronic, well controlled UD TFTs Continue Levothyroxine [...] on file Legal Sex Female 11:14 AM EXECUTIVE ACCOUNT MANAGER Gender Identity Female 08/22/2020 9:50 AM CDT Sexual Orientation Straight 08/22/2020 9: 50 AM CDT Last Filed Vital Signs Vital Sign Reading Time Taken Comments Blood Pressure 110/66 07/13/2024 11:43 AM EXECUTIVE ACCOUNT MANAGER Pulse 82 07/13/2024 11:43 AM EXECUTIVE ACCOUNT MANAGER Temperature 36.2 C (97.1 F) 04/14/2024 11:12 AM EXECUTIVE ACCOUNT MANAGER Respiratory Rate 20 07/13/2024 11:4 3 AM EXECUTIVE ACCOUNT MANAGER Oxygen Saturation 100% 04/14/2024 11: 12 AM EXECUTIVE ACCOUNT MANAGER Inhaled Oxygen Concentration - - Weight 64.3 kg (141 lb 12.8 oz) 025 11:43 AM EXECUTIVE ACCOUNT MANAGER Height 170.2 cm (5' 7 ) 07/13/2024 11:4 3 AM EXECUTIVE ACCOUNT MANAGER Body Mass Index 22.21 07/13/2024 11:43 AM EXECUTIVE ACCOUNT MANAGER Plan of Treatment Not on file Procedures Procedure Name Priority Date/Time Associated Diagnosis Comments BLOOD MISC TO [facility] Routine 08/03/2024 3: 27 PM CDT CHROMOGRANIN A Routine 08/03/2024 3:27 PM CDT Family history of pituitary disease GASTRIN Routine 08/03/2024 3:27 PM CDT Family history of pituitary disease VITAMIN D 25 HYDROXY Routine 07/13/2024 12:31 PM EXECUTIVE ACCOUNT MANAGER Vitamin D deficiency TSH Routine 07/13/2024 12:31 PM EXECUTIVE ACCOUNT MANAGER Lymphocytic thyroiditis T4, FREE Routine 07/13/2024 12:31 PM EXECUTIVE ACCOUNT MANAGER Lymphocytic thyroiditis DEXA TBS AXIAL SKELETON BONE DENSITY 1 OR MORE SITES Schedule Routine, Read Routine (OP Routine) 03/03/2023 10:04 AM CDT Osteoporosis, unspecified osteoporosis type, unspecified pathological fracture presence from Last 3 Months or Most Recently Relevant to Health Maintenance Results * Chromogranin A (08/03/2024 3:27 PM CDT) Chromogranin A 91 <93 ng/mL [facility] Comment: ADDITIONAL INFORMATION The testing method is a homogeneous time-resolved immunofluorescent assay manufactured by [employer] and performed on the [employer] Kryptor Compact Plus. Values obtained with different assay [...] examination and other findings. Test Performed by: [place] [address] Wire Brusher: Luicnda Renae Ph.D.; CLIA# [id number] Blood 08/03/2024 3:27 PM CDT 08/03/2024 9:25 PM CDT us Jaylan Matta MD LAB BLOOD ORDERABLES Final Resul t DEE [address] [address] Department [place] [address] [facility] * Gastrin (08/03/2024 3:27 PM CDT) Pathologist [facility] Gastrin 38 pg/mL [facility] Comment: REFERENCE VALUE <100 Reference ranges valid for >= 8 hour fast. Test Performed by: [facility] [address] [address] Wire Brusher: Lucinda Renae Ph.D.; CLIA# [id number] Blood 08/03/2024 3:27 PM CDT 08/03/2024 9:25 PM CDT us Jaylan Matta MD LAB BLOOD ORDERABLES Final Resul t Performing Organization Address City/[facility] Co de Phone Number DEE LÓPEZ [address] [facility] [place] [address] [facility] * Vitamin D 25 hydroxy (07/13/2024 12:31 PM EXECUTIVE ACCOUNT MANAGER) Vitamin D 25-OH 51 30 - 80 ng/mL Blood 07/13/2024 12:3 1 PM EXECUTIVE ACCOUNT MANAGER 07/13/2024 5:04 PM EXECUTIVE ACCOUNT MANAGER us Jaylan Matta MD LAB BLOOD ORDERABLES Final Resul t Performing Organization Address [facility] Co de Phone Number DEE [address] [address] [facility] Department [place] [address] * TSH (07/13/2024 12:31 PM EXECUTIVE ACCOUNT MANAGER) Thyroid Stimulating Hormone 3.00 0.30 - 4.20 mcIUnit/mL Blood 07/13/2024 12:3 1 PM EXECUTIVE ACCOUNT MANAGER 07/13/2024 5:04 PM EXECUTIVE ACCOUNT MANAGER Result Enmanuel Matta MD LAB BLOOD ORDERABLES Final Resul t Performing Organization Address [facility] Co de Phone Number DEE [address] [address] [facility] [place] [address] * T4, free (07/13/2024 12:31 PM EXECUTIVE ACCOUNT MANAGER) Free T4 1.21 0.90 - 1.70 ng/dL Blood 07/13/2024 12:3 1 PM EXECUTIVE ACCOUNT MANAGER 07/13/2024 5:04 PM EXECUTIVE ACCOUNT MANAGER us Jaylan Matta MD LAB BLOOD ORDERABLES Final Resul t Performing Organization Address City/[facility] Co de Phone Number MIGUELRACHELE [address] [address] [place] [address] * Dexa TBS Axial Skeleton Bone Density 1 or more sites (03/03/2023 10:04 AM CDT) Anatomical Region Laterality Modality Wrist, Body N/A Radiographic Dora ging Narrative 03/03/2023 10:29 AM CDT Patient Name: Vilma Mckenzie Date of : 1955 Date of scan: 03/03/2023 Bone mineral density was performed on a HoloTraktoPRO Discovery Densitometer. Based on machine cross-calibration and [...] by the International Society of Clinical Densitometry. [id number] Robert Berry MD IMG DXA PROCEDURES Final Re sult from Last 3 Months or Most Recently Relevant to Health [place] [address] [facility] [place] [address] [facility] Care Teams Welder Manufacture Relationship Specialty Start Date End Date Mercedez Morillo MD PCP - General 08/26/16
--- OUTSIDE RECORDS SUMMARY | 2024-08-19 00:30 | XMS_ITS | Clinical Summary ---
Author Organization [facility] Address [address] [place] [address] Care Team Providers Care Fish Agent Name Role Phone Unavailable Primary Care Provider Unavailabl e Source Comments [facility],non-owned Affiliates and Associated Physician Practices is amultiple site organization consisting of ambulatory clinics and hospital sitesin [place], [place], [place] and [place]. This disclosure is being madepursuant to the Care Everywhere program and may not contain all information available regarding this patient. Last updated 18.[facility] [employer] Social History Tobacco Use Types Packs/Day Years [...] to complete this topic MENINGOCOCCAL (Group B) VACC INE SHARED DECISION-MAKING Aged Out No longer eligibl e based on patient's age to complete this topic MENINGOCOCCAL GROUPS A/C/Y/W VACCINE Aged Out No longer eligible b ased on patient's age to [place] [address]
--- OUTSIDE RECORDS SUMMARY | 2024-08-19 00:30 | XMS_ITS | Encounter Summary ---
Author Organization [facility] Address [address] [place] [address] Care Team Providers Care Rn Integrity Name Role Phone Mercedez Morillo MD Primary Care Provider [phone] Reason for Referral * MRI/CAT/PET Scan (Routine) - Closed Specialty Diagnoses / Procedures Referred By Rosario reed Referred To Contact Radiology Diagnoses Pancreatic cyst Procedures MRI Abdomen [place] [address] [address] [address] Phone: tel: fax: [address] [address] Referral ID Status Reason Start Date Expiration Date Visits Re quested Visits Authorized [id number] Closed 08/05/2024 02/01/2025 1 1 Reason for Visit * MRI/CAT/PET Scan (Routine) - Closed Specialty Diagnoses / Procedures Referred By Rosario reed Referred To Contact Radiology Diagnoses Pancreatic cyst Procedures MRI Abdomen Pan[place] [address] [address] Phone: tel: fax: [address] [phone] Referral ID Status Reason Start Date Expiration Date Visits Re quested Visits Authorized [id number] Closed 08/05/2024 02/01/2025 1 1 Encounter Details Date Type Department Care Team (Latest Contact Info) Description 08/18/2024 10:35 AM CDT Hospital Encounter [facility] [address] [place] [address] Pancreatic cyst Social History Tobacco Use Types Packs/Day Years [...] on file Legal Sex Female 11:14 AM SENIOR NETWORK SECURITY ARCHITECT Gender Identity Female 08/22/2020 9:50 AM CDT Sexual Orientation Straight 08/22/2020 9: 50 AM CDT documented as of this encounter Plan of Treatment Pending Results Name Type Priority Associated Diagnoses Date /Time MRI Abdomen Pancreas W WO Contrast Imaging Schedule Routine, Read Routine (OP Routine) Pancreatic cyst 08/18/2024 11:36 AM CDT Scheduled Orders Name Type Priority Associated Diagnoses Orde r Schedule MRI Abdomen Pancreas W WO Contrast Imaging Schedule Routine, Read Routine (OP Routine) Pancreatic cyst Once for 1 Occurrences starting 08/18/2024 until 08/18/2024 documented as of this encounter Visit Diagnoses Diagnosis Pancreatic cyst Cyst and pseudocyst of pancreas documented in this encounter Administered Medications Inactive Administered Medications - up to 3 most recent administrations Medication Order MAR Action Action Date Dose Rate Site gadoterate meglumine injection 12 mL 12 mL, intravenous, Once in imaging, contrast, Starting on Fri08/18/24 at 1055, For 1 dose Contrast Given 08/18/2024 11:37 AM CDT 12 mL documented in this encounter Orders Medications Ordered That Osmar ht Not Have Been Administered Count Last Ordered Date First Ordered Date gadoterate meglumine injection 12 mL 1 07/25 documented in this encounter Care Teams Rn Integrity Relationship Specialty Start Date End Date Mercedez Morillo MD PCP - General 08/26/16 documented as of this encounter
[2024-08-19] MEDS: LACTATED RINGERS 1,000 ML 30 ML IV CONT ×2 (11:00→14:33)
[2024-08-19 11:01] LABS: Basophils Absolute Auto 0.1 K/mm3 (0.0-0.1); Basophils Percent Auto 0.9 % (0.2-1.2); Eosinophils Absolute Auto 0.1 K/mm3 (0-0.3); Eosinophils Percent Auto 0.9 % (0-4.4); Hematocrit 48.6 % (37.0-47.0); Hemoglobin 16.3 g/dL (12.0-15.0); Immature Granulocyte Absolute 0.01 K/mm3 (0.00-0.031); Immature Granulocyte Percent A 0.2 % (0-0.5); Lymphocytes Percent Auto 25.1 % (18.3-44.2); Mean Corpuscular HGB Conc 33.5 g/dl (32-36); Mean Corpuscular Hemoglobin 29.9 pg (26-34); Mean Platelet Volume 9.7 fl (7.4-10.4); Monocytes Absolute Auto 0.5 K/mm3 (0.1-0.6); Monocytes Percent Auto 8.5 % (2.6-8.5); Neutrophils Absolute Auto 4.1 K/mm3 (1.3-6.7); Neutrophils Percent Auto 64.4 % (45.5-73.1); Platelet Count Result 283 k/mm3 (150-375); Red Blood Count 5.46 M/mm3 (4.2-5.4); White Blood Count 6.4 K/mm3 (4.5-10.0)
--- NOTE | 2024-08-19 11:40 | WPDHPUPDATE1 ---
History and Physical Update Update Date/Time: 08/19/24 11:40 History and Physical has been reviewed, including an updated exam of the patient. There are NO changes in the patient's condition. Risks, benefits, and alternatives have been discussed and questions answered. Patient agrees to proceed with procedure.
[2024-08-19] MEDS: ceFAZolin 2 GM/D5W 50 ML 2 GM/50 ML BAG IVPB (12:25)
[2024-08-19] MEDS: BUPIVACAINE/EPINEPHRINE 0.5% 50 ML VIAL 30 ML INFILTRATE (12:25)
--- NOTE | 2024-08-19 12:27 | WPDANESEPPF ---
Anes - Initial Pre Proc Eval Procedure: Operation Date: 08/19/24 12:00 Proposed Procedures p Laparoscopic Appendectomy - Joe Cortez MD Date/Time: 08/19/24 12:27 Surgeon: Joe Cortez MD Pre Op Diagnosis: abn. ct scan of appendix, rt lower quad pain Patient Data Age: 69 Gender: F Height: 1.73 m Weight: 64.2 kg Last Vital Signs Temp 97.4 F L 08/19/24 11:06 Pulse 73 08/19/24 11:06 BP 130/68 08/19/24 11:06 Pulse Ox 100 08/19/24 11:06 O2 Del Method Room Air 08/19/24 11:06 Allergies Allergy/AdvReac Type Severity Reaction Status Date / Time latex Allergy Mild REDNESS/IRR Verified 08/19/24 11:03 ITATION prednisone AdvReac Mild CONFUSION/D Verified 08/19/24 11:03 RUNK-FEELIN G amoxicillin AdvReac Unknown Diarrhea Verified 08/19/24 11:03 adhesive tape AdvReac REDNESS/IRR Verified 08/19/24 11:03 ITATION hydrocodone AdvReac VIVID Verified 08/19/24 11:03 DREAMING Home Medications ?Medication ?Instructions ?Recorded ?Confirmed ?Type pimecrolimus 1 % topical cream 1 applic topical BID PRN ECZEMA 06/12/21 08/09/24 History calcium 600 mg (as 1 tablet PO DAILY 07/27/21 08/09/24 History carbonate)-vitamin D3 5 mcg (200 unit) tablet cetirizine 10 mg capsule (Zyrtec) 10 mg PO DAILY 07/27/21 08/09/24 History levothyroxine 50 mcg tablet 50 mcg PO DAILY 07/27/21 08/09/24 History multivitamin with minerals 1 tablet PO DAILY 07/27/21 08/09/24 History conjugated estrogens 0.625 mg/gram 0.625 mg vaginal 2XW #30 grams 12/11/21 08/09/24 Rx vaginal cream denosumab 60 mg/mL subcutaneous 60 mg subcut [id number] 12/31/23 08/09/24 History syringe (Prolia) sumatriptan succinate 100 mg tablet See Rx Instructions PO .COMPLEX #9 12/31/23 08/09/24 Rx tabs riboflavin (vitamin B2) 50 mg 50 mg PO DAILY 01/22/24 08/09/24 History tablet psyllium 1 tbsp PO DAILY #300 grams 07/24/24 08/09/24 Rx azelastine 137 mcg (0.1 %) nasal 1 spray intranasal Q12H PRN sinus 08/09/24 08/09/24 History spray symptoms Laboratory Tests 08/19/24 10:55 WBC 6.4 K/mm3 (4.5-10.0) RBC 5.46 H M/mm3 (4.2-5.4) Hgb 16.3 H g/dL (12.0-15.0) Hct 48.6 H % (37.0-47.0) MCV 89.0 fl (80-100) MCH 29.9 pg (26-34) MCHC 33.5 g/dl (32-36) RDW 13.0 % (11.5-14.5) Plt Count 283 k/mm3 (150-375) MPV 9.7 fl (7.4-10.4) Immature Gran % (Auto) 0.2 % (0-0.5) Neut % (Auto) 64.4 % (45.5-73.1) Lymph % (Auto) 25.1 % (18.3-44.2) [place] % (Auto) 8.5 % (2.6-8.5) Eos % (Auto) 0.9 % (0-4.4) Baso % (Auto) 0.9 % (0.2-1.2) Lymph # (Auto) 1.60 K/mm3 (0.9-3.2) [place] # (Auto) 0.5 K/mm3 (0.1-0.6) Eos # (Auto) 0.1 K/mm3 (0-0.3) Baso # (Auto) 0.1 K/mm3 (0.0-0.1) Abs Immat Gran (auto) 0.01 K/mm3 (0.00-0.031) Absolute Neuts (auto) 4.1 K/mm3 (1.3-6.7) Absolute Nucleated RBC 0.000 K/mm3 (0.0-0.012) Nucleated RBC % 0.0 % (0.0-0.2) Patient hx anesthesia problems: none Family hx anesthesia problems: none Results Review: All pre-operative results and documents have been reviewed as part of the pre-operative evaluation. [facility] Past Medical History Medical History Mixed hyperlipidemia Hearing loss Chronic rhinitis Migraine headache Vaginal prolapse TMJ (temporomandibular joint disorder) History of colon polyps Osteoporosis Hypothyroidism Surgical History Surgical History Hx of tonsillectomy History of parathyroidectomy Family History Family History Sibling Malignant neoplasm of prostate Hypercholesteremia Mother Osteoporosis Grandparent Osteoporosis Other Family history of glaucoma Social History Social History Smoking status: Never smoker Second hand tobacco smoke exposure: No Alcohol intake: never Drinks per week: 0 Alcohol use details: RARE, 3 TIMES A YEAR Substance use: never Substance use type: does not use Do You Feel Safe in your Home?: Yes Lack of Transportation: No Lack of Food: Never True Current Housing: I Have Housing Concerned About Future Housing: No Difficulty Paying Gas/Electric Bills: No Difficulty Paying for Meds: No Currently Unemployed: No Education: Master's Degree or Higher Difficulty w/ Childcare or Family Care: No Living arrangements: with family Additional living arrangements comments: [place] Gender identity (if verbalized by the patient): Female Sexual Orientation (if Verbalized by the Patient): Straight or Heterosexual Spiritual care concerns: No Agree to blood products: Yes Anes - Eval Final PreProcedure Day of Procedure 08/19/24 12:27 Patient weight: normal Heart: regular rate and rhythm Lungs: clear to auscultation Airway: Mallampati scale class II Neurological: alert and oriented Last oral intake: >/= 8 hours ASA classification: III Emergent: no Anesthetic plan: proceed Anesthesia type and monitoring: general ETT and standard monitoring Results Review: All pre-operative results and documents have been reviewed as part of the pre-operative evaluation. Informed Consent: The patient's anesthetic plan and its attendant risks and benefits were discussed with the patient/family/POA. Questions were solicited and answers provided to the satisfaction of the patient/family/POA.
[2024-08-19] MEDS: metroNIDAZOLE 500 MG/ISO 100ML 500 MG/100 ML BAG 100 MG IVPB (12:35)
[2024-08-19] MEDS: BUPIVACAINE/EPINEPHRINE 0.5% 30 ML VIAL INFILTRATE (13:10)
--- NOTE | 2024-08-19 14:07 | W.PM.PROC2 ---
Procedure Note - Detailed Date of Procedure 08/19/24 Pre-op Diagnosis Abnormal CT scan of the appendix Post-op Diagnosis Same Procedure Performed Laparoscopic appendectomy Surgeon Joe Cortez MD Uniform Cap Operator Mary Beth Blake DIRECTOR OF ANALYTICAL DEVELOPMENT Anesthesia General and Local Indications Patient was having diffuse abdominal pain and came to the emergency room on 07/23/2024. She had a CT scan of the abdomen which showed her appendix to be dilated to 1.6 cm but no evidence of inflammation. She was observed overnight and had complete resolution of her pain. I saw her in the office in follow-up. Her pain was very mild and chronic in the right lower quadrant. Due to the dilated appendix on CT scan and nonspecific right lower quadrant pain, she is taken to surgery now for laparoscopic appendectomy. Findings No evidence of acute inflammation. The proximal 2-3 cm of the appendix appeared normal but beyond that it was quite dilated. This was suggestive of a mucocele. There was no evidence of acute inflammation or other lesions. Description of Procedure Patient was taken to surgery and induced into general anesthesia. The abdomen is prepped and draped. Trocars were placed in the usual fashion using TrueSpan optical trocars and 0.5% Marcaine with epinephrine local anesthetic. Once trocars were in place and insufflation had been carried out, the patient was placed in Trendelenburg with the right-side elevated. The appendix was easily found and was quite dilated as noted above. There was no evidence of acute or chronic inflammation. The mesoappendix was exposed and then dissection was carried out in the mesoappendix. This was done primarily with cautery. The appendiceal artery seemed to be large. It was left in place and the dissection was continued until the base of the appendix had been skeletonized. No other significant vessels were noted in the mesoappendix. Further dissection of the appendiceal artery showed it to not be quite as large as I expected. It was securely clipped and divided. I then used a Vicryl endoloop to ligate the appendiceal artery near its base. Any extra appendiceal artery stump was removed. I then turned my attention to the base of the appendix. A Vicryl endoloop was used to ligate the appendix at its base. The appendix was then amputated just above the ligature using cautery. The mucosa of the appendiceal stump was thoroughly cauterized. No appendiceal content was spilled throughout the procedure. The appendix was placed immediately in an Endo-Catch bag. It was retrieved through the 10 11 left lower quadrant trocar site. The trocar was replaced and we reviewed the areas of dissection. Some suction was carried out but there was no sign of bleeding or other abnormalities. I then used the Christiano cone and closed the fascia at the 10 11 trocar site the left lower quadrant. We evacuated CO2 and the trocar skin closure was done with 4-0 Monocryl subcuticular suture. All 3 wounds were dressed with Exofin surgical adhesive. The appendix was sent to pathology in formalin. Sponge needle counts were correct x2. Estimated Blood Loss -10 Drains No Packing No Pathology Yes (Appendix) Complications None Condition Stable Disposition PACU [facility] Billing Surgery - Charge Forward: Surgery Billing (Laparoscopic appendectomy)
[2024-08-19] MEDS: fentaNYL CITRATE INJ (*CRX) 100 MCG/2 ML VIAL 25 MCG IV PUSH ×6 (14:10→14:35)
[2024-08-19] MEDS: ONDANSETRON INJ 4 MG/2 ML VIAL IV PUSH (15:18)
[2024-08-19] MEDS: diphenhydrAMINE HCl INJ 50 MG/ML VIAL 6.25 MG IV PUSH ×2 (15:40→15:57)
[2024-08-19] MEDS: oxyCODONE HCL (*CRX) 5 MG TAB IR PO (16:30)
== END 2024-08-19 17:15 | disposition home or self-care (01) ==
PROVIDERS: PCP Family Medicine; Visit Provider Surgery
PROC: 0DTJ4ZZ Resection of Appendix, Percutaneous Endoscopic Approach (ICD-10-PCS; CPT 44970; principal; 2024-08-19 12:00)
DX: R93.3 Abnormal findings on diagnostic imaging of other parts of digestive tract (principal); K38.2 Diverticulum of appendix; G89.18 Other acute postprocedural pain; E03.9 Hypothyroidism, unspecified; E78.2 Mixed hyperlipidemia; J31.0 Chronic rhinitis; M81.0 Age-related osteoporosis without current pathological fracture; Z98.890 Other specified postprocedural states; Z86.0100 Personal history of colon polyps, unspecified; Z87.42 Personal history of other diseases of the female genital tract; Z80.42 Family history of malignant neoplasm of prostate
CPT/HCPCS: 44970; 36415; 85025; 88304; A9270; J0690; J1100; J1200; J1836; J2003; J2250; J2405; J2704; J3010; J7120

== ENCOUNTER 2024-10-22 10:20 | Outpatient (CLI) | payer MEDICARE, SELFPAY ==
--- NOTE | ~2024-10-22 | MM_ITS ---
EXAMINATION: MM screening porfirio BI w rosi HISTORY: Screening TECHNIQUE: Craniocaudal and mediolateral oblique 3-D tomosynthesis images were obtained and synthetic 2-D images were generated. CAD analysis was submitted and interpreted. COMPARISON: Comparison to multiple prior studies sequentially, with oldest reviewed study dated 04/25. BREAST PARENCHYMAL COMPOSITION: Dense: The breasts are heterogeneously dense, which may obscure small masses FINDINGS: There is no evidence of suspicious mass, calcification, or architectural distortion to sugg est malignancy in either breast. There has been no suspicious interval change. IMPRESSION: 1. No mammographic evidence of malignancy. 2. Recommend routine screening mammography in one year. BI-RADS Category 1: Negative Reviewed, dictated and finalized at location A.
--- OUTSIDE RECORDS SUMMARY | 2024-10-22 10:36 | XMS_ITS | Clinical Summary ---
Author Organization [facility] [place] Address [address] [place] [address] Phone Care Team Providers Care Circulation Analyst Name Role Phone Mercedez Morillo MD Primary Care Provider [phone] Allergies No known active allergies Medications ibandronate [...] ORAL) Take by mouth. A ctive Insulin [place], Disposable, (Ira Pen Needle) 32 gauge x 5/32 Needle Use once daily with Forteo 100 Each 2 08/14/2021 3:04 PM CDT 1 Active Insulin [place], Disposable, (Unifine Pentips Plus) 31 gauge x [...] daily. 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 30 mL 11 10/14/2022 11:39 AM CDT 2 Active levothyroxine 50 mcg tablet Take 1 Tablet (50 mcg) by mouth daily. 30 Tablet 7 07/18/2022 2:04 PM GLASS CYLINDER FLANGER 2 Active levothyroxine 50 mcg tablet Take 1 tablet (50 mcg total) by mouth research and development manager before breakfast 90 Tablet 3 04/13/2023 12:54 PM GLASS CYLINDER FLANGER 3 Active teriparatide (Forteo) 20 mcg/dose (600mcg/2.4mL) pen Inject 0.08 mL (20 mcg total) under the skin research and development manager before breakfast 7.2 mL 3 11/20/2022 11:11 AM CDT 3 Active Insulin [place], Disposable, (Pen Needle) 32 gauge x 5/32 [...] PO 9 Tablet 3 04/29/2023 12:54 PM GLASS CYLINDER FLANGER 3 Active SUMAtriptan (IMITREX) 100 mg tablet [...] weekly. 42.5 Gram 3 04/25/2024 11:14 AM GLASS CYLINDER FLANGER 4 Active azelastine (ASTELIN) 137 mcg/actuation nasal spray [place] 1 [place] in each nostril every 12 hours. 30 mL 11 08/20/2024 4:52 PM CDT 4 Active SUMAtriptan (IMITREX) 100 mg tablet Take 1 Tablet (100 mg) by mouth as needed at onest of headache. If no relief, may repeat with another tablet after at least 2 hours. Max doseage: 2 tablets/24 hours 9 Tablet 3 10/08/2024 1:18 PM CDT 4 Active levothyroxine 50 mcg tablet Take 1 Tablet (50 mcg) by mouth daily in the morning BEFORE BREAKFAST. 90 Tablet 3 10/08/2024 1:18 PM CDT 5 Active psyllium (Hydrocil) Powder 1 tbsp orally daily; mix into at least 8 oz of water or juice before administering 300 Gram 5 Active ibuprofen (MOTRIN) 600 mg tablet Take 1 Tablet (600 mg) by mouth every 6 hours as needed for pain. 14 Tablet 08/19/2024 5:47 PM CDT 5 Active oxyCODONE-acet aminophen (PERCOCET) 5-325 mg tablet Take 1/2 to 1 tablet by mouth every 4 hours As Needed for pain 10 Tablet 08/19/2024 5:47 PM CDT 5 Active ondansetron (ZOFRAN ODT) 4 mg Tablet, Rapid Dissolve Dissolve 1 Tablet (4 mg) by mouth every 6 hours as needed for nausea and vomiting. 8 Tablet 08/20/2024 4:52 PM CDT 5 Active Active Problems Patient Care Coordination No te Formatting of this note migh t be different from the original. 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 Gender Identity Not on file Sexual Orientation Not on file Last Filed Vital Signs Vital Sign Reading Time Taken Comments Blood Pressure 108/61 04/06/2013 3:03 PM GLASS CYLINDER FLANGER Pulse 76 04/06/2013 3:03 PM GLASS CYLINDER FLANGER Temperature - - Respiratory Rate - - Oxygen Saturation - - Inhaled Oxygen Concentration - - Weight 61.7 kg (136 lb) 04/06/2013 3:03 PM GLASS CYLINDER FLANGER Height 172.7 cm (5' 8) 04/06/2013 3:03 PM GLASS CYLINDER FLANGER Body Mass Index 20.68 04/06/2013 3:03 PM GLASS CYLINDER FLANGER Plan of Treatment Health Maintenance Due Date [...] OR WO CAD Routine 04/06/2013 2:47 PM GLASS CYLINDER FLANGER Breast mass from Last 3 Months or Most Recently Relevant to Health Maintenance Results * MAMMO DIGITAL DIAG UNI RIGHT (04/06/2013 2:47 PM GLASS CYLINDER FLANGER) Anatomical Region Laterality Modality Breast Right Mammography 04/06/2013 2:46 PM GLASS CYLINDER FLANGER Narrative 04/07/2013 7:32 PM GLASS CYLINDER FLANGER RIGHT BREAST FULL FIELD DIGITAL DIAGNOSTIC MAMMOGRAM [...] Most Recently Relevant to Health Maintenance Insurance [employer] [facility] [place] OPEN ACCESS RX [employer] PLANS (INTERNAL) [facility] RX [employer] Medicare Part D Care Teams Circulation Analyst Relationship Specialty Start Date End Date Mercedez Morillo MD [address] [place] [id number] PCP - General Family Practice 04/06/13
--- OUTSIDE RECORDS SUMMARY | 2024-10-22 10:36 | XMS_ITS | Encounter Summary ---
Author Organization [facility] Address [address] [place] [address] Care Team Providers Care Felt Finisher Name Role Phone Mercedez Morillo MD Primary Care Provider [phone] Reason for Visit * Reason Comments Injections * Episode Based Medications (Routine) - Authorized Specialty Diagnoses / Procedures Referred By Contac t Referred To Contact Diagnoses Other osteoporosis without current pathological fracture Robert Berry MD [address] [facility] [address] [place] [address] Phone: tel: fax: [address] [place] [phone] Phone: tel: Referral ID Status Reason Start Date Expiration Date V isits Requested Visits Authorized [id number] Authorized 10/01/2023 06/06/2025 4 4 Encounter Details Date Type Department Care Team (Latest Contact Info) Description 10/21/2024 2:00 PM CDT Clinical Support [address] [place] [phone] Other osteoporosis without current pathological fracture (Primary Dx) Social History Tobacco Use Types Packs/Day Years Used Date Smoking Tobacco: Never Smokeless Tobacco: Never Alcohol Use Standard Drinks/Week Comments Yes 0 (1 standard drink = 0.6 oz pur e alcohol) AUDIT-C Answer Date Recorded Q1: How often do you have a drink containing alc ohol? Monthly or less 09/01/2024 Q2: How many drinks containi ng alcohol do you have on a typical day when you are drinking? 1 or 2 09/01/2024 Q3: How often do you have si x or more drinks on one occasion? Never 09/01/2024 PHQ-2 Answer Date Recorded PHQ-2 Total Score (If total score is 3 or more points, staff should administer the PHQ-9) 0 08/29/2020 Personal Safety Answer Date Recorded Have you ever been in or are you currently in a harmful physical or emotional relationship or is someone making you feel afraid or unsafe? 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 Gender Identity Female 08/22/2020 9:50 AM CDT Sexual Orientation Straight 08/22/2020 9: 50 AM CDT documented as of this encounter Last Filed Vital Signs Vital Sign Reading Time Taken Comments Blood Pressure 102/64 10/21/2024 2:11 PM CDT Pulse 73 10/21/2024 2:11 PM CDT Temperature 36.6 C (97.9 F) 10/21/2024 2:11 PM CDT Respiratory Rate 16 10/21/2024 2:11 PM CDT Oxygen Saturation 96% 10/21/2024 2:11 PM CDT Inhaled Oxygen Concentration - - Weight - - Height - - Body Mass Index - - documented in this encounter Nursing Notes * Babita Sosa RN - 10/21/2024 2:00 PM CDT Pt here for Prolia as ordered by Calcium level was 8.9 on 08/03/2024 at [facility] according to pts records on her [facility] portal Yari Grubbs [facility] was informed and stated Prolia may be given as ordered. Prolia given as noted in MAR. Next appointment given. documented in this encounter Plan of Treatment Not on file documented as of this encounter Visit Diagnoses Diagnosis Other osteoporosis without current pathological fracture- Primary documented in this encounter Administered Medications Inactive Administered Medications - up to 3 most recent administrations Medication Order MAR Action Action Date Dose Rate Site denosumab (PROLIA) subcutaneous syringe 60 mg 60 mg, subcutaneous, Once, On [place] 10/21/24 at 1445, For 1 dose, Calcium level should be greater than 8 mg/dl. Injection to be given in the upper arm, thigh or abdomen. Refrigerate. Allow to stand 15 to 30 mins prior to useIndications:Other osteoporosis without current pathological fracture Given 10/21/2024 2:21 PM CDT 60 mg Right Upper Arm documented in this encounter Orders Medications Ordered That Osmar ht Not Have Been Administered Count Last Ordered Date First Ordered Date denosumab (PROLIA) subcutane ous syringe 60 mg 1 10/21/2024 documented in this encounter Care Teams Felt Finisher Relationship Specialty Start Date End Date Mercedez Morillo MD PCP - General 08/26/16 documented as of this encounter
--- OUTSIDE RECORDS SUMMARY | 2024-10-22 10:36 | XMS_ITS | Referral Summary ---
Author Organization [facility] Address [address] [place] [address] Care Team Providers Care Product Coordinator Name Role Phone Mercedez Morillo MD Primary Care Provider [phone] Encounters Date Type Department Care Team Description 10/21/2024 2:00 PM CDT Clinical Support [address] [place] [address] Other osteoporosis without current pathological fracture (Primary Dx) 10/11/2024 1:05 PM CDT Ancillary Procedure [facility] Imaging at [address] [phone] Acute right ankle pain 10/11/2024 1:00 PM CDT Office Visit [facility] Sports Medicine and Primary Care at [address] [place] [address] Sherman Alexandra DO Acute right ankle pain (Primary Dx) 09/30/2024 Telephone [facility] Orthopedics and Sports Medicine [address] [place] [address] [address] [address] Sherman Alexandra DO 09/29/2024 11:40 AM CDT Ancillary Procedure [facility] Imaging at [address] [address] Acute right ankle pain 09/29/2024 11:15 AM CDT Office Visit [facility] Convenient Care at [address] [address] Lincoln Garces NP Acute right ankle pain (Primary Dx) 09/01/2024 12:14 PM CDT Anesthesia Event [facility] [address] [place] [phone] Travis Cortez MD Bowers, Bart Steven, CRNA 09/01/2024 12:00 PM CDT - 09/01/2024 1:00 PM CDT Surgery [facility] [address] [place] [phone] Wil Lai MD ESOPHAGOGASTRODUODENOSCOPY ULTRASOUND EXAM LIMITED 09/01/2024 10:51 AM CDT - 09/01/2024 1:28 PM CDT Hospital Encounter [facility] [address] [place] [phone] Wil Lai MD Pancreatic lesion Discharge Disposition: Discharge to home or self care 08/24/2024 Telephone [facility] Gastroenterology [facility] Medical Office Building [address], [address] [place] [address] Mona Shannon LPN GI Preprocedure 08/24/2024 Orders Only [facility] [address] [place] [phone] Jaylan Matta MD IPMN (intraductal papillary mucinous neoplasm) (Primary Dx) 08/18/2024 Telephone [facility] [address], [place] [address] Eva Carrillo LPN 08/18/2024 10:35 AM CDT - 08/18/2024 11:59 PM CDT Hospital Encounter [facility] [address] [place] [address] Pancreatic cyst Discharge Disposition: Discharge to home or self care 08/05/2024 Orders Only [facility] [address] [place] [phone] Jaylan Matta MD Pancreatic cyst (Primary Dx) 08/03/2024 3:27 PM CDT - 08/03/2024 11:59 PM CDT Hospital Encounter [facility] [id number] [place] [address] Family history of pituitary disease Discharge Disposition: Discharge to home or self care 08/03/2024 3:15 PM CDT Lab [facility] Outpatient Lab at [address] [address] Vitamin D deficiency (Primar y Dx) 07/29/2024 Orders Only [facility] Specialists of [address] [address] Jaylan Matta MD Family history of pituitary disease (Primary Dx) from Last 3 Months Allergies Active Allergy Reactions Criticality Noted Date Comments Amoxicillin Latex Rash Medium 09/01/2024 Poison Coco Extract Rash Medium 12/11/2022 Prednisone [...] differently: 600 mg oral Daily, Reported on 10/11/2024 SUMAtriptan (IMITREX) 100 mg tablet Active turmeric [...] 1 tablet (50 mcg total) by mouth emergency department nurse before breakfast 90 tablet 3 5 Active Active Problems Problem Noted Date Diagnosed Date Pancreatic lesion 08/24/2024 Uterovaginal prolapse 01/30/2022 Assessment & Plan (10/09/2023 5:01 PM CDT): -currently managed with #3 Ring, she is happy with support and would like to continue with conservative management. -continue pessary self management, she leaves out nightly. -continue twice weekly VET -she will return in 12 months for pessary check Assessment & Plan (05/13/2022 5:21 PM PUTTY AND CAULKING SUPERVISOR): -currently managed with #3 Ring -discussed trial [...] 06/28/2021 Assessment & Plan (07/18/2022 4:16 PM PUTTY AND CAULKING SUPERVISOR): Continue Levothyroxine 50 mcg daily Assessment & Plan (06/28/2021 12:28 PM PUTTY AND CAULKING SUPERVISOR): With hypercholesterolemia Will start LT4 50 mcg daily, which can help to lower cholesterol Recheck TSH, FT4 in 3 m Vitamin D deficiency 06/28/2021 Assessment & Plan (07/08/2023 12:51 PM PUTTY AND CAULKING SUPERVISOR): Chronic, well controlled UD 25 OH vit D levels Will adjust vit D dose if indicated Assessment & Plan (06/28/2021 12:30 PM PUTTY AND CAULKING SUPERVISOR): Check vit D levels Adjust dose of vit D accordingly Family history of pituitary disease 09/02/2017 Osteoporosis 05/04/2013 Overview (08/29/2016): Osteoporosis Assessment & Plan (07/08/2023 12:50 PM PUTTY AND CAULKING SUPERVISOR): Chronic , well controlled Prolia very 6 [...] calcium Assessment & Plan (07/18/2022 4:18 PM PUTTY AND CAULKING SUPERVISOR): Continue Forteo. Continue Ca and vit D After completing 2 years of Forteo, in December, will consider starting Prolia Assessment & Plan (06/28/2021 12:27 PM PUTTY AND CAULKING SUPERVISOR): Continue Forteo Weight bearing exercise Calcium and [...] disease Assessment & Plan (07/08/2023 12:51 PM PUTTY AND CAULKING SUPERVISOR): Chronic, well controlled UD TFTs Continue Levothyroxine [...] on file Legal Sex Female 11:14 AM PUTTY AND CAULKING SUPERVISOR Gender Identity Female 08/22/2020 9:50 AM CDT [...] CDT Inhaled Oxygen Concentration - - Weight 65.8 kg (145 lb) 10/11/2024 1:13 PM CDT Height 170.2 cm (5' 7) 10/11/2024 1:13 PM CDT Body Mass Index 22.71 10/11/2024 1:13 PM CDT Plan of Treatment Not on file Procedures Procedure Name Priority Date/Time Associated Diagnosis Comments XR ANKLE RIGHT 3 OR MORE VIEWS Schedule Routine, Read Routine (OP Routine) 10/11/2024 1:05 PM CDT Acute right ankle pain XR ANKLE RIGHT 3 OR MORE VIEWS Schedule DILCIA, Read DILCIA (Appt Today, Awaiting Results) 09/29/2024 11:41 AM CDT Acute right ankle pain US ENDOSCOPIC IP Routine 09/01/2024 12:40 PM CDT Pancreatic lesion ESOPHAGOGASTRODUODENOSCOPY ULTRASOUND EXAM LIMITED 09/01/2024 12:15 PM CDT Pancreatic lesion UPPER EUS 09/01/2024 12:12 PM CDT MRI ABDOMEN PANCREAS W WO CONTRAST Schedule Routine, Read Routine (OP Routine) 08/18/2024 11:36 AM CDT Pancreatic cyst BLOOD MISC TO [place] Routine 08/03/2024 3:27 PM CDT CHROMOGRANIN A Routine 08/03/2024 3:27 PM CDT Family history of pituitary disease GASTRIN Routine 08/03/2024 3:27 PM CDT Family history of pituitary disease DEXA TBS AXIAL SKELETON BONE DENSITY 1 OR MORE SITES Schedule Routine, Read Routine (OP Routine) 03/03/2023 10:04 AM CDT Osteoporosis, unspecified osteoporosis type, unspecified pathological fracture presence from Last 3 Months or Most Recently Relevant to Health Maintenance Results * XR Ankle Right 3 or More Views (10/11/2024 1:05 PM CDT) Anatomical Region Laterality Modality Lower Extremities, Ankle Right Digital Radiography 10/12/2024 10:4 4 AM CDT Narrative 10/12/2024 10:45 AM CDT EXAM DESCRIPTION: XR ANKLE RIGHT 3 OR MORE VIEWS REASON FOR STUDY: pain Two week follow up medial malleolus avulsion fracture. TECHNIQUE: 3 radiographic view(s) of the right ankle. COMPARISON: Right ankle radiographs 09/29/2024 FINDINGS: BONES/JOINTS: Decreased bone mineralization. Again seen is small avulsion fracture adjacent to the medial malleolar tip. No new fracture is seen. The ankle mortise is congruent. SOFT TISSUES: No soft tissue swelling or radiopaque foreign body. OTHER: No other acute abnormality. IMPRESSION: Small avulsion fracture at the medial malleolar tip as on prior. THIS IS AN ELECTRONICALLY VERIFIED FINAL REPORT 10/12/2024 10:45 AM - Electronically signed by Willian Cooper M.D. T: Report ID: [id number] Reading Location: [id number] Procedure Note Willian Cooper MD - 10/12/2024 EXAM DESCRIPTION: XR ANKLE RIGHT 3 OR MORE VIEWS REASON FOR STUDY: pain Two week follow up medial malleolus avulsion fracture. TECHNIQUE: 3 radiographic view(s) of the right ankle. COMPARISON: Right ankle radiographs 09/29/2024 FINDINGS: BONES/JOINTS: Decreased bone mineralization. Again seen issmall avulsion fracture adjacent to the medial malleolar tip. No new fractureis seen. The ankle mortise is congruent. SOFT TISSUES: No soft tissue swelling or radiopaque foreign body. OTHER: No other acute abnormality. IMPRESSION: Small avulsion fracture at the medial malleolar tip as onprior. THIS IS AN ELECTRONICALLY VERIFIED FINAL REPORT 10/12/2024 10:45 AM - Electronically signed by Willian Cooper M.D. JR T: Report ID: [id number] Reading Location: [id number] us Sherman Alexandra DO IMG XR PROCEDURES Poonam l Result * XR Ankle Right 3 or More Views (09/29/2024 11:41 AM CDT) Anatomical Region Laterality Modality Lower Extremities, Ankle Right Digital Radiography 09/29/2024 11:5 0 AM CDT Narrative 09/29/2024 12:07 PM CDT EXAM DESCRIPTION: XR ANKLE RIGHT 3 OR MORE VIEWS REASON FOR STUDY: accidental fall, tripped on cord and twisted ankle 2 days ago Pt complains of lateral right ankle pain after twisting it and falling yesterday. No prior fx or surgery TECHNIQUE: 3 radiographic view(s) of the right ankle . COMPARISON: None FINDINGS: BONES/JOINTS: Acute avulsion fracture of the medial malleolus. Small ankle joint effusion. SOFT TISSUES: Mild soft tissue swelling of the ankle. IMPRESSION: Acute avulsion fracture of the right medial malleolus. THIS IS AN ELECTRONICALLY VERIFIED FINAL REPORT 09/29/2024 12:07 PM - Electronically signed by Lia Patel M.D. FT T: Report ID: [id number] Reading Location: [id number] Procedure Note Lia Rodrigues MD - 09/29/2024 EXAM DESCRIPTION: XR ANKLE RIGHT 3 OR MORE VIEWS REASON FOR STUDY: accidental fall, tripped on cord and twisted ankle 2days ago Pt complains of lateral right ankle pain after twisting it and falling yesterday. No prior fx or surgery TECHNIQUE: 3 radiographic view(s) of the right ankle . COMPARISON: None FINDINGS: BONES/JOINTS: Acute avulsion fracture of the medial malleolus. Small ankle joint effusion. SOFT TISSUES: Mild soft tissue swelling of the ankle. IMPRESSION: Acute avulsion fracture of the right medial malleolus. THIS IS AN ELECTRONICALLY VERIFIED FINAL REPORT 09/29/2024 12:07 PM - Electronically signed by Lia Patel M.D. 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 Providers: Wil Lai M.D. Referring MD: Jaylan Matta M.D. Medicines: Monitored Anesthesia Care Complications: No immediate complications. Estimated blood loss:None. Estimated Blood Loss: Estimated blood loss: none. Procedure: Pre-Anesthesia Assessment: - The risks and benefits of the procedure and the sedation options and risks were discussed with the patient. All questions were answered and informed consent was obtained. - Immediately prior to administration ofmedications, the patient was re-assessed for adequacy to receive sedatives. - The anesthesia plan was to use monitoredanesthesia care (MAC). The risks, benefits and alternatives were discussed and informed consent was obtained.The Endosonoscope was introduced through the mouth, and advanced tothe second part of duodenum The Endoscope wasintroduced through the mouth, and advanced to the second partof duodenum The upper EUS was accomplished without difficulty. The patient tolerated the procedurewell. Findings: ENDOSCOPIC FINDING: : The examined esophagus was normal. The entire examined stomach was normal. The examined duodenum was normal. ENDOSONOGRAPHIC FINDING: : The esophagus, stomach and duodenum were visualizedendosonographically. There were multiple anechoic cystic lesions noted in the pancreatic head/neck and distal pancreatic body. The largest lesions were 10mmin the neck with adjoining 7mm cyst in the neck/uncinate with single septation. There were no mural nodules or associated mass lesions.The cysts were associated with non-dilated branch pancreatic duct (1mm).The overall appearance is most consistent with branch duct IPMN. Therewere no other solid mass lesion suggestive of a NET. The remainder of the pancreatic parenchyma was normal and the pancreatic duct non-dilatedat 1-2mm. There was no sign of significant endosonographic abnormality in the common bile duct. There was no sign of significant endosonographic abnormality in the ampulla. The region of the celiac plexus and celiac ganglia was visualized and showed no sign of significant endosonographic abnormality. Thevascular anatomy of the region was normal. Impression: EGD: - Normal esophagus, stomach, and duodenum. EUS: - There were multiple anechoic cystic lesions notedin the pancreatic head/neck and distal pancreaticbody. The largest lesions were 10mm in the neck with adjoining 7mm cyst in the neck/uncinate with single septation. There were no mural nodules orassociated mass lesions. The cysts were associated with non-dilated branch pancreatic duct (1mm). Theoverall appearance is most consistent with branch ductIPMN. There were no other solid mass lesion suggestive ofa NET. The remainder of the pancreatic parenchyma was normal and the pancreatic duct non-dilated at1-2mm. - There was no sign of significant pathology in the common bile duct. - There was no sign of significant pathology in the ampulla. Recommendation: - Observe patient's clinical course followingtoday's EGD/EUS. - Repeat MRI/MRCP for screening of pancreatic cystsin 1 year. This can be coordinated through Dr. Matta's office per patient's preference. If additional surveillance/screening is required from a ?MEN perspective, would defer to Endocrinology. - Resume home medications and diet. - Return to primary care physician as previously scheduled. - In the unusual situation that you developabdominal pain, bleeding or other significant problems in the days following this procedure please call my officeat [phone] ([phone]) to speak to my nurses. After hours and evenings please call [phone] speak to the GI fellow salmon troll fisher. Please tell themthat Dr. Lai did your procedure and that your were instructed to have the fellow call me or thephysician covering for me to discuss the management of your condition. If you have an urgent problem, please goto the nearest emergency room and have the ER doctorcall my office during the day or [facility] transfer ([phone]) center after hours and weekends to arrange admission or transfer to our facility. Attending Participation: I personally performed the entire procedure. Electronically Signed By: Wil Lai M.D. Wil Lai M.D. 09/01/2024 12:46:00 PM This document was signed electronically. Number of Addenda: 0 Note Initiated On: 09/01/2024 12:12 PM Scope In: Scope Out: Wil Lai MD ENDOSCOPY PROCEDURES Final Result * MRI Abdomen Pancreas W WO Contrast (08/18/2024 11:36 AM CDT) Anatomical Region Laterality Modality Body N/A Magnetic Resonan ce 08/24/2024 8:23 AM CDT Narrative 08/24/2024 8:32 AM CDT EXAM DESCRIPTION: MRI ABDOMEN PANCREAS W WO CONTRAST REASON FOR STUDY: family hx of MEN 1. Pancreatic lesion on CT of [facility] abdomen In June 2024 went to the hospital with stomach pain , the findings were lesions on the pancreas , no symptoms as of today, no surgery TECHNIQUE: MRI of the abdomen performed without and with intravenous contrast according to the pancreas protocol. All images stored on PACS. 3D MIP images rendered on scanning unit and reviewed at time of interpretation. CONTRAST TYPE/DOSE: 12mL of GADOTERATE MEGLUMINE 0.5 MMOL/ML INTRAVENOUS SOLUTION (SO) injected via intravenous COMPARISON: None FINDINGS: The exam is suboptimal due to motion artifact, particularly on the MRCP sequences. LOWER CHEST: The heart size is normal. There is no definite evidence of pericardial effusion. Visualized lung bases are grossly clear. LIVER: The liver is grossly normal in size and contour. There is a cyst noted in the right hepatic lobe measuring 0.6 cm, which does not require follow-up imaging (axial T2 image 11). The hepatic and portal veins are grossly patent. GALLBLADDER: The gallbladder appears grossly unremarkable without evidence of cholelithiasis, gallbladder wall thickening, or pericholecystic fluid. BILE DUCTS: There is no definite evidence of intrahepatic or extrahepatic biliary ductal dilatation. The common bile duct measures 0.4 cm in diameter. There is no definite evidence of filling defect within the common bile duct to suggest choledocholithiasis, however there is suboptimal evaluation due to extensive motion artifact on the MRCP sequences. SPLEEN: The spleen is grossly normal in size and unremarkable. PANCREAS: There is pancreatic divisum. The pancreatic duct measures 0.2 cm in diameter. There is no definite evidence of peripancreatic inflammatory changes or peripancreatic fluid collection. There is lobulated septated cystic lesion noted in the pancreatic neck measuring 1.4 by 1.0 cm containing multiple thin septations without definite evidence of enhancing mural nodularity (coronal T2 image 15). There is a lobulated septated cystic lesion in the pancreatic body measuring 1.5 by 0.7 cm containing multiple enhancing septations without definite evidence of enhancing mural nodularity (coronal T2 image 16). There is a mildly lobulated cystic lesion in the pancreatic head/uncinate process measuring 1.1 by 0.8 cm containing a few enhancing septations without definite evidence of enhancing mural nodularity (coronal T2 image 15). There is a elongated mildly lobulated cystic lesion in the pancreatic body measuring 1.0 by 0.5 cm containing a thin enhancing septation without definite evidence of enhancing mural nodularity (coronal T2 image 15). There are several additional subcentimeter cystic lesions noted scattered throughout the pancreatic parenchyma. ADRENALS: The bilateral adrenal glands are grossly symmetrical and unremarkable. KIDNEYS/URINARY TRACT: The bilateral kidneys are grossly symmetrical in size. The bilateral kidneys enhance symmetrically. There is a 0.5 cm cyst in the lower pole of the left kidney, which does not require follow-up imaging. There is no definite evidence of hydronephrosis. GI: There is a [id number]-tr-[id number] amount of retained fecal debris in the visualized colon. The remainder of the visualized bowel appears grossly unremarkable. There is no definite evidence of free fluid in the abdomen. There is no definite MRI evidence of abdominal lymphadenopathy. MUSCULOSKELETAL: There is a dextroscoliotic curvature of the spine with degenerative changes. OTHER: No other abnormality. IMPRESSION: Suboptimal exam due to motion artifact, particularly on the MRCP sequences. Multiple cystic lesions noted involving the pancreatic parenchyma with the largest measuring up to 1.5 cm in the pancreatic body containing multiple enhancing septations without definite evidence of enhancing mural nodularity. These lesions likely represent side branch IPMNs. Follow-up MRI/MRCP in 6 months is recommended to assess for stability as clinically indicated. No definite evidence of intrahepatic or extrahepatic biliary ductal dilatation. No definite evidence of filling defect within the common bile duct to suggest choledocholithiasis, however there is suboptimal evaluation due to extensive motion artifact on the MRCP sequences. Cgzwhzci-gj-xrwcr amount of retained fecal debris in the visualized colon, which raises the concern for constipation. THIS IS AN ELECTRONICALLY VERIFIED FINAL REPORT 08/24/2024 8:32 AM - Electronically signed by Con Cagle D.O. PS: PS Report ID: [id number] Reading Location: [id number] Procedure Note Tsering Con Abel, DO - 08/24/2024 EXAM DESCRIPTION: MRI ABDOMEN PANCREAS W WO CONTRAST REASON FOR STUDY: family hx of MEN 1. Pancreatic lesion on CT of [facility] abdomen In June 2024 went to the hospital with stomach pain , the findingswere lesions on the pancreas , no symptoms as of today, no surgery TECHNIQUE: MRI of the abdomen performed without and with intravenous contrast according to the pancreas protocol. All images stored on PACS. 3D MIP images rendered on scanning unit and reviewed at time of interpretation. CONTRAST TYPE/DOSE: 12mL of GADOTERATE MEGLUMINE 0.5 MMOL/ML INTRAVENOUS SOLUTION (SO) injected via intravenous COMPARISON: None FINDINGS: The exam is suboptimal due to motion artifact, particularly on the MRCP sequences. LOWER CHEST: The heart size is normal. There is no definite evidence of pericardial effusion. Visualized lung bases are grossly clear. LIVER: The liver is grossly normal in size and contour. There is a cyst noted in the right hepatic lobe measuring 0.6 cm, which does not require follow-up imaging (axial T2 image 11). The hepatic and portal veins are grossly patent. GALLBLADDER: The gallbladder appears grossly unremarkable withoutevidence of cholelithiasis, gallbladder wall thickening, or pericholecystic fluid. BILE DUCTS: There is no definite evidence of intrahepatic orextrahepatic biliary ductal dilatation. The common bile duct measures 0.4 cm indiameter. There is no definite evidence of filling defect within the common bileduct to suggest choledocholithiasis, however there is suboptimal evaluation due to extensive motion artifact on the MRCP sequences. SPLEEN: The spleen is grossly normal in size and unremarkable. PANCREAS: There is pancreatic divisum. The pancreatic duct measures 0.2cm in diameter. There is no definite evidence of peripancreatic inflammatory changes or peripancreatic fluid collection. There is lobulated septated cystic lesion noted in the pancreatic neck measuring 1.4 by 1.0 cm containing multiple thin septations withoutdefinite evidence of enhancing mural nodularity (coronal T2 image 15). There is a lobulated septated cystic lesion in the pancreatic body measuring 1.5 by0.7 cm containing multiple enhancing septations without definite evidence of enhancing mural nodularity (coronal T2 image 16). There is a mildlylobulated cystic lesion in the pancreatic head/uncinate process measuring 1.1 by 0.8cm containing a few enhancing septations without definite evidence ofenhancing mural nodularity (coronal T2 image 15). There is a elongated mildlylobulated cystic lesion in the pancreatic body measuring 1.0 by 0.5 cm containing athin enhancing septation without definite evidence of enhancing muralnodularity (coronal T2 image 15). There are several additional subcentimeter cystic lesions noted scattered throughout the pancreatic parenchyma. ADRENALS: The bilateral adrenal glands are grossly symmetrical and unremarkable. KIDNEYS/URINARY TRACT: The bilateral kidneys are grossly symmetrical in size. The bilateral kidneys enhance symmetrically. There is a 0.5 cmcyst in the lower pole of the left kidney, which does not require follow-upimaging. There is no definite evidence of hydronephrosis. GI: There is a oczuuntv-rs-rzjdg amount of retained fecal debris in the visualized colon. The remainder of the visualized bowel appears grossly unremarkable. There is no definite evidence of free fluid in the abdomen. There is no definite MRI evidence of abdominal lymphadenopathy. MUSCULOSKELETAL: There is a dextroscoliotic curvature of the spine with degenerative changes. OTHER: No other abnormality. IMPRESSION: Suboptimal exam due to motion artifact, particularly on the MRCPsequences. Multiple cystic lesions noted involving the pancreatic parenchyma withthe largest measuring up to 1.5 cm in the pancreatic body containing multiple enhancing septations without definite evidence of enhancing muralnodularity. These lesions likely represent side branch IPMNs. Follow-up MRI/MRCP in 6 months is recommended to assess for stability as clinically indicated. No definite evidence of intrahepatic or extrahepatic biliary ductal dilatation. No definite evidence of filling defect within the common bileduct to suggest choledocholithiasis, however there is suboptimal evaluation dueto extensive motion artifact on the MRCP sequences. Drnburct-ue-gplah amount of retained fecal debris in the visualizedcolon, which raises the concern for constipation. THIS IS AN ELECTRONICALLY VERIFIED FINAL REPORT 08/24/2024 8:32 AM - Electronically signed by Con Cagle D.O. PS: PS Report ID: [id number] Reading Location: [id number] Jaylan Matta MD IMG MRI PROCEDURES Final Result * (ABNORMAL) BLOOD MISC TO [place] (08/03/2024 3:27 PM CDT) Test name, chem HPP [place] ref Lab Misc See Footnote( A) DEE LÓPEZ Comment: Test Result Flag Unit RefValue Pancreatic Polypeptide, P 436 H pg/mL <312 ADDITIONAL INFORMATION This test was developed and its performance characteristics determined by [facility] in a manner consistent with CLIA requirements. This test has not been cleared or approved by the U.S. Food and Drug Administration. Test Performed by: [facility] [place] [address] Linecasting Machine Keyboard Operator: Lucinda Renae Ph.D.; CLIA# [id number] Blood 08/03/2024 3:27 PM CDT 08/10/2024 9:36 AM CDT Narrative DEE LÓPEZ - 08/20/2024 10:22 AM CDT PANCREATIC POLYPEPTIDE Jaylan Matta MD LAB BLOOD ORDERABLES Final Resul t DEE LÓPEZ [address] Department [place] [address] [facility] * Chromogranin A (08/03/2024 3:27 PM CDT) Chromogranin A 91 <93 ng/mL [facility] Comment: ADDITIONAL INFORMATION The testing method is a homogeneous time-resolved immunofluorescent assay manufactured by [employer] and performed on the [employer]ima [employer]General Cyberneticsor Compact Plus. Values obtained with different assay [...] examination and other findings. Test Performed by: [place] [address] Linecasting Machine Keyboard Operator: Lucinda Renae Ph.D.; CLIA# [id number] Blood 08/03/2024 3:27 PM CDT 08/03/2024 9:25 PM CDT us Jaylan Matta MD LAB BLOOD ORDERABLES Final Resul t DEE LÓPEZ [address] [address] Department [place] [address] [facility] * Gastrin (08/03/2024 3:27 PM CDT) Gastrin 38 pg/mL [place] [facility] Comment: REFERENCE VALUE <100 Reference ranges valid for >= 8 hour fast. Test Performed by: [facility] [place] [address] Linecasting Machine Keyboard Operator: Lucinda Renae Ph.D.; CLIA# [id number] Blood 08/03/2024 3:27 PM CDT 08/03/2024 9:25 PM CDT us Jaylan Matta MD LAB BLOOD ORDERABLES Final Resul t DEE LÓPEZ [address] Department [place] [address] [facility] * Dexa TBS Axial Skeleton Bone Density 1 or more sites (03/03/2023 10:04 AM CDT) Anatomical Region Laterality Modality Wrist, Body N/A Radiographic Dora ging Narrative 03/03/2023 10:29 AM CDT Patient Name: Vilma Mckenzie Date of : 1955 Date of scan: 03/03/2023 Bone mineral density was performed on a [employer] Discovery Densitometer. Based on machine cross-calibration and [...] by the International Society of Clinical Densitometry. [id number] Robert Berry MD IM DXA PROCEDURES Final Re sult from Last 3 Months or Most Recently Relevant to Health Maintenance Insurance [facility] Address: [facility] [id number] [place] [address] [place] [address] [place] [address] [employer] MED[employer] Advance Directives For more information, please contact: [phone] * Full Code (Latest Code Status on File) Date Activated Date Inactivated Comments 09/01/2024 11:23 AM 09/01/2024 5:34 PM Care Teams Product Coordinator Relationship Specialty Start Date End Date Mercedez Morillo MD PCP - General 08/26/16
--- OUTSIDE RECORDS SUMMARY | 2024-10-22 10:36 | XMS_ITS | Clinical Summary ---
Author Organization [facility] [address] [place] [address] [place] Address [address] [place] [address] Care Team Providers Care Bleacher Operator Name Role Phone Mercedez Morillo MD Primary Care Provider [phone] Allergies Active Allergy Reactions Criticality Noted Date [...] (50 mcg total) by mouth early childhood services coordinator before breakfast 90 tablet 3 5 Active [...] check Assessment & Plan (05/13/2022 5:21 PM DECKHAND OYSTER DREDGE): -currently managed with #3 Ring -discussed trial [...] 06/28/2021 Assessment & Plan (07/18/2022 4:16 PM DECKHAND OYSTER DREDGE): Continue Levothyroxine 50 mcg daily Assessment & Plan (06/28/2021 12:28 PM DECKHAND OYSTER DREDGE): With hypercholesterolemia Will start LT4 50 mcg daily, which can help to lower cholesterol Recheck TSH, FT4 in 3 m Vitamin D deficiency 06/28/2021 Assessment & Plan (07/08/2023 12:51 PM DECKHAND OYSTER DREDGE): Chronic, well controlled UD 25 OH vit D levels Will adjust vit D dose if indicated Assessment & Plan (06/28/2021 12:30 PM DECKHAND OYSTER DREDGE): Check vit D levels Adjust dose of vit D accordingly Family history of pituitary disease 09/02/2017 Osteoporosis 05/04/2013 Overview (08/29/2016): Osteoporosis Assessment & Plan (07/08/2023 12:50 PM DECKHAND OYSTER DREDGE): Chronic , well controlled Prolia very 6 [...] calcium Assessment & Plan (07/18/2022 4:18 PM DECKHAND OYSTER DREDGE): Continue Forteo. Continue Ca and vit D After completing 2 years of Forteo, in December, will consider starting Prolia Assessment & Plan (06/28/2021 12:27 PM DECKHAND OYSTER DREDGE): Continue Forteo Weight bearing exercise Calcium and [...] disease Assessment & Plan (07/08/2023 12:51 PM DECKHAND OYSTER DREDGE): Chronic, well controlled UD TFTs Continue Levothyroxine [...] Description 10/21/2024 2:00 PM CDT Clinical Support [address] [place] [address] Other osteoporosis without current pathological fracture (Primary Dx) 10/11/2024 1:05 PM CDT Ancillary Procedure [facility] Imaging at [address] [phone] Acute right ankle pain 10/11/2024 1:00 PM CDT Office Visit [facility] Sports Medicine and Primary Care at [address] [place] [address] Messmer, Sherman Leonardo, DO Acute right ankle pain (Primary Dx) 09/30/2024 Telephone [facility] Orthopedics and Sports Medicine [address] [facility] [address] [place] [address] Sherman Alexandra DO 09/29/2024 11:40 AM CDT Ancillary Procedure [facility] Imaging at [address] [phone] Acute right ankle pain 09/29/2024 11:15 AM CDT Office Visit [facility] Care at [address] [phone] Lincoln Garces NP Acute right ankle pain (Primary Dx) 09/01/2024 12:14 PM CDT Anesthesia Event [facility] [address] [place] [phone] Travis Cortez MD Bowers, Bart Steven, CRNA 09/01/2024 12:00 PM CDT - 09/01/2024 1:00 PM CDT Surgery [facility] [address] [place] [phone] Wil Lai MD ESOPHAGOGASTRODUODENOSCOPY ULTRASOUND EXAM LIMITED 09/01/2024 10:51 AM CDT - 09/01/2024 1:28 PM CDT Hospital Encounter [facility] [address] [place] [phone] Wil Lai MD Pancreatic lesion Discharge Disposition: Discharge to home or self care 08/24/2024 Telephone [facility] Gastroenterology [address] [facility] Medical Office [address], [address] [place] [address] Mona Shannon LPN GI Preprocedure 08/24/2024 Orders Only [facility] [address] [place] [address] Jaylan Matta MD IPMN (intraductal papillary mucinous neoplasm) (Primary Dx) 08/18/2024 10:35 AM CDT - 08/18/2024 11:59 PM CDT Hospital Encounter [facility] [address] [place] [address] Pancreatic cyst Discharge Disposition: Discharge to home or self care 08/18/2024 Telephone [facility] [address] [place] [phone] Eva Carrillo LPN 08/05/2024 Orders Only [facility] [address] [place] [phone] Jaylan Matta MD Pancreatic cyst (Primary Dx) 08/03/2024 3:27 PM CDT - 08/03/2024 11:59 PM CDT Hospital Encounter [address] [address] Family history of pituitary disease Discharge Disposition: Discharge to home or self care 08/03/2024 3:15 PM CDT Lab [facility] Outpatient Lab at [address] [phone] Vitamin D deficiency (Primar y Dx) 07/29/2024 Orders Only [facility] [address] [address] Jaylan Matta MD Family history of pituitary disease (Primary Dx) from Last 3 Months Surgical History Surgery Date Site/Laterality Comments TONSILLECTOMY Tonsillectomy PARATHYROIDECTOMY parathyroidectomy APPENDECTOMY Medical History Medical History Date Comments History of multiple allergies Al lergies Hx Other Medical Headache, migra ine Hx Other Medical hyperparathyroi dism Hx Other Medical back pain Osteoporosis Osteoporosis Disorder of thyroid Thyroid dise ase Hx Other Medical poor circulatio n Hx Other Medical osteoarthritis PONV (postoperative nausea and vomiting) Hypothyroidism Family History Medical History Relation Name Comments [...] on file Legal Sex Female 11:14 AM DECKHAND OYSTER DREDGE Gender Identity Female 08/22/2020 9:50 AM CDT [...] 10/11/2024 1:13 PM CDT Plan of Treatment Health Maintenance Due Date Last Done Comments Breast Cancer Screening-Mammogram 1955 Colon Cancer Screening-Colonoscopy 1955 Hepatitis C Screening 1955 DTaP/Tdap/Td Vaccine (1 - Tdap) 1966 Hepatitis B Screening 1973 Pneumococcal vaccine 65+ (1 of 1 - PCV) 2005 Zoster Vaccine (1 of 2) 2005 Well Visit 65+ 2020 Depression Screening 08/29/2021 08/29/2020, 08/31/2019, 09/01/2018, Additional history exists Influenza Vaccine (Season Ended) 2025 03/03/2023, 02/24/2019, 02/26/2018 Osteoporosis Screening-Bone Density Scan 03/03/2025 03/03/2023, 01/07/2022, 12/25/2020, Additional history exists Fall Risk Assessment 09/01/2025 09/01/2024 Procedures Procedure Name Priority Date/Time Associated Diagnosis [...] AM CDT Pancreatic cyst BLOOD MISC TO [place] Routine 08/03/2024 3:27 PM CDT CHROMOGRANIN A [...] by Willian Cooper M.D. T: Report ID: [id number] Reading Location: [place] [address] Procedure Note Willian Cooper MD - 10/12/2024 [...] Willian Cooper M.D. JR T: Report ID: [id number] Reading Location: [id number] Sherman Alexandra DO IMG XR PROCEDURES [place] [...] Lia Patel M.D. FT T: Report ID: [id number] Reading Location: [id number] Procedure Note Lia Rodrigues MD - 09/29/2024 [...] - Electronically signed by Lia Patel M.D. T: Report ID: [id number] Reading Location: [id number] us Lincoln Garces INFRASTRUCTURE TECH IMG XR PROCEDURES Final Result * Upper EUS (09/01/2024 12:12 PM CDT) Anatomical Region Laterality Modality Other Narrative Procedure Note Wil Lai MD - 09/01/2024 12:12 PM CDT ENDOSCOPY LAB Patient Name: Vilma Mckenzie Procedure Date: 09/01/2024 12:12 PM Admit Type: Outpatient Room: [facility] Date of : 1955 Instrument Name: [...] following this procedure please call my officeat [phone] ([phone]) to speak to my nurses. After hours and evenings please call [phone] speak to the GI fellow asset protection representative. Please tell themthat Dr. Lai did your procedure and that your were instructed to have the fellow call me or thephysician covering for me to discuss the management of your condition. If you have an urgent problem, please goto the nearest emergency room and have the ER doctorcall my office during the day or [facility] transfer ([phone]) center after hours and weekends to arrange admission or transfer to our facility. Attending Participation: I personally performed the entire procedure. Electronically Signed By: Wil Lai M.D. Wil Lai M.D. 09/01/2024 12:46:00 PM This document was signed electronically. Number of Addenda: 0 Note Initiated On: 09/01/2024 12:12 PM Scope In: Scope Out: us Wil Lai MD ENDOSCOPY PROCEDURES Final Result * MRI Abdomen Pancreas W WO Contrast (08/18/2024 11:36 AM CDT) Anatomical Region Laterality Modality Body N/A Magnetic Resonan ce 08/24/2024 8:23 AM CDT Narrative 08/24/2024 8:32 AM CDT EXAM DESCRIPTION: MRI ABDOMEN PANCREAS W WO CONTRAST REASON FOR STUDY: family hx of MEN 1. Pancreatic lesion on [facility] of [facility] abdomen In June 2024 went to [...] evidence of hydronephrosis. GI: There is a nsbluosc-zk-yfift amount of retained fecal debris in the [...] extensive motion artifact on the MRCP sequences. Ejtrbyim-lu-qrftw amount of retained fecal debris in the visualized colon, which raises the concern for constipation. THIS IS AN ELECTRONICALLY VERIFIED FINAL REPORT 08/24/2024 8:32 AM - Electronically signed by Con Cagle D.O. PS: PS Report ID: [id number] Reading Location: [id number] Procedure Note Con Cagle, - 08/24/2024 EXAM DESCRIPTION: MRI ABDOMEN PANCREAS W WO CONTRAST REASON FOR STUDY: family hx of MEN 1. Pancreatic lesion on CT of [facility] abdomen In June 2024 went to [...] evidence of hydronephrosis. GI: There is a hjmvdftn-fr-reyfn amount of retained fecal debris in the [...] extensive motion artifact on the MRCP sequences. Qpzrgukp-wj-fyzcg amount of retained fecal debris in the visualizedcolon, which raises the concern for constipation. THIS IS AN ELECTRONICALLY VERIFIED FINAL REPORT 08/24/2024 8:32 AM - Electronically signed by Con Cagle D.O. PS: PS Report ID: [id number] Reading Location: [place] [address] Jaylan Matta MD IM MRI PROCEDURES Final Result * (ABNORMAL) BLOOD MISC TO [place] (08/03/2024 3:27 PM CDT) Test name, chem HPP [place] ref Lab Misc See Footnote( A) DEE LÓPEZ Comment: Test Result Flag Unit RefValue Pancreatic Polypeptide, P 436 H pg/mL <312 ADDITIONAL INFORMATION This test was developed and its performance characteristics determined by [facility] in a manner consistent with CLIA requirements. This test has not been cleared or approved by the U.S. Food and Drug Administration. Test Performed by: [place] [address] Fire Investigation Manager: Lucinda Renae Ph.D.; CLIA# [id number] Blood 08/03/2024 3:27 PM CDT 08/10/2024 9:36 AM CDT Narrative DEE LÓPEZ - 08/20/2024 10:22 AM CDT PANCREATIC POLYPEPTIDE us Jaylan Matta MD LAB BLOOD ORDERABLES Final Resul t DEE [address] [address] [place] [address] [facility] * Chromogranin A (08/03/2024 3:27 PM CDT) Pathologist [facility] Chromogranin A 91 <93 ng/mL [facility] Comment: ADDITIONAL INFORMATION The testing method is a homogeneous time-resolved immunofluorescent assay manufactured by [employer] and performed on the [employer] Compact Plus. Values obtained with different assay [...] examination and other findings. Test Performed by: [facility] [place] [address] Fire Investigation Manager: Lucinda Renae Ph.D.; CLIA# [id number] Blood 08/03/2024 3:27 PM CDT 08/03/2024 9:25 PM CDT us Jaylan Matta MD LAB BLOOD ORDERABLES Final Resul t Performing Organization Address [facility] de Phone Number DEE MARIBEL [address] [place] [address] [place] [facility] * Gastrin (08/03/2024 3:27 PM CDT) [facility] Signature Gastrin 38 pg/mL [place] [facility] Comment: REFERENCE VALUE <100 Reference ranges valid for >= 8 hour fast. Test Performed by: [facility] [place] [address] Fire Investigation Manager: Lucinda Renae Ph.D.; CLIA# [id number] Blood 08/03/2024 3:27 PM CDT 08/03/2024 9:25 PM CDT us Jaylan Matta MD LAB BLOOD ORDERABLES Final Resul t Performing Organization Address [facility] de Phone Number DEE MARIBEL [address] [place] [address] [place] ref [facility] * Dexa TBS Axial Skeleton Bone Density 1 or more sites (03/03/2023 10:04 AM CDT) Anatomical Region Laterality Modality Wrist, Body N/A Radiographic Dora ging Narrative 03/03/2023 10:29 AM CDT Patient Name: Vilma Mckenzie Date of : 1955 Date of scan: 03/03/2023 Bone mineral density was performed on a [employer] Discovery Densitometer. Based on machine cross-calibration and [...] by the International Society of Clinical Densitometry. [id number] Robert Berry MD IM DXA PROCEDURES Final Re sult from Last 3 Months or Most Recently Relevant to Health [place] [address] [facility] [address] [facility] [address] [employer] MEDICARE Advance Directives For more information, please contact: [phone] * Full Code (Latest Code Status on File) Date Activated Date Inactivated Comments 09/01/2024 11:23 AM 09/01/2024 5:34 PM Care Teams Bleacher Operator Relationship Specialty Start Date End Date Mercedez Morillo MD PCP - General 08/26/16
--- OUTSIDE RECORDS SUMMARY | 2024-10-22 10:36 | XMS_ITS | Encounter Summary ---
Author Organization [facility] Address [address] [facility] [place] [address] Care Team Providers Care Client Technical Professional Name Role Phone Unavailable Primary Care Provider Unavailabl e Encounter Details Date Type Department Care Team (Late st Contact Info) Description 11/25/2019 Lab Requisition [facility] [address] [place] [phone] Venkatesh Woodson MD [address] [place] [address] Social History Tobacco Use Types Packs/Day Years Used Date Smoking Tobacco: Never Assessed Comments Unknown Sex and Gender Information Value Date Recorded Sex Assigned at Not on file Legal Sex Female 9:12 AM CDT Gender Identity Not on file Sexual Orientation Not on file documented as of this encounter Plan of Treatment Not on file documented as of this encounter Procedures Procedure Name Priority Date/Time Associated Diagnosis Comments DERMATOPATHOLOGY Routine 11/23/2019 12:0 0 AM CDT documented in this encounter Results * DERMATOPATHOLOGY (11/23/2019 12:00 AM CDT) Case Report Dermatopathology Report Case: [id number] Authorizing Provider: Venkatesh Woodson MD Collected: 11/23/2019 12:00 AM Ordering Location: [facility] Received: 11/25/2019 10:45 AM Pathologist: Nicole Gerardo MD Specimen: Skin, right upper buttock 0 1:12 PM CDT DERMATOPATHOLOGY LABORATORY Final Diagnosis Specimen A. 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 Path # [id number]. 0 1:12 PM CDT DERMATOPATHOLOGY LABORATORY Gross Description Specimen A: Received is one formalin filled container labeled with the patient's name and designated right upper buttock. The specimen consists of a shave biopsy measuring 1z4n6mo. Jar 0. 0 1:12 PM CDT DERMATOPATHOLOGY [...] characteristic determined by the Dermatopathology Laboratory at [facility], directed by Dr. Virgie Martinez. These tests need not be, and therefore are not, approved by the [place] Food and Drug Administration. The tests are used for clinical purposes. Billing Codes Specimen Charges Stain Charges 69242 1 0 1:12 PM CDT DERMATOPATHOLOGY LABORATORY Embedded Images 0 1:12 PM CDT DERMATOPATHOLOGY LABORATORY Pathology/Cytolog y TISSUE SPECIMEN FROM SKIN / Unknown 11/23/2019 11/25/2019 10:45 AM CDT us Venkatesh Woodson MD LAB - PATHOLOGY/CYTOLOGY ORDER UDAY Final Result DERMATOPATHOLOGY LABORATORY [facility] - Department of Dermatology [facility]/[address] [address], [facility] [phone] documented in this encounter Visit Diagnoses Not on filedocumented in this encounter
--- OUTSIDE RECORDS SUMMARY | 2024-10-22 10:36 | XMS_ITS | Encounter Summary ---
Author Organization [facility] Address [address] [place] [address] Phone Care Team Providers Care Gas Well Pumper Name Role Phone Mercedez Morillo MD Primary Care Provider [phone] Encounter Details Date Type Department Care Team (Late st Contact Info) Description 03/03/2023 Treatment [facility] [address] [facility] Advanced Medicine 5th [place] [address] [place] [address] Robert Berry MD [address] [facility] [address] [place] [address] Social History Tobacco Use Types Packs/Day Years [...] on file Legal Sex Female 11:14 AM 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
--- OUTSIDE RECORDS SUMMARY | 2024-10-22 10:36 | XMS_ITS | Clinical Summary ---
Author Organization [facility] Address [address] [facility] [place] [address] Care Team Providers Care Sound Engineer Name Role Phone Unavailable Primary Care Provider Unavailabl e Source Comments [facility] [employer],non-owned Affiliates and Associated Physician Practices is amultiple site organization consisting of ambulatory clinics and hospital sitesin [place], [place], [place] and [place]. This disclosure is being madepursuant to the Care Everywhere program and may not contain all information available regarding this patient. Last updated 18.[facility] [employer] Social History Tobacco Use Types Packs/Day Years [...] VACCINE ( - 2023-2 5 season) 2024 DEPRESSION SCREENING 05/26/2024 MEDICARE AWV CALENDAR YEAR 2024 INFLUENZA VACCINE (Season Ended) 2025 Respiratory Syncytial Virus (RSV) Vaccine Pt: or [...] on patient's age to complete this topic Insurance [employer] [facility] MEDICARE ADV A[place] MEDICARE ADV SELF PAY NO INSURANCE Member Subscriber Plan / Payer (Ef fective for All Dates) Name:Abbey Mckenzie Member ID:Not on file Relation to Subscriber:Not on file Name:ABBEY MCKENZIE Subscriber ID:Not on file (Home) Address: [address] [place] [address] [place] [address] Payer ID:Not on file Group ID:Not on file Type:Self Pay Address: [place], [place]
== END 2024-10-22 10:21 | disposition home or self-care (01) ==
LOC: ANHIMG 10:22
PROVIDERS: PCP Family Medicine; Visit Provider Family Medicine
DX: Z12.31 Encounter for screening mammogram for malignant neoplasm of breast (principal)
CPT/HCPCS: 77063; 77067

== ENCOUNTER 2025-05-18 22:57 | Emergency (ER) | payer MEDICARE, SELFPAY ==
--- NOTE | ~2025-05-18 | XR_ITS ---
XR elbow LT 2V 05/18/2025 23:20 Indication: Left elbow pain Procedure: 3 views left elbow Comparison: No prior studies for comparison. Findings: There is a distracted olecranon process fracture with large amount of soft tissue swelling and large joint effusion. Radius is intact. Impression: 1: Distracted olecranon process fracture with large amount of associated effusion/soft tissue swelling. Reviewed, dictated and finalized at location O. ENT SCHEDULER Impression: 1: Distracted olecranon process fracture with large amount of associated effusi on/soft tissue swelling.
[2025-05-18 22:58] VITALS: BP 134/66; PULSE 89; RESP 18; TEMP 36.5; O2SAT 99
--- OUTSIDE RECORDS SUMMARY | 2025-05-18 22:59 | XMS_ITS | Clinical Summary ---
Author Organization [facility] Address [address] [place] [address] Care Team Providers Care Insurance Defense Attorney Name Role Phone Unavailable Primary Care Provider Unavailabl e Source Comments [facility] [employer],non-owned Affiliates and Associated Physician Practices is amultiple site organization consisting of ambulatory clinics and hospital sitesin [place], [place], [place] and [place]. This disclosure is being madepursuant to the Care Everywhere program and may not contain all information available regarding this patient. Last updated 18.[facility] Social History Tobacco Use Types Packs/Day Years [...] 2005 ZOSTER VACCINE (1 of 2) 2005 DEPRESSION SCREENING 05/26/2024 MEDICARE AWV CALENDAR YEAR 2024 COVID-19 VACCINE (1 - 2024-2 6 season) 2025 INFLUENZA VACCINE (#1) 2025 Respiratory Syncytial Virus (RSV) Vaccine Pt: [...] patient's age to complete this topic Insurance [facility] Address: [address] [place] [address] [facility] MEDICARE ADV AENA MEDICARE ADV SELF PAY NO INSURANCE Member Subscriber Plan / Payer (Ef fective for All Dates) Name:Abbey Mckenzie Member ID:Not on file Relation to Subscriber:Not on file Name:ABBEY MCKENZIE Subscriber ID:Not on file (Home) Address: [address] [place] [address] [place] [address] Payer ID:Not on file Group ID:Not on file Type:Self Pay Address: [place], [place]
--- OUTSIDE RECORDS SUMMARY | 2025-05-18 22:59 | XMS_ITS | Encounter Summary ---
Author Organization [facility] Address [address] [address] Care Team Providers Care Press Operator Carbon Blocks Name Role Phone Unavailable Primary Care Provider Unavailabl e Encounter Details Date Type Department Care Team (Late st Contact Info) Description 11/25/2019 Lab Requisition [facility] Derm[facility] Lab [address] [place] [address] Venkatesh Woodson MD [address] [place] [id number] Social History Tobacco Use Types Packs/Day Years [...] AM CDT) Case Report Dermatopathology Report Case: [id number] Authorizing Provider: Venkatesh Woodson MD Collected: 11/23/2019 12:00 AM Ordering Location: [facility] Received: 11/25/2019 10:45 AM Pathologist: Nicole Gerardo MD Specimen: Skin, right upper buttock 0 1:12 PM CDT DERMATOPATHOLOGY LABORATORY Final Diagnosis Specimen A. 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 Path # [id number]. 0 1:12 PM CDT DERMATOPATHOLOGY LABORATORY Gross Description Specimen A: Received is one formalin filled container labeled with the patient's name and designated right upper buttock. The specimen consists of a shave biopsy measuring [id number]. Jar 0. 0 1:12 PM CDT DERMATOPATHOLOGY [...] characteristic determined by the Dermatopathology Laboratory at [facility], directed by Dr. Virgie Martinez. These tests need not be, and therefore are not, approved by the [place] Food and Drug Administration. The tests are used for clinical purposes. Billing Codes Specimen Charges Stain Charges 40337 1 0 1:12 PM CDT DERMATOPATHOLOGY LABORATORY Embedded Images 0 1:12 PM CDT DERMATOPATHOLOGY LABORATORY Pathology/Cytolog y TISSUE SPECIMEN FROM SKIN / Unknown 11/23/2019 11/25/2019 10:45 AM CDT us Venkatesh Woodson MD LAB - PATHOLOGY/CYTOLOGY ORDER UDAY Final Result DERMATOPATHOLOGY LABORATORY [facility] - Department of Dermatology Brand Communications [place] [address], [facility] [phone] documented in this encounter Visit Diagnoses Not on filedocumented in this encounter
--- OUTSIDE RECORDS SUMMARY | 2025-05-18 22:59 | XMS_ITS | Encounter Summary ---
Author Organization [facility] Address [address] [place] [address] Phone Care Team Providers Care Platen Press Feeder Name Role Phone Mercedez Morillo MD Primary Care Provider [phone] Encounter Details Date Type Department Care Team (Late st Contact Info) Description 04/14/2025 Results Follow-Up [facility] [address] Advanced Medicine 13th [place] [address] [place] [address] Robert Berry MD [address] [facility] [address] [place], [place] [id number] Basic metabolic panel, Vitamin D 25 hydroxy, eGFR Social History Tobacco Use Types Packs/Day Years [...] on file Legal Sex Female 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 We can continue with the Prolia. RC LIFTER documented in this encounter Plan of Treatment Not on file documented as of this encounter Visit Diagnoses Not on filedocumented in this encounter Care Teams Platen Press Feeder Relationship Specialty Start Date End Date Mercedez Morillo MD PCP - General 08/26/16 documented as of this encounter
--- OUTSIDE RECORDS SUMMARY | 2025-05-18 22:59 | XMS_ITS | Clinical Summary ---
Author Organization [facility] [place] [facility] Address [address] [place] [address] Care Team Providers Care Public Information Coordinator Name Role Phone Mercedez Morillo MD Primary Care Provider [phone] Allergies Active Allergy Reactions Criticality Noted Date Comments Amoxicillin Nausea & Vomiting Medium Latex Rash Medium 09/01/2024 Poison Coco Extract Rash Medium 12/11/2022 Prednisone Agitation,Anxiety Low 12/25/2020 Sulfa Other (See comments) 01/31/2025 Assume per-siblings are. Medications azelaic acid (FINACEA) 15 % cream apply by topical route 2 times every day a thin layer to the affected area(s) 0 1 Active pimecrolimus (ELIDEL) 1 % cream apply by topical route 2 times every day a thin layer to the affected area(s) ; rub in gently and completely 0 0 3 Active calcium carbonate-ines min D3 (CALCIUM 600 WITH VITAMIN D3) 600 mg(1,500mg) -400 unit capsule 0 0 5 Active Additional Information Patient taking differently: 600 mg oral Daily, Reported on 05/02/2025 SUMAtriptan (IMITREX) 100 mg tablet Active cetirizine 10 mg capsule Take 10 mg by mouth daily Active azelastine (ASTELIN) 137 mcg (0.1 %) nasal spray 2 Active riboflavin, vitamin B2, 400 mg tablet Take 400 mg by mouth daily 3 Active denosumab (PROLIA) 60 mg/mL syringe 3 Active multivitamin (MULTI-DAY ORAL) Take by mouth Active levothyroxine (SYNTHROID) 50 mcg tablet Take 1 tablet (50 mcg total) by mouth steam heating installer before breakfast 90 tablet 3 5 Active estradioL (ESTRACE) 0.01 % (0.1 mg/gram) vaginal creamIndicatio ns:Vaginal atrophy Use 1/4th of an applicator (1 gram) twice weekly. 42.5 g 3 5 Active clobetasoL (TEMOVATE) 0.05 % cream Apply topically twice daily as needed for rash. 5 05/02/20 25 Discontin ued(Tripp nt Reported) Active Problems Problem Noted Date Diagnosed Date [...] check Assessment & Plan (05/13/2022 5:21 PM CYCLING INSTRUCTOR): -currently managed with #3 Ring -discussed trial [...] 06/28/2021 Assessment & Plan (07/18/2022 4:16 PM CYCLING INSTRUCTOR): Continue Levothyroxine 50 mcg daily Assessment & Plan (06/28/2021 12:28 PM CYCLING INSTRUCTOR): With hypercholesterolemia Will start LT4 50 mcg daily, which can help to lower cholesterol Recheck TSH, FT4 in 3 m Vitamin D deficiency 06/28/2021 Assessment & Plan (07/08/2023 12:51 PM CYCLING INSTRUCTOR): Chronic, well controlled UD 25 OH vit D levels Will adjust vit D dose if indicated Assessment & Plan (06/28/2021 12:30 PM CYCLING INSTRUCTOR): Check vit D levels Adjust dose of vit D accordingly Family history of pituitary disease 09/02/2017 Osteoporosis 05/04/2013 Overview (08/29/2016): Osteoporosis Assessment & Plan (07/08/2023 12:50 PM CYCLING INSTRUCTOR): Chronic , well controlled Prolia very 6 [...] calcium Assessment & Plan (07/18/2022 4:18 PM CYCLING INSTRUCTOR): Continue Forteo. Continue Ca and vit D After completing 2 years of Forteo, in December, will consider starting Prolia Assessment & Plan (06/28/2021 12:27 PM CYCLING INSTRUCTOR): Continue Forteo Weight bearing exercise Calcium and [...] disease Assessment & Plan (07/08/2023 12:51 PM CYCLING INSTRUCTOR): Chronic, well controlled UD TFTs Continue Levothyroxine [...] Encounters Date Type Department Care Team Description 05/03/2025 Telephone [facility] [address] Advanced Medicine 13th [place] [address] [place] [id number] Robert Berry MD 05/02/2025 10:40 AM CYCLING INSTRUCTOR Office Visit [facility] [address] [facility] 13th [place] [address] [place] [address] Robert Berry MD Osteoporosis, unspecified osteoporosis type, unspecified pathological fracture presence (Primary Dx) 05/02/2025 10:10 AM CYCLING INSTRUCTOR Clinical Support [facility] [address] [address], [address] [place] [address] Osteoporosis, unspecified osteoporosis type, unspecified pathological fracture presence 04/28/2025 2:00 PM CYCLING INSTRUCTOR Infusion [facility] [address] [facility] [address] [place] [address] Other osteoporosis without current pathological fracture (Primary Dx) 04/14/2025 Results Follow-Up [facility] [address] Advanced Medicine 13th [place] [address] [place] [address] Robert Berry MD Basic metabolic panel, Vitamin D 25 hydroxy, eGFR 04/13/2025 10:20 AM CYCLING INSTRUCTOR Lab [facility] [address] [place] [address] Other osteoporosis without current pathological fracture; Osteoporosis, unspecified osteoporosis type, unspecified pathological fracture presence from Last 3 Months Surgical History Surgery Date Site/Laterality Comments TONSILLECTOMY Tonsillectomy PARATHYROIDECTOMY parathyroidectomy APPENDECTOMY 08/19/24 ABDOMINAL SURGERY July 2024 Medical History Medical History Date Comments History of multiple allergies Al lergies Hx Other Medical Headache, migra ine Hx Other Medical hyperparathyroi dism Hx Other Medical back pain Osteoporosis 2010 Osteoporosis Disorder of thyroid Thyroid dise ase Hx Other Medical poor circulatio n Hx Other Medical osteoarthritis PONV (postoperative nausea and vomiting) Hypothyroidism 2009 Migraines Arthritis Migraine 1992 Fibrocystic breast 1997 Menopause ovarian failure 2009 Uterine prolapse 2018 Rh incompatibility 1987 Family History Medical History Relation Name Comments Arthritis Brother 1 M Cancer Brother 1 M Coronary artery disease Brother 1 M Katerine nary artery disease; Hyperlipidemia Brother 2 Kumar Memory loss Brother 3 Mi Clotting disorder Father Yeison Coronary artery disease Father Yeison Katerine nary artery disease; /Coronary artery disease, premature; Early Father Yeison Heart disease Father Yeison Stroke Maternal Grandfather L Rashes / Skin problems Maternal Grandmother Ines Alzheimer's disease Mother Aislinn Arthritis Mother Aislinn Clotting disorder Mother Aislinn Depression Mother Aislinn Heart disease Mother Aislinn Memory loss Mother Aislinn Miscarriages / Stillbirths Mother Aislinn Osteoarthritis Mother Aislinn Osteoporosis Mother Aislinn Osteoporosis; Stroke Mother Aislinn Mental illness Other 1 Family histor y of Mental illness; Stroke Other 2 Maternal Grandfather Family history of Stroke; Arthritis Other 3 Family history of arthritis; Cerebral palsy Sister 1 Krista Depression Sister 1 Krista Developmental delay Sister 1 Krista Arthritis Sister 2 Shari Cerebral palsy Sister 3 J Broken bones Neg Hx Hip fracture Neg Hx Kyphosis Neg Hx Scoliosis Neg Hx Relation Name Status Comments Brother 1 M Brother 2 Kumar Alive Brother 3 Mi Alive Father Yeison Alive Father's Brother Haile Alive Father's Sister Marilyn Alive Maternal Grandfather Niyah Alive Maternal Grandmother Ines Alive Mother Aislinn Alive Mother's Brother Duc Alive Mother's Sister Fanny Alive Other 1 Other 2 Maternal Grandfather Other 3 Paternal Grandfather Duc Alive Sister 1 Krista Alive Sister 2 Shari Alive Sister 3 J Alive Sister 4 Jb Alive Social History Tobacco Use Types Packs/Day Years [...] on file Legal Sex Female 11:14 AM CYCLING INSTRUCTOR Gender Identity Female 08/22/2020 9:50 AM CDT Sexual Orientation Straight 08/22/2020 9: 50 AM CDT Obstetrics History Para Term AB IAB SAB Ectopic Multiple Livin g Live Births 2 2 Date Outcome GA Total Labor Labor/2nd/3rd Weight Sex Type Anes PTL Salima A1 A5 Name Clin Para Para Last Filed Vital Signs Vital Sign Reading Time Taken Comments Blood Pressure 121/57 04/28/2025 2:04 PM CYCLING INSTRUCTOR Pulse 80 04/28/2025 2:04 PM CYCLING INSTRUCTOR Temperature 36.3 C (97.3 F) 04/28/2025 2:04 PM CYCLING INSTRUCTOR Respiratory Rate 17 04/28/2025 2:04 PM CYCLING INSTRUCTOR Oxygen Saturation 96% 10/21/2024 2:11 PM CDT Inhaled Oxygen Concentration - - Weight 61.1 kg (134 lb 12.8 oz) 025 10:44 AM CYCLING INSTRUCTOR Height 172 cm (5' 7.72) 05/02/2025 10: 44 AM CYCLING INSTRUCTOR Body Mass Index 20.67 05/02/2025 10:44 AM CYCLING INSTRUCTOR Plan of Treatment Health Maintenance Due Date Last Done Comments Breast Cancer Screening-Mammogram 1955 Colon Cancer Screening-Colonoscopy 1955 Hepatitis C Screening 1955 DTaP/Tdap/Td Vaccine (1 - Tdap) 1966 Hepatitis B Screening 1973 Pneumococcal vaccine 65+ (1 of 1 - PCV) 2005 Zoster Vaccine (1 of 2) 2005 Well Visit 65+ 2020 Depression Screening 08/29/2021 08/29/2020, 08/31/2019, 09/01/2018, Additional history exists Covid-19 Vaccine (2024-2 6 season) 2025 10/05/2021, 03/30/2021, 08/11/2020, Additional history exists Influenza Vaccine (#1) 2025 , 03/03/2023, 03/18/2022, Additional history exists Osteoporosis Screening-Bone Density Scan 03/03/2025 03/03/2023, 01/07/2022, 12/25/2020, Additional history exists Fall Risk Assessment 09/01/2025 09/01/2024 Procedures Procedure Name Priority Date/Time Associated Diagnosis Comments DEXA TBS AXIAL AND FOREARM BONE DENSITY SCAN Schedule Routine, Read Routine (OP Routine) 05/02/2025 10:32 AM CYCLING INSTRUCTOR Osteoporosis, unspecified osteoporosis type, unspecified pathological fracture presence EGFR Routine 04/13/2025 10:24 AM CYCLING INSTRUCTOR Other osteoporosis without current pathological fracture Osteoporosis, unspecified osteoporosis type, unspecified pathological fracture presence VITAMIN D 25 HYDROXY Routine 04/13/2025 10:24 AM CYCLING INSTRUCTOR Other osteoporosis without current pathological fracture Osteoporosis, unspecified osteoporosis type, unspecified pathological fracture presence BASIC METABOLIC PANEL Routine 04/13/2025 10:24 AM CYCLING INSTRUCTOR Other osteoporosis without current pathological fracture Osteoporosis, unspecified osteoporosis type, unspecified pathological fracture presence DEXA TBS AXIAL SKELETON BONE DENSITY 1 OR MORE SITES Schedule Routine, Read Routine (OP Routine) 03/03/2023 10:04 AM CDT Osteoporosis, unspecified osteoporosis type, unspecified pathological fracture presence from Last 3 Months or Most Recently Relevant to Health Maintenance Results * Dexa TBS Axial and Forearm Bone Density Scan (05/02/2025 10:32 AM CYCLING INSTRUCTOR) Anatomical Region Laterality Modality Wrist, Body N/A Radiographic Dora ging Narrative 05/02/2025 4:32 PM CYCLING INSTRUCTOR Patient Name: Vilma Mckenzie Date of : 1955 Date of scan: 05/02/2025 Bone mineral density was performed on a Hologic Discovery Densitometer. Based on machine cross-calibration and precision studies the least significant changes of this densitometer is 0.024 g/cm2 at the spine, 0.020 g/cm2 at the total proximal femur, and 0.014g/cm2 at the forearm. HISTORY: This is a 69 y.o. postmenopausal female with a history of hyperparathyroidism (post surgery), osteoporosis, and thyroid disease. She reports that she has never smoked. She has never used smokeless tobacco. Currently on treatment with calcium, vitamin D, denosumab (Prolia), and thyroid hormone, previously treated with ibandronate (Boniva), teriparatide (Forteo), and raloxifene (Evista), and current complaint of back pain. INDICATIONS: Menopause status, treatment monitoring, and history of osteoporosis. FINDINGS: BONE MINERAL DENSITY OF THE LUMBAR SPINE Bone Mineral Density (BMD) of the lumbar spine was measured from L1-L4 and the average density was calculated to be 0.900 gm/cm2. This corresponds to a T-score (standard deviations from the mean of young adults) of -1.3. When compared to the previous study of 05/03/2024 there has been a 0.033 gm/cm (3.8%) increase in bone density that is considered significant. BONE MINERAL DENSITY OF THE PROXIMAL FEMUR Bone Mineral Density (BMD) of the left hip total was found to be 0.730 gm/cm2. This corresponds to a T-score standard deviations from the mean of young adults of -1.7. Femoral neck is 0.636 gm/cm2 with a T-score (standard deviations from the mean of young adults) of -1.9. When compared to the previous study of 05/03/2024 there has been no significant changes in bone density. SUMMARY: Bone mineral density shows evidence of low bone mass at the lumbar spine and proximal femur and moderately increased fracture risk (Osteopenia). There has been a significant increase in bone density since previous measurement. There is modest dextro-curvature centered around L2-L3 and degenerative sclerosis, which may lead to overestimation of bone density at the lumbar spine. ADDITIONAL COMMENTS: Postmenopausal Women and Men Over [...] bone mineral density scan were prepared by Cat Gonzalez) AMARILYS who is accredited by the International Society of Clinical Densitometry. The overall patient assessment and scan interpretation were performed by Robert Berry M.D. who is certified by the International Society of Clinical Densitometry. [id number] Robert Berry MD [facility] DXA PROCEDURES Final Re sult * eGFR (04/13/2025 10:24 AM CYCLING INSTRUCTOR) eGFR 80 >=60 mL/min/1. 73 m2 Comment: Interpretive Data Reference Interval Normal >/= 90 mL/min/1.73m2 Mildly decreased* 60 - 89 mL/min/1.73m2 Mildly to moderately decreased 45 - 59 mL/min/1.73m2 Moderately to severely decreased 30 - 44 mL/min/1.73m2 Severely decreased 15 - 29 mL/min/1.73m2 Kidney Failure < 15 mL/min/1.73m2 *Relative to young adult level Estimated glomerular filtration rate is determined by the 2020 CKD-EPI equation recommended by the National Kidney Foundation (A Unifying Approach to GFR Estimation: Recommendations of the NKF-ASK Task Force on Reassessing the Inclusion of Race in Diagnosing Kidney Disease, JASN 2020). The CKD-EPI equation should not be used for patients with unstable renal function and has not been validated in children and those over 70. Current interpretive data was last reviewed 2021. Blood 04/13/2025 10:2 4 AM CYCLING INSTRUCTOR 04/13/2025 2:40 PM CYCLING INSTRUCTOR Robert Berry MD LAB BLOOD ORDERABLES Final Result Performing Organization Address [facility] Co de Phone Number [address] [place] [address] * Vitamin D 25 hydroxy (04/13/2025 10:24 AM CYCLING INSTRUCTOR) [facility] Vitamin D 25-OH 48.0 30.0 - 80.0 ng/mL Blood 04/13/2025 10:2 4 AM CYCLING INSTRUCTOR 04/13/2025 2:40 PM CYCLING INSTRUCTOR Robert Berry MD LAB BLOOD ORDERABLES Final Result Performing Organization Address City/[facility] Co de Phone Number [address] [place] [address] * Basic metabolic panel (04/13/2025 10:24 AM CYCLING INSTRUCTOR) [facility] Sodium 138 135 - 145 mmol/L Potassium, pl 4.6 3.3 - 4.9 mmol/L [facility] Chloride 106 97 - 110 mmol/L [facility] CO2 23 22 - 32 mmol/L [facility] Anion gap 9 2 - 15 mmol/L [facility] BUN 18 6 - 25 mg/dL [facility] Creatinine 0.80 0.60 - 1.10 mg/dL [facility] Glucose 86 70 - 199 mg/dL [facility] Comment: Interpretive Data Fasting glucose >/= 126 mg/dl is diagnostic for diabetes. Fasting is defined as no caloric intake for at least 8 hours. Fasting glucose between 100 mg/dl to 125 mg/dl is diagnostic of prediabetes. In a patient with classic symptoms of hyperglycemia or hyperglycemic crisis, a random glucose >/= 200 mg/dl is diagnostic for diabetes. In the absence of unequivocal hyperglycemia, results should be confirmed by repeat testing. The classification and Diagnosis of Diabetes Diabetes Care 202; 46: S19-S40. Current interpretive data was last revised 2022. Calcium 9.2 8.5 - 10.3 mg/dL [facility] Blood 04/13/2025 10:2 4 AM CYCLING INSTRUCTOR 04/13/2025 2:40 PM CYCLING INSTRUCTOR us Robert Berry MD LAB BLOOD ORDERABLES Final Result [facility] [address] [facility] [place] [address] * Dexa TBS Axial Skeleton Bone Density 1 or more sites (03/03/2023 10:04 AM CDT) Anatomical Region Laterality Modality Wrist, Body N/A Radiographic Dora ging Narrative 03/03/2023 10:29 AM CDT Patient Name: Vilma Mckenzie Date of : 1955 Date of scan: 03/03/2023 Bone mineral density was performed on a [employer] Discovery Densitometer. Based on machine cross-calibration and [...] by the International Society of Clinical Densitometry. [id number] Robert Berry MD IMG DXA PROCEDURES Final Re sult from Last 3 Months or Most Recently Relevant to Health Maintenance Insurance T MEDICARE T MEDICARE T MEDICARE Advance Directives For more information, please contact: [phone] * Full Code (Latest Code Status on File) Date Activated Date Inactivated Comments 09/01/2024 11:23 AM 09/01/2024 5:34 PM Care Teams Public Information Coordinator Relationship Specialty Start Date End Date Mercedez Morillo MD PCP - General 08/26/16
--- OUTSIDE RECORDS SUMMARY | 2025-05-18 22:59 | XMS_ITS | Encounter Summary ---
Author Organization [facility] Address [address] [place] [address] Phone Care Team Providers Care Forensic Nurse Name Role Phone Mercedez Morillo MD Primary Care Provider [phone] Encounter Details Date Type Department Care Team (Late st Contact Info) Description 03/03/[address] 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
--- OUTSIDE RECORDS SUMMARY | 2025-05-18 22:59 | XMS_ITS | Clinical Summary ---
Author Organization [facility] Address [address] [place] [address] Phone Care Team Providers Care Strap Sewer Name Role Phone Mercedez Morillo MD Primary Care Provider [phone] Allergies No known active allergies Medications ibandronate [...] ORAL) Take by mouth. A ctive Insulin [place], Disposable, (Ira Pen Needle) 32 gauge x 5/32 Needle Use once daily with Forteo 100 Each 2 08/14/2021 3:04 PM CDT 1 Active Insulin [place], Disposable, (Unifine Pentips Plus) 31 gauge x [...] daily. 7.2 mL 1 05/16/2022 11:40 AM ACCOUNTS PAYABLE CLERK 2 Active azelastine (ASTELIN) 137 mcg/actuation nasal spray ADMINISTER 1 SPRAY IN EACH NOSTRIL EVERY 12 HOURS. 30 mL 11 10/14/2022 11:39 AM CDT 2 Active levothyroxine 50 mcg tablet Take 1 Tablet (50 mcg) by mouth daily. 30 Tablet 7 07/18/2022 2:04 PM ACCOUNTS PAYABLE CLERK 2 Active levothyroxine 50 mcg tablet Take 1 tablet (50 mcg total) by mouth shipping and receiving operator before breakfast 90 Tablet 3 04/13/2023 12:54 PM ACCOUNTS PAYABLE CLERK 3 Active teriparatide (Forteo) 20 mcg/dose (600mcg/2.4mL) pen Inject 0.08 mL (20 mcg total) under the skin shipping and receiving operator before breakfast 7.2 mL 3 11/20/2022 11:11 AM CDT 3 Active Insulin [place], Disposable, (Pen Needle) 32 gauge x 5/32 Needle Use once daily for forteo injection 100 Each 3 11/20/2022 11:11 AM CDT 3 Active pimecrolimus (Elidel) 1 % Cream Apply to rash on trunk twice daily as directed 60 Gram 4 12/05/2022 3:02 PM CDT 3 Active azelastine [...] PO 9 Tablet 3 04/29/2023 12:54 PM ACCOUNTS PAYABLE CLERK 3 Active SUMAtriptan (IMITREX) 100 mg tablet [...] weekly. 42.5 Gram 3 04/25/2024 11:14 AM ACCOUNTS PAYABLE CLERK 4 Active azelastine (ASTELIN) 137 mcg/actuation nasal spray Strang 1 Strang in each nostril every 12 hours. 30 mL 11 12/23/2024 11:48 AM CDT 4 Active SUMAtriptan (IMITREX) 100 mg tablet Take 1 Tablet (100 mg) by mouth as needed at onest of headache. If no relief, may repeat with another tablet after at least 2 hours. Max doseage: 2 tablets/24 hours 9 Tablet 3 12/23/2024 11:48 AM CDT 4 Active levothyroxine 50 mcg tablet Take 1 Tablet (50 mcg) by mouth daily in the morning BEFORE BREAKFAST. 90 Tablet 3 04/15/2025 12:32 PM ACCOUNTS PAYABLE CLERK 5 Active psyllium (Hydrocil) Powder 1 tbsp [...] vomiting. 8 Tablet 08/20/2024 4:52 PM CDT Active clobetasoL (TEMOVATE) 0.05 % Cream Apply topically twice daily as needed for rash. 60 Gram 2 12/02/2024 12:09 PM CDT 5 Active Azelaic Acid 15 % Gel Apply to face twice daily. 50 Gram 10 5 Active estradioL (ESTRACE) 0.01% (0.1 mg/g) vaginal cream Use 1/4th of an applicator (1 gram) twice weekly. 42.5 Gram 3 12/23/2024 11:48 AM CDT 5 Active azelastine (ASTELIN) 137 mcg/actuation nasal spray Administer 1 spray in each nostril every 12 hours as needed for sinus symptoms 30 mL 03/30/2025 3:40 PM ACCOUNTS PAYABLE CLERK 5 Active Active Problems Patient Care Coordination No te Formatting of this note migh t be different from the original. Primary Care: Mercedez Morillo MD Referring Provider: Mercedez Morillo MD [address] [place] [address] Other: Problem Noted Date Diagnosed Date Breast mass, right 04/06/2013 Overview (04/06/2013): Looks benign, stable, plan continued 6 month follow-up Encounters Date Type Department Care Team Description 05/03/2025 External Device Data STL ABSTRACTION Provider, Abstract 05/03/2025 External Device Data [facility] ABSTRACTION Provider, Abstract 05/03/2025 External Device Data [facility] ABSTRACTION Provider, Abstract 04/12/2025 External Device Data [facility] ABSTRACTION Provider, Abstract 03/23/2025 External Device Data [facility] ABSTRACTION Provider, Abstract 03/22/2025 External Device Data [facility] ABSTRACTION Provider, Abstract 03/16/2025 External Device Data [facility] ABSTRACTION Provider, Abstract 03/15/2025 External Device Data ST[facility] ABSTRACTION Provider, Abstract [...] on file Legal Sex Female 1:54 PM ACCOUNTS PAYABLE CLERK Gender Identity Not on file Sexual Orientation Not on file Last Filed Vital Signs Vital Sign Reading Time Taken Comments Blood Pressure 108/61 04/06/2013 3:03 PM ACCOUNTS PAYABLE CLERK Pulse 76 04/06/2013 3:03 PM ACCOUNTS PAYABLE CLERK Temperature - - Respiratory Rate - - Oxygen Saturation - - Inhaled Oxygen Concentration - - Weight 61.7 kg (136 lb) 04/06/2013 3:03 PM ACCOUNTS PAYABLE CLERK Height 172.7 cm (5' 8) 04/06/2013 3:03 PM ACCOUNTS PAYABLE CLERK Body Mass Index 20.68 04/06/2013 3:03 PM ACCOUNTS PAYABLE CLERK Plan of Treatment Health Maintenance Due Date [...] exists OSTEOPOROSIS SCREENING 2020 INFLUENZA VACCINE (#1) 2024 02/25/2021 RSV VACCINE (60+ or ) (1 - 1-dose 75+ series) 2030 Procedures Procedure Name Priority Date/Time Associated Diagnosis Comments MAMMO DIAGNOSTIC UNI RIGHT W OR WO CAD Routine 04/06/2013 2:47 PM ACCOUNTS PAYABLE CLERK Breast mass from Last 3 Months or Most Recently Relevant to Health Maintenance Results * MAMMO DIGITAL DIAG UNI RIGHT (04/06/2013 2:47 PM ACCOUNTS PAYABLE CLERK) Anatomical Region Laterality Modality Breast Right Mammography 04/06/2013 2:46 PM ACCOUNTS PAYABLE CLERK Narrative 04/07/2013 7:32 PM ACCOUNTS PAYABLE CLERK RIGHT BREAST FULL FIELD DIGITAL DIAGNOSTIC MAMMOGRAM [...] Most Recently Relevant to Health Maintenance Insurance mymission2 O OPEN ACCESS RX [employer] (INTERNAL) [facility] RX [employer] Medicare Part D Care Teams Strap Sewer Relationship Specialty Start Date End Date Mercedez Morillo MD [address] [place] [address] PCP - General Family Practice 04/06/13
--- NOTE | 2025-05-19 02:08 | PC.NURSE ---
Pt provided ice pack out in triage.
[2025-05-19 02:23] VITALS: BP 119/59; PULSE 76; RESP 18; O2SAT 97
[2025-05-19] MEDS: IBUPROFEN 400 MG TABLET 800 MG PO (04:27)
--- NOTE | 2025-05-19 04:29 | ED_ITS ---
HPI - General Adult General Chief complaint: Fall Stated complaint: fall- left elbow injury Time Seen by Provider: 05/19/25 04:08 History of Present Illness HPI narrative: patient 70-year-old female who presents emergency department chief complaint of left elbow pain. Patient reports that she missed step and fell landing on her left elbow patient also reports she had an abrasion to her left knee patient reports no loss of consciousness reports she is not on blood thinners. Patient reports that her left elbow is swollen and tender Related Data Home Medications ?Medication ?Instructions ?Recorded ?Confirmed ?Last Taken ?Type pimecrolimus 1 % topical cream 1 applic topical BID MN N ECZEMA 06/12/21 09/20/24 01/18/24 History calcium 600 mg (as 1 tablet PO DAILY 07/27/21 0 09/20/24 07/22/24 History carbonate)-vitamin D3 5 mcg (200 unit) tablet cetirizine 10 mg capsule (Zyrtec) 10 mg PO DAILY 07/2709/20/24 07/22/24 History levothyroxine 50 mcg tablet 50 mcg PO DAILY 07/27/21 0 09/20/24 07/23/24 History multivitamin with minerals 1 tablet PO DAILY 07/27/21 09/20/24 07/22/24 History denosumab 60 mg/mL subcutaneous 60 mg subcut [id number] 12/31/23 09/20/24 09/24/23 History syringe (Prolia) riboflavin (vitamin B2) 50 mg 50 mg PO DAILY 01/22/24 09/20/24 07/22/24 History tablet Allergies Allergy/AdvReac Type Severity Reaction Status Date / Time latex Allergy Mild REDNESS/IRR Verified 01/03/25 10:07 ITATION prednisone AdvReac Mild CONFUSION/D Verified 01/03/25 10:07 RUNK-FEELIN G amoxicillin AdvReac Unknown Diarrhea Verified 01/03/25 10:07 adhesive tape AdvReac REDNESS/IRR Verified 01/03/25 10:07 ITATION hydrocodone AdvReac VIVID Verified 01/03/25 10:07 DREAMING Review of Systems Review of Systems: A 10 system review of systems was completed on the patient and is negative except for what is stated in the HPI. Nursing and ancillary documentation was reviewed. [facility] Past Medical History Medical History Osteoporosis Broken ankle (~09/23/24) Mixed hyperlipidemia Hearing loss Chronic rhinitis Migraine headache Vaginal prolapse TMJ (temporomandibular joint disorder) History of colon polyps Hypothyroidism Surgical History Surgical History History of laparoscopic appendectomy 08/19Laparoscopic appendectomy Dr. Cortez Hx of tonsillectomy History of parathyroidectomy Family History Family History Sibling Malignant neoplasm of prostate Hypercholesteremia Mother Osteoporosis Grandparent Osteoporosis Other Family history of glaucoma Social History Social History Smoking status: Never smoker Second hand tobacco smoke exposure: No Alcohol intake: never Drinks per week: 0 Alcohol use details: RARE, 3 TIMES A YEAR Substance use: never Substance use type: does not use Lack of Transportation: No Lack of Food: Never True Current Housing: I Have Housing Concerned About Future Housing: No Difficulty Paying Gas/Electric Bills: No Difficulty Paying for Meds: No Currently Unemployed: No Education: Master's Degree or Higher Difficulty w/ Childcare or Family Care: No Living arrangements: with family Additional living arrangements comments: [place] Gender identity (if verbalized by the patient): Female Sexual Orientation (if Verbalized by the Patient): Straight or Heterosexual Spiritual care concerns: No Agree to blood products: Yes Exam Narrative: GENERAL: Well-appearing, well-nourished, and in no acute distress. HEAD: Normocephalic, atraumatic. EYES: PERRLA and EOMI. ENT: Nares clear, no rhinorrhea or epistaxis. Mucous membranes moist. NECK: Supple. CHEST: Clear to auscultation. No respiratory distress. HEART: Regular rate and rhythm. No murmur heard. Normal peripheral pulses. ABDOMEN: Soft, nontender, nondistended, normal active bowel sounds. EXTREMITIES: Normal range of motion there is tenderness to palpation the left elbow there is swelling present there is a tiny abrasion present but no signs of open fracture. No edema. SKIN: Warm, dry, no rash. NEURO: No focal deficits. Alert and oriented x3. PSYCH: Normal mood and affect. Course Vital Signs Vital signs: Vital Signs Temperature 36.5 C 05/18/25 22:58 Pulse Rate 89 05/18/25 22:58 Respiratory Rate 18 05/18/25 22:58 Blood Pressure 134/66 05/18/25 22:58 Pulse Oximetry 99 05/18/25 22:58 Oxygen Delivery Room Air 05/18/25 22:58 Temperature 36.5 C 05/18/25 22:58 Pulse Rate 76 05/19/25 02:23 Respiratory Rate 18 05/19/25 02:23 Blood Pressure 119/59 L 05/19/25 02:23 Pulse Oximetry 97 05/19/25 02:23 Oxygen Delivery Room Air 05/18/25 22:58 MDM Differential Diagnosis Differential Diagnosis: differential diagnosis includes fracture, contusion, dislocation plain film x-rays left elbow showed evidence of olecranon fracture with significant displacement. The case was discussed with Dr. Adame his on-call for Orthopedic surgery who recommended the patient be splinted and follow up in the office Discharge Plan Discharge Clinical Impression: Closed olecranon fracture Patient Disposition: Home Condition: Stable Instructions: Antibiotic Form, Elbow Fracture (ED) Patient Language: Bulgarian Prescriptions: No Action conjugated estrogens 0.625 mg/gram cream 0.625 mg vaginal 2XW Qty: 30 0RF Prolia 60 mg/mL syringe 60 mg subcut [id number] sumatriptan succinate 100 mg tablet See Rx Instructions PO .COMPLEX Qty: 9 3RF Rx Instructions: take 1 tab at onset of headache; if no relief, may repeat 1 tab after at least 2 hrs; max = 2 tabs/24 hrs PO pimecrolimus 1 % cream 1 applic topical BID PRN (Reason: ECZEMA) calcium carbonate-vitamin D3 600 mg-5 mcg (200 unit) Tablet 1 tablet PO DAILY levothyroxine 50 mcg tablet 50 mcg PO DAILY Patient Comments: QAM multivitamin with minerals Tablet 1 tablet PO DAILY Zyrtec 10 mg Capsule 10 mg PO DAILY psyllium Powder 1 tbsp PO DAILY Qty: 300 0RF Rx Instructions: mix into at least 8 oz of water or juice before administering azelastine 137 mcg (0.1 %) spray,non-aerosol 1 spray intranasal Q12H PRN (Reason: sinus symptoms) Qty: 30 0RF Rx Instructions: administer into each nostril riboflavin (vitamin B2) 50 mg Tablet 50 mg PO DAILY Follow-up/Referrals: Charlie Crouch MD [Physician, Orthopedics] Uriel Billings MD [Physician, Family Practice] PHYSICIAN,BUSINESS INTELLIGENCE DEVELOPER [Primary Care Provider, Internal Medicine] Time of Disposition: 04:32
[2025-05-19 05:03] VITALS: BP 115/58; PULSE 72; RESP 17; O2SAT 96
[2025-05-19 05:04] VITALS: BP 115/58; PULSE 72; RESP 17; O2SAT 96
== END 2025-05-19 05:08 | disposition home or self-care (01) ==
PROVIDERS: Emergency Provider Emergency Medicine
DX: S52.022A Displaced fracture of olecranon process without intraarticular extension of left ulna, initial encounter for closed fracture (principal); E78.5 Hyperlipidemia, unspecified; E03.9 Hypothyroidism, unspecified; W10.9XXA Fall (on) (from) unspecified stairs and steps, initial encounter
CPT/HCPCS: 73070; 99283; A4565; A9270

== ENCOUNTER 2025-05-23 01:04 | Day surgery (SDC) | payer MEDICARE, SELFPAY ==
--- NOTE | 2025-05-20 10:27 | PC.NURSE ---
[facility] has started construction of its new state of the art ER which will open Spring 2026. With this, we anticipate parking may be a challenge for some our surgical patients and families. Parking spaces are limited but are available for all Surgical, obstetrics, and ER patients sharing this lot. If you arrive and find you are having a hard time finding a parking space, please note that we understand the challenges, please drive around the hospital and park near Hospital Entrance 1. When you enter this entrance, you can ask a volunteer to direct or take you back to the surgical waiting area to check in. We appreciate everyone?s understanding of these expected challenges while we build for your future. Report to the Outpatient Waiting Room, entrance under the green pavilion located off [address], at time _6am on date _05/23/25 . Planned Procedure Time: _7:30 am .? Time changes happen often and if your time is changed the preop area will call you the afternoon before. - You and your visitor will be asked to self-screen and do not enter if you have any COVID symptoms. Please call surgeon if you need to reschedule. - A mask is optional within the hospital at this time. Patients may have clear liquids (water, carbonated beverages, clear teas, apple juice) until 3 hours prior to surgery( 4:30 am) with a maximum of 20 ounces. - No food from midnight until time of surgery and no smoking, or chewing tobacco (or any form of nicotine). No chewing gum, candy or mints. - Take only the following medications with a SIP of water on the morning of surgery: LEVOTHYROXINE DO NOT STOP ANY OF YOUR OTHER PRESCRIPTION MEDICATIONS PRIOR TO SURGERY EXCEPT THE FOLLOWING Hold all vitamins and supplements for 3 days per anesthesiologist.LAST DOSE PER PT 05/20/25 Medications to discontinue per physician NONE Please no make-up, nail chinese, hairspray, perfume, deodorant, or body powder the day of surgery.? No jewelry (including any body piercings) or valuables the day of surgery, leave them at home.? Please take a shower or bath the night before, or the morning of, surgery with an antibacterial soap.? Wear comfortable, loose fitting clothing.? Children are encouraged to wear pajamas. - Jewelry must be removed prior to entering the operating room.? Rings and piercings that are not removed may be cut off. - The hospital will not accept responsibility for valuables.? - Please leave all valuables, including medications, at home the day of surgery. If you are going home after surgery, a licensed racing car driver must drive you home.? - NO public transportation without another adult if you receive anesthesia. - We recommend that an adult stay with you for 24 hours following discharge. - We also recommend that you do not drive, make important decision, drink alcoholic beverages, or take any drugs that were not prescribed by your health care provider for at least 24 hours after your discharge time. For Pediatric surgeries, we recommend two adults accompany the child home. Follow any additional instructions given to you from your surgeon. Telephone instructions given to ___PATIENT and asked if any additional questions and then verbalized understanding. Patient advised to call surgeon office or pre surgery nurse liaison [phone] if any additional questions.
[2025-05-20 10:43] VITALS: BMI 21.1
[2025-05-23] VITALS (12 sets, daily range): BP systolic 98–134; BP diastolic 57–74; PULSE 70–86; RESP 12–20; TEMP 36.2; O2SAT 95–100; BMI 21.4
--- NOTE | ~2025-05-23 | XR_ITS ---
EXAMINATION: XR surgery orthopedic DATE: 05/23/2025 08:46 INDICATION: ORIF left elbow fracture TECHNIQUE: 3 fluoroscopic images of the left elbow were obtained procedure performed by Dr. Crouch. Radiologist was not present for the imaging or procedure. The amount of fluoroscopy time used during this procedure was 0.5 minutes. The dose area product was 0.212 mGym^2. COMPARISON: Radiographs dated 05/18/2025 FINDINGS: Interval open reduction and internal fixation of the previously distracted olecranon fracture which has been reduced to near anatomic alignment. The fracture is fixed with a dorsal plate and screws. IMPRESSION: 1. Fluoroscopy utilized during open reduction and internal fixation of the previously distracted olecranon fracture which is now in near-anatomic alignment. See procedure note for further detail. Reviewed, dictated and finalized at location A. STICAL ENGINEER IMPRESSION: 1. Fluoroscopy utilized during open reduction and internal fixation of the prev iously distracted olecranon fracture which is now in near-anatomic alignment. S ee procedure note for further detail.
--- OUTSIDE RECORDS SUMMARY | 2025-05-23 01:07 | XMS_ITS | Clinical Summary ---
Author Organization [facility] Address [address] [place] [address] Care Team Providers Care Senior Analysis Specialist Name Role Phone Unavailable Primary Care Provider Unavailabl e Source Comments [facility] [employer],non-owned Affiliates and Associated Physician Practices is amultiple site organization consisting of ambulatory clinics and hospital sitesin [place], [place], [place] and [place]. This disclosure is being madepursuant to the Care Everywhere program and may not contain all information available regarding this patient. Last updated 18.[facility] [employer] Social History Tobacco Use Types Packs/Day Years [...] patient's age to complete this topic Insurance [employer] [facility] Address: [address] [place] [address] [facility] MEDICARE ADV AENA MEDICARE ADV SELF PAY NO INSURANCE Member Subscriber Plan / Payer (Ef fective for All Dates) Name:Abbey Mckenzie Member ID:Not on file Relation to Subscriber:Not on file Name:ABBEY MCKENZIE Subscriber ID:Not on file (Home) Address: [address] [place] [address] [place] [address] Payer ID:Not on file Group ID:Not on file Type:Self Pay Address: [place], [place]
--- OUTSIDE RECORDS SUMMARY | 2025-05-23 01:07 | XMS_ITS | Encounter Summary ---
Author Organization [facility] Address [address] [place] [address] Care Team Providers Care Screw Machine Hand Name Role Phone Unavailable Primary Care Provider Unavailabl e Encounter Details Date Type Department Care Team (Late st Contact Info) Description 11/25/2019 Lab Requisition [facility] Derm[facility] Lab [address] [place] [address] Venkatesh Woodson MD [address] [place] [id number] Social History Tobacco Use Types Packs/Day Years [...] AM CDT) Case Report Dermatopathology Report Case: [id number] Authorizing Provider: Venkatesh Woodson MD Collected: 11/23/2019 12:00 AM Ordering Location: [facility] Derm[facility] Lab Received: 11/25/2019 10:45 AM Pathologist: Nicole Gerardo MD Specimen: Skin, right upper buttock 0 1:12 PM CDT DERMATOPATHOLOGY LABORATORY Final Diagnosis Specimen A. 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 Path # [id number]. 0 1:12 PM CDT DERMATOPATHOLOGY LABORATORY Gross Description Specimen A: Received is one formalin filled container labeled with the patient's name and designated right upper buttock. The specimen consists of a shave biopsy measuring [id number]. Jar 0. 0 1:12 PM CDT DERMATOPATHOLOGY [...] determined by the Dermatopathology Laboratory at [facility], directed by Dr. Virgie Martinez. These tests need not be, and therefore are not, approved by the [place] Food and Drug Administration. The tests are used for clinical purposes. Billing Codes Specimen Charges Stain Charges 79561 1 0 1:12 PM CDT DERMATOPATHOLOGY LABORATORY Embedded Images 0 1:12 PM CDT DERMATOPATHOLOGY LABORATORY Pathology/Cytolog y TISSUE SPECIMEN FROM SKIN / Unknown 11/23/2019 11/25/2019 10:45 AM CDT us Venkatesh Woodson MD LAB - PATHOLOGY/CYTOLOGY ORDER UDAY Final Result DERMATOPATHOLOGY LABORATORY [facility] - Department of Dermatology Medical [place] [address], [facility] [phone] documented in this encounter Visit Diagnoses Not on filedocumented in this encounter
--- OUTSIDE RECORDS SUMMARY | 2025-05-23 01:07 | XMS_ITS | Encounter Summary ---
Author Organization [facility] Address [address] [place] [address] Phone Care Team Providers Care Agronomy Technician Name Role Phone Mercedez Morillo MD Primary Care Provider [phone] Encounter Details Date Type Department Care Team (Late st Contact Info) Description 03/03/2023 Treatment [facility] [address] [facility] Advanced Medicine 5th [place] [address] [place] [address] Robert Berry MD [address] [facility] [address] [place] [address] Social History Tobacco Use Types [...] on file Legal Sex Female 11:14 AM CLERICAL SECRETARY Gender Identity Female 08/22/2020 9:50 AM CDT Sexual Orientation Straight 08/22/2020 9: 50 AM CDT documented as of this encounter Plan of Treatment Not on file documented as of this encounter Visit Diagnoses Not on filedocumented in this encounter Care Teams Agronomy Technician Relationship Specialty Start Date End Date Mercedez Morillo MD PCP - General 08/26/16 documented as of this encounter
--- OUTSIDE RECORDS SUMMARY | 2025-05-23 01:07 | XMS_ITS | Clinical Summary ---
Author Organization [facility] [place] Address [address] [place] [id number] Care Team Providers Care Steward/Stewardess Wine Name Role Phone Mercedez Morillo MD Primary Care Provider [phone] Allergies Active Allergy Reactions Criticality Noted Date [...] 1 tablet (50 mcg total) by mouth insurance verify rep before breakfast 90 tablet 3 5 Active [...] check Assessment & Plan (05/13/2022 5:21 PM CRADLE SLIDE MAKER): -currently managed with #3 Ring -discussed trial [...] 06/28/2021 Assessment & Plan (07/18/2022 4:16 PM CRADLE SLIDE MAKER): Continue Levothyroxine 50 mcg daily Assessment & Plan (06/28/2021 12:28 PM CRADLE SLIDE MAKER): With hypercholesterolemia Will start LT4 50 mcg daily, which can help to lower cholesterol Recheck TSH, FT4 in 3 m Vitamin D deficiency 06/28/2021 Assessment & Plan (07/08/2023 12:51 PM CRADLE SLIDE MAKER): Chronic, well controlled UD 25 OH vit D levels Will adjust vit D dose if indicated Assessment & Plan (06/28/2021 12:30 PM CRADLE SLIDE MAKER): Check vit D levels Adjust dose of vit D accordingly Family history of pituitary disease 09/02/2017 Osteoporosis 05/04/2013 Overview (08/29/2016): Osteoporosis Assessment & Plan (07/08/2023 12:50 PM CRADLE SLIDE MAKER): Chronic , well controlled Prolia very 6 [...] calcium Assessment & Plan (07/18/2022 4:18 PM CRADLE SLIDE MAKER): Continue Forteo. Continue Ca and vit D After completing 2 years of Forteo, in December, will consider starting Prolia Assessment & Plan (06/28/2021 12:27 PM CRADLE SLIDE MAKER): Continue Forteo Weight bearing exercise Calcium and [...] disease Assessment & Plan (07/08/2023 12:51 PM CRADLE SLIDE MAKER): Chronic, well controlled UD TFTs Continue Levothyroxine [...] Type Department Care Team Description 05/03/2025 Telephone [facility] [address] [facility] Advanced Medicine 13th [place] [address] [place] [id number] Robert Berry MD 05/02/2025 10:40 AM CRADLE SLIDE MAKER Office Visit [facility] [address] [facility] Advanced [facility] 13th [place] [address] [place] [address] Robert Berry MD Osteoporosis, unspecified osteoporosis type, unspecified pathological fracture presence (Primary Dx) 05/02/2025 10:10 AM CRADLE SLIDE MAKER Clinical Support [facility] [address] [facility] Floor 1, [address] [place] [id number] Osteoporosis, unspecified osteoporosis type, unspecified pathological fracture presence 04/28/2025 2:00 PM CRADLE SLIDE MAKER Infusion [facility] [address] [facility] [address] [place] [address] Other osteoporosis without current pathological fracture (Primary Dx) 04/14/2025 Results Follow-Up [facility] [address] [facility] Advanced Medicine 13th [place] [address] [place] [address] Robert Berry MD Basic metabolic panel, Vitamin D 25 hydroxy, eGFR 04/13/2025 10:20 AM CRADLE SLIDE MAKER Lab [facility] [address] [place] [address] Other osteoporosis without current pathological fracture; Osteoporosis, [...] on file Legal Sex Female 11:14 AM CRADLE SLIDE MAKER Gender Identity Female 08/22/2020 9:50 AM CDT [...] Comments Blood Pressure 121/57 04/28/2025 2:04 PM CRADLE SLIDE MAKER Pulse 80 04/28/2025 2:04 PM CRADLE SLIDE MAKER Temperature 36.3 C (97.3 F) 04/28/2025 2:04 PM CRADLE SLIDE MAKER Respiratory Rate 17 04/28/2025 2:04 PM CRADLE SLIDE MAKER Oxygen Saturation 96% 10/21/2024 2:11 PM CDT Inhaled Oxygen Concentration - - Weight 61.1 kg (134 lb 12.8 oz) 025 10:44 AM CRADLE SLIDE MAKER Height 172 cm (5' 7.72) 05/02/2025 10: 44 AM CRADLE SLIDE MAKER Body Mass Index 20.67 05/02/2025 10:44 AM CRADLE SLIDE MAKER Plan of Treatment Health Maintenance Due Date [...] Read Routine (OP Routine) 05/02/2025 10:32 AM CRADLE SLIDE MAKER Osteoporosis, unspecified osteoporosis type, unspecified pathological fracture presence EGFR Routine 04/13/2025 10:24 AM CRADLE SLIDE MAKER Other osteoporosis without current pathological fracture Osteoporosis, unspecified osteoporosis type, unspecified pathological fracture presence VITAMIN D 25 HYDROXY Routine 04/13/2025 10:24 AM CRADLE SLIDE MAKER Other osteoporosis without current pathological fracture Osteoporosis, unspecified osteoporosis type, unspecified pathological fracture presence BASIC METABOLIC PANEL Routine 04/13/2025 10:24 AM CRADLE SLIDE MAKER Other osteoporosis without current pathological fracture Osteoporosis, [...] Forearm Bone Density Scan (05/02/2025 10:32 AM CRADLE SLIDE MAKER) Anatomical Region Laterality Modality Wrist, Body N/A Radiographic Dora ging Narrative 05/02/2025 4:32 PM CRADLE SLIDE MAKER Patient Name: Vilma Mckenzie Date of : [...] by the International Society of Clinical Densitometry. [id number] Robert Berry MD [facility] DXA PROCEDURES Final Re sult * eGFR (04/13/2025 10:24 AM CRADLE SLIDE MAKER) eGFR 80 >=60 mL/min/1. 73 m2 Comment: [...] reviewed 2021. Blood 04/13/2025 10:2 4 AM CRADLE SLIDE MAKER 04/13/2025 2:40 PM CRADLE SLIDE MAKER Robert Berry MD LAB BLOOD ORDERABLES Final Result Performing Organization Address [facility] Co de Phone Number [address] [place] [address] * Vitamin D 25 hydroxy (04/13/2025 10:24 AM CRADLE SLIDE MAKER) [facility] Vitamin D 25-OH 48.0 30.0 - 80.0 ng/mL Blood 04/13/2025 10:2 4 AM CRADLE SLIDE MAKER 04/13/2025 2:40 PM CRADLE SLIDE MAKER Robert Berry MD LAB BLOOD ORDERABLES Final Result Performing Organization Address City/[facility] Co de Phone Number [address] [place] [address] * Basic metabolic panel (04/13/2025 10:24 AM CRADLE SLIDE MAKER) [facility] Sodium 138 135 - 145 mmol/L Potassium, pl 4.6 3.3 - 4.9 mmol/L [facility] Chloride 106 97 - 110 mmol/L [facility] CO2 23 22 - 32 mmol/L [facility] Anion gap 9 2 - 15 mmol/L [facility] BUN 18 6 - 25 mg/dL [facility] Creatinine 0.80 0.60 - 1.10 mg/dL [facility] Glucose 86 70 - 199 mg/dL [facility] Comment: Interpretive Data Fasting glucose >/= [...] 2022. Calcium 9.2 8.5 - 10.3 mg/dL [facility] Blood 04/13/2025 10:2 4 AM CRADLE SLIDE MAKER 04/13/2025 2:40 PM CRADLE SLIDE MAKER us Robert Berry MD LAB BLOOD ORDERABLES Final Result [facility] [address] [facility] Department [place] [address] * Dexa TBS Axial Skeleton Bone Density 1 or more sites (03/03/2023 10:04 AM CDT) Anatomical Region Laterality Modality Wrist, Body N/A Radiographic Dora ging Narrative 03/03/2023 10:29 AM CDT Patient Name: Vilma Mckenzie Date of : 1955 Date of scan: 03/03/2023 Bone mineral density was performed on a [employer] Densitometer. Based on machine cross-calibration and [...] by the International Society of Clinical Densitometry. [id number] Robert Berry MD IMG DXA PROCEDURES Final Re sult from Last 3 Months or Most Recently Relevant to Health Maintenance Insurance T MEDICARE T MEDICARE T MEDICARE Advance Directives For more information, please contact: [phone] * Full Code (Latest Code Status on File) Date Activated Date Inactivated Comments 09/01/2024 11:23 AM 09/01/2024 5:34 PM Care Teams Steward/Stewardess Wine Relationship Specialty Start Date End Date Mercedez Morillo MD PCP - General 08/26/16
--- OUTSIDE RECORDS SUMMARY | 2025-05-23 01:07 | XMS_ITS | Encounter Summary ---
Author Organization [facility] Address [address] [place] [address] Phone Care Team Providers Care Sew Out Operator Name Role Phone Mercedez Morillo MD Primary Care Provider [phone] Encounter Details Date Type Department Care Team (Late st Contact Info) Description 04/14/2025 Results Follow-Up [facility] [address] [facility] Advanced Medicine 13th [place] [address] [place] [address] Robert Berry MD [address] [facility] [address] [place], [place] [id number] Basic metabolic panel, Vitamin D 25 hydroxy, [...] on file Legal Sex Female 11:14 AM DRESSED POULTRY GRADER Gender Identity Female 08/22/2020 9:50 AM CDT Sexual Orientation Straight 08/22/2020 9: 50 AM CDT documented as of this encounter Miscellaneous Notes * Result Encounter Note - Robert Berry MD - 04/14/2025 1:57 PM DRESSED POULTRY GRADER All labs including vitamin D are normal. We can continue with the Prolia. RC SED POULTRY GRADER documented in this encounter Plan of Treatment Not on file documented as of this encounter Visit Diagnoses Not on filedocumented in this encounter Care Teams Sew Out Operator Relationship Specialty Start Date End Date Mercedez Morillo MD PCP - General 08/26/16 documented as of this encounter
[2025-05-23] MEDS: ACETAMINOPHEN 500 MG TABLET 1000 MG PO (06:25)
[2025-05-23] MEDS: KETOROLAC 15 MG/ML VIAL (*BKC) IV PUSH (06:25)
--- NOTE | 2025-05-23 07:04 | WPDANESEPPF ---
Anes - Initial Pre Proc Eval Procedure: Operation Date: 05/23/25 07:30 Proposed Procedures p Open Reduction Internal Fixation of Left Elbow Fracture - Charlie Crouch MD Date/Time: 05/23/25 07:04 Surgeon: Charlie Crouch MD Pre Op Diagnosis: Left Elbow Fracture Patient Data Age: 70 Gender: F Height: 1.7 m Weight: 62.1 kg Allergies Allergy/AdvReac Type Severity Reaction Status Date / Time latex Allergy Mild REDNESS/IRR Verified 05/23/25 06:32 ITATION prednisone AdvReac Mild CONFUSION/D Verified 05/23/25 06:32 RUNK-FEELIN G amoxicillin AdvReac Unknown Diarrhea Verified 05/23/25 06:32 Sulfa (Sulfonamide AdvReac Unknown Other Verified 05/23/25 06:32 Antibiotics) adhesive tape AdvReac REDNESS/IRR Verified 05/23/25 06:32 ITATION hydrocodone AdvReac VIVID Verified 05/23/25 06:32 DREAMING Home Medications ?Medication ?Instructions ?Recorded ?Confirmed ?Type pimecrolimus 1 % topical cream 1 applic topical BID PRN ECZEMA 06/12/21 05/20/25 History calcium 600 mg (as 1 tablet PO DAILY 07/27/21 05/23/25 History carbonate)-vitamin D3 5 mcg (200 unit) tablet cetirizine 10 mg capsule (Zyrtec) 10 mg PO DAILY 07/27/21 05/20/25 History levothyroxine 50 mcg tablet 50 mcg PO DAILY 07/27/21 05/23/25 History multivitamin with minerals 1 tablet PO DAILY 07/27/21 05/23/25 History conjugated estrogens 0.625 mg/gram 0.625 mg vaginal 2XW #30 grams 12/11/21 05/20/25 Rx vaginal cream denosumab 60 mg/mL subcutaneous 60 mg subcut [id number] 12/31/23 05/20/25 History syringe (Prolia) sumatriptan succinate 100 mg tablet See Rx Instructions PO .COMPLEX #9 12/31/23 05/20/25 Rx tabs riboflavin (vitamin B2) 50 mg 50 mg PO DAILY 01/22/24 05/23/25 History tablet azelastine 137 mcg (0.1 %) nasal 1 spray intranasal Q12H PRN sinus 03/30/25 05/20/25 Rx spray symptoms #30 mL psyllium 1 tbsp PO PRN 05/20/25 05/20/25 History Patient hx anesthesia problems: none Family hx anesthesia problems: none Results Review: All pre-operative results and documents have been reviewed as part of the pre-operative evaluation. [facility] Past Medical History Medical History Osteoporosis Broken ankle (~09/23/24) Mixed hyperlipidemia Hearing loss Chronic rhinitis Migraine headache Vaginal prolapse TMJ (temporomandibular joint disorder) History of colon polyps Hypothyroidism Surgical History Surgical History History of laparoscopic appendectomy 08/19Laparoscopic appendectomy Dr. Cortez Hx of tonsillectomy History of parathyroidectomy Family History Family History Sibling Malignant neoplasm of prostate Hypercholesteremia Mother Osteoporosis Grandparent Osteoporosis Other Family history of glaucoma Social History Social History Smoking status: Never smoker Second hand tobacco smoke exposure: No Alcohol intake: never Drinks per week: 0 Alcohol use details: RARE, 3 TIMES A YEAR Substance use: never Substance use type: does not use Lack of Transportation: No Lack of Food: Never True Current Housing: I Have Housing Concerned About Future Housing: No Difficulty Paying Gas/Electric Bills: No Difficulty Paying for Meds: No Currently Unemployed: No Education: Master's Degree or Higher Difficulty w/ Childcare or Family Care: No Living arrangements: with family Additional living arrangements comments: [place] Gender identity (if verbalized by the patient): Female Sexual Orientation (if Verbalized by the Patient): Straight or Heterosexual Spiritual care concerns: No Agree to blood products: Yes Anes - Eval Final PreProcedure Day of Procedure 05/23/25 07:04 Patient weight: normal Heart: regular rate and rhythm Lungs: clear to auscultation Airway: Mallampati scale class II Neurological: alert and oriented Last oral intake: >/= 8 hours ASA classification: II Emergent: no Anesthetic plan: proceed Anesthesia type and monitoring: general LMA and standard monitoring Results Review: All pre-operative results and documents have been reviewed as part of the pre-operative evaluation. Informed Consent: The patient's anesthetic plan and its attendant risks and benefits were discussed with the patient/family/POA. Questions were solicited and answers provided to the satisfaction of the patient/family/POA.
--- NOTE | 2025-05-23 07:07 | WPDHPUPDATE1 ---
History and Physical Update Update Date/Time: 05/23/25 07:07 History and Physical has been reviewed, including an updated exam of the patient. There are NO changes in the patient's condition. Risks, benefits, and alternatives have been discussed and questions answered. Patient agrees to proceed with procedure.
[2025-05-23] MEDS: ceFAZolin 2 GM in SODIUM CHLORIDE 0.9% IV 50 ML 100 ML IVPB (07:25)
[2025-05-23] MEDS: BUPivacaine HCL 0.5% 10 ML AMP 20 ML INFILTRATE (07:53)
[2025-05-23] MEDS: LACTATED RINGERS 1,000 ML 30 ML IV CONT (09:04)
--- NOTE | 2025-05-23 09:21 | P.OP_ITS ---
Procedure Note - Detailed Date of Procedure 05/23/25 Pre-op Diagnosis Left Elbow olecranon Fracture Post-op Diagnosis Same Procedure Performed Open reduction internal fixation left proximal ulna olecranon fracture Surgeon Charlie Crouch MD Correctional Supervisor 1st blood donor unit assistant Anesthesia General Indications 70-year-old woman who fell and sustained a left elbow olecranon fracture with displacement. Presents for operative treatment. Description of Procedure Patient identified in the preoperative holding. Informed consent given. Operative extremity marked. Patient received intravenous antibiotics. Patient brought to the operating room where underwent general anesthetic by anesthesia team. Positioned supine on operating room table. Time-out performed confirming the patient, site of the surgery and the plan. Left elbow then prepped and draped in usual sterile surgical fashion using a ChloraPrep skin solution. The splint which had been placed in the emergency room was removed prior to prepping there was ecchymosis and swelling at the olecranon on soft tissue but no wound breakdown or open areas. Local anesthetic with 0.5% Marcaine plain. Longitudinal incision made centered over the proximal ulna and the olecranon with a 15 blade knife. Hemostasis controlled electrocautery. Dissection carried down to the proximal ulna bone and soft tissue was carefully elevated medially and laterally off of this. Fracture was identified. The olecranon fracture was intra-articular and had displaced proximally leaving the posterior aspect of the distal humerus exposed. This was thoroughly irrigated and suctioned. The articular surface was intact. Fracture was then reduced and provisionally pinned and checked with image intensification. Fixation achieved with a proximal ulna plate from the Arthrex fracture set. Cortical screws placed distal along the ulnar shaft. 1 intra-articular screw placed from the posterior olecranon across the fracture and into the anterior cortex. Final fixation achieved with the remaining holes. Elbow taken through range of motion and noted to be stable. No impingement noted. Fluoroscopy confirmed reduction of fracture and placement of the hardware. Wound irrigated and the fascia repaired over the plate with 2-0 Vicryl interrupted suture. Subcutaneous tissue repaired with 3-0 Monocryl interrupted suture and skin repaired with 3-0 nylon interrupted suture. Tourniquet which had been inflated prior to incision was released. Good capillary refill noted in the hand and fingers. Sterile dressing applied. The patient was then woken from anesthesia, extubated and taken to the recovery room in stable condition. All sponge, needle, instrument counts were correct at the end of the case. Implants Arthrex proximal ulna olecranon plate and screws. Estimated Blood Loss 10 Tourniquet Time Total Tourniquet Time: 60 Drains No Packing No Pathology None sent Complications None Condition Stable Disposition PACU [facility] Billing Surgery - Charge Forward: Surgery Billing ([id number])
[2025-05-23] MEDS: fentaNYL CITRATE INJ (*CRX) 100 MCG/2 ML VIAL 25 MCG IV PUSH ×4 (09:47→09:58)
[2025-05-23] MEDS: oxyCODONE HCL (*CRX) 2.5 MG TAB IR PO (11:49)
== END 2025-05-23 13:00 | disposition home or self-care (01) ==
PROVIDERS: PCP Student in an Organized Health Care Education/Training Program; Visit Provider Orthopaedic Surgery
PROC: (CPT 24685; principal; 2025-05-23 07:30)
DX: S52.022A Displaced fracture of olecranon process without intraarticular extension of left ulna, initial encounter for closed fracture (principal); W19.XXXA Unspecified fall, initial encounter
CPT/HCPCS: 24685; 99199; J0690; A4565; A9270; C1769; J1100; J1885; J2003; J2250; J2405; J2704; J3010; J7120